=== PATIENT | male | born 1960 | race Caucasian/White ===

== ENCOUNTER 2021-08-19 13:45 | Inpatient (IN) | payer MEDICAID, OTHER ==
[~2021-08-19] VITALS: Ht 162.6 cm; Wt 128.7 kg
[2021-08-19 14:18] LABS: Basophils # (auto) 0.1 10 ^3/uL (0-0.2); Basophils % (auto) 0.8 % (0.0-2.0); Eosinophils # (auto) 0.7 10 ^3/uL (0-0.8); Eosinophils % (auto) 5.6 % (0.0-7.0); Hematocrit 45.5 % (41.0-53.0); Hemoglobin 15.6 g/dL (13.5-17.5); Lymphocytes # (auto) 1.7 10 ^3/uL (0.4-5.4); Lymphocytes % (auto) 14.4 % (10.0-50.0); Mean Corpuscular Hemoglobin 31.6 pg (28.0-32.0); Mean Corpuscular Hgb Conc. 34.2 g/dL (32.0-36.0); Mean Corpuscular Volume 92.5 fL (80.0-100.0); Monocytes # (auto) 1.2 10 ^3/uL (0-1.3); Monocytes % (auto) 10.2 % (0.0-12.0); Neutrophils # (auto) 8.3 10 ^3/uL (1.6-8.6); Nucleated Red Blood Cells % 0.1 %; Red Blood Cells 4.92 10^6/uL (4.5-5.90); Red Cell Distribution Width 13.1 % (11.8-14.3)
[2021-08-19 14:34] LABS: Albumin 3.7 g/dL (3.4-5.0); BUN/Creatinine Ratio 20.8; Calcium 9.6 mg/dL (8.5-10.1); Potassium 4.4 mmol/L (3.5-5.1)
[2021-08-19 14:37] LABS: Bilirubin, Total 0.7 mg/dL (0.2-1.0); Total Protein 8.1 g/dL (6.4-8.2)
[2021-08-19] MEDS ORDERED: ENOXAPARIN SOD 120 MG/0.8 ML SYRINGE SC ONE (15:30)
[2021-08-19] MEDS ORDERED: ONDANSETRON HCL 4 MG/2 ML VIAL IV ONE (16:00)
[2021-08-19] MEDS ORDERED: MORPHINE SULFATE 4 MG/ML SYR/VIAL IV ONE (16:00)
[2021-08-19] MEDS ORDERED: NITROGLYCERIN 0.4 MG SL TAB SL PRN (16:30)
[2021-08-19] MEDS ORDERED: MORPHINE SULFATE INJECTION 2 MG/ML SYRG IV PRN ×2 (16:30)
[2021-08-19] MEDS ORDERED: ONDANSETRON HCL 4 MG/2 ML VIAL IV PRN (16:30)
[2021-08-19] MEDS ORDERED: ACETAMINOPHEN 500 MG TAB PO PRN (16:30)
[2021-08-19] MEDS ORDERED: IOHEXOL 350 MG/ML 100ML IJ ONE (16:36)
[2021-08-19] MEDS: SODIUM CHLORIDE 0.9% 1,000 ML IV SCH (17:44)
[2021-08-19] MEDS: HYDROcodone-ACET 5/325MG TAB PO PRN (19:08)
[2021-08-20] MEDS: SODIUM CHLORIDE 0.9% 1,000 ML IV SCH ×2 (05:56→16:27)
[2021-08-20] MEDS ORDERED: ENOXAPARIN SOD 120 MG/0.8 ML SYRINGE SC SCH (06:00)
[2021-08-20] MEDS: LOSARTAN POTASSIUM 25 MG TAB PO SCH (09:16)
[2021-08-20] MEDS: amLODIPine BESYLATE 5 MG TAB PO SCH (09:17)
[2021-08-20] MEDS: PANTOPRAZOLE 40 MG TAB PO SCH (09:17)
[2021-08-20] MEDS: HYDROcodone-ACET 5/325MG TAB PO PRN ×3 (10:52→21:32)
[2021-08-20 13:06] LABS: INR 1.21 (0.9-1.15); Partial Thromboplastin Time 36.1 sec (23.6-33.0)
[2021-08-20] MEDS: ENOXAPARIN SOD 120 MG/0.8 ML SYRINGE SC SCH (21:32)
[2021-08-20 22:00] VITALS: BP 140/73
[2021-08-20 22:30] VITALS: BP 143/68
[2021-08-21] MEDS: HYDROcodone-ACET 5/325MG TAB PO PRN ×3 (03:30→21:10)
[2021-08-21 05:39] VITALS: BP 152/78
[2021-08-21 06:47] LABS: Basophils # (auto) 0.1 10 ^3/uL (0-0.2); Basophils % (auto) 0.8 % (0.0-2.0); Eosinophils # (auto) 1.1 10 ^3/uL (0-0.8); Eosinophils % (auto) 10.6 % (0.0-7.0); Hematocrit 41.2 % (41.0-53.0); Hemoglobin 14.4 g/dL (13.5-17.5); Lymphocytes # (auto) 1.7 10 ^3/uL (0.4-5.4); Lymphocytes % (auto) 16.5 % (10.0-50.0); Mean Corpuscular Hemoglobin 32.7 pg (28.0-32.0); Mean Corpuscular Volume 93.5 fL (80.0-100.0); Monocytes # (auto) 1.2 10 ^3/uL (0-1.3); Monocytes % (auto) 11.4 % (0.0-12.0); Neutrophils # (auto) 6.4 10 ^3/uL (1.6-8.6); Neutrophils % (auto) 60.7 % (37.0-80.0); Nucleated Red Blood Cells % 0.1 %; Red Blood Cells 4.41 10^6/uL (4.5-5.90); Red Cell Distribution Width 12.9 % (11.8-14.3); White Blood Cell 10.6 10^3/uL (4.4-10.8)
[2021-08-21 07:01] LABS: INR 1.11 (0.9-1.15)
[2021-08-21 07:23] LABS: Magnesium 2.3 mg/dL (1.6-2.6); Potassium 4.3 mmol/L (3.5-5.1)
[2021-08-21 07:31] LABS: Albumin 3.2 g/dL (3.4-5.0); BUN/Creatinine Ratio 25.5; Bilirubin, Total 0.6 mg/dL (0.2-1.0); Calcium 9.4 mg/dL (8.5-10.1); Total Protein 7.4 g/dL (6.4-8.2)
[2021-08-21 09:00] VITALS: BP 109/62
[2021-08-21] MEDS: SODIUM CHLORIDE 0.9% 1,000 ML IV SCH (09:00)
[2021-08-21] MEDS: amLODIPine BESYLATE 5 MG TAB PO SCH (10:30)
[2021-08-21] MEDS: LOSARTAN POTASSIUM 25 MG TAB PO SCH (12:09)
[2021-08-21] MEDS: ENOXAPARIN SOD 120 MG/0.8 ML SYRINGE SC SCH ×2 (12:10→21:09)
[2021-08-21] MEDS: PANTOPRAZOLE 40 MG TAB PO SCH (12:10)
[2021-08-21 13:00] VITALS: BP 138/69
[2021-08-21] MEDS ORDERED: CHOLECALCIFEROL (VITD3) 2,000 UNIT CAP/TAB PO ONE (15:15)
[2021-08-21 17:00] VITALS: BP 139/78
[2021-08-21 22:00] VITALS: BP 122/69
[2021-08-22] MEDS: HYDROcodone-ACET 5/325MG TAB PO PRN ×3 (02:00→21:09)
[2021-08-22] MEDS: SODIUM CHLORIDE 0.9% 1,000 ML IV SCH ×2 (04:37→18:15)
[2021-08-22 05:00] VITALS: BP 132/69
[2021-08-22 06:34] LABS: INR 1.12 (0.9-1.15); Partial Thromboplastin Time 36.2 sec (23.6-33.0)
[2021-08-22 06:37] LABS: Basophils # (auto) 0.1 10 ^3/uL (0-0.2); Basophils % (auto) 0.9 % (0.0-2.0); Eosinophils # (auto) 1.2 10 ^3/uL (0-0.8); Hematocrit 40.8 % (41.0-53.0); Hemoglobin 14.4 g/dL (13.5-17.5); Lymphocytes # (auto) 1.9 10 ^3/uL (0.4-5.4); Lymphocytes % (auto) 21.4 % (10.0-50.0); Mean Corpuscular Hemoglobin 32.9 pg (28.0-32.0); Mean Corpuscular Hgb Conc. 35.3 g/dL (32.0-36.0); Mean Corpuscular Volume 93.3 fL (80.0-100.0); Monocytes # (auto) 0.9 10 ^3/uL (0-1.3); Monocytes % (auto) 10.1 % (0.0-12.0); Neutrophils % (auto) 54.6 % (37.0-80.0); Red Blood Cells 4.38 10^6/uL (4.5-5.90); Red Cell Distribution Width 12.6 % (11.8-14.3); White Blood Cell 9.1 10^3/uL (4.4-10.8)
[2021-08-22 06:47] LABS: BUN/Creatinine Ratio 24.1; Calcium 9.3 mg/dL (8.5-10.1)
[2021-08-22 09:00] VITALS: BP 137/75
[2021-08-22] MEDS: CHOLECALCIFEROL (VITD3) 2,000 UNIT CAP/TAB PO SCH (10:00)
[2021-08-22] MEDS: amLODIPine BESYLATE 5 MG TAB PO SCH (10:00)
[2021-08-22] MEDS: LOSARTAN POTASSIUM 25 MG TAB PO SCH (10:00)
[2021-08-22] MEDS: ENOXAPARIN SOD 120 MG/0.8 ML SYRINGE SC SCH (10:00)
[2021-08-22] MEDS: PANTOPRAZOLE 40 MG TAB PO SCH (10:00)
[2021-08-22] MEDS ORDERED: fentaNYL CITRATE 100 MCG/2 ML VL ONE (12:07)
[2021-08-22] MEDS ORDERED: MIDAZOLAM HCL 2MG/2ML 2ml VIAL (1mg/ml) ONE ×2 (12:07→13:16)
[2021-08-22] MEDS ORDERED: LIDOCAINE 2%HCL (LOCAL ANESTH.) INJ 20ML MDV ONE ×2 (12:09→13:05)
[2021-08-22] MEDS ORDERED: IODIXANOL 320MG/ML 100ML BTL IV ONE (12:09)
[2021-08-22] MEDS ORDERED: SODIUM CHL 0.9% 50 ML ONE ×3 (12:21→14:42)
[2021-08-22] MEDS ORDERED: ANGIOMAX 250 MG VIAL IV ONE ×3 (12:21→14:42)
[2021-08-22] MEDS ORDERED: IOHEXOL 350 MG/ML 100ML IJ ONE (12:28)
[2021-08-22] MEDS ORDERED: diphenhdrAMINE HCL 50 MG/1 ML VL ONE (12:51)
[2021-08-22] MEDS ORDERED: HYDROmorphone HCL 2 MG/ML VL ONE (13:16)
[2021-08-22] MEDS: APIXABAN 5 MG TAB PO SCH (21:54)
[2021-08-23] MEDS: HYDROcodone-ACET 5/325MG TAB PO PRN ×2 (02:45→13:41)
[2021-08-23 05:00] VITALS: BP 149/71
[2021-08-23 06:49] LABS: Basophils # (auto) 0.1 10 ^3/uL (0-0.2); Basophils % (auto) 0.8 % (0.0-2.0); Eosinophils % (auto) 11.3 % (0.0-7.0); Hematocrit 39.2 % (41.0-53.0); Lymphocytes # (auto) 1.7 10 ^3/uL (0.4-5.4); Lymphocytes % (auto) 18.9 % (10.0-50.0); Mean Corpuscular Hgb Conc. 35.6 g/dL (32.0-36.0); Mean Corpuscular Volume 92.8 fL (80.0-100.0); Monocytes # (auto) 0.9 10 ^3/uL (0-1.3); Monocytes % (auto) 10.1 % (0.0-12.0); Neutrophils # (auto) 5.3 10 ^3/uL (1.6-8.6); Neutrophils % (auto) 58.9 % (37.0-80.0); Red Blood Cells 4.23 10^6/uL (4.5-5.90); Red Cell Distribution Width 12.7 % (11.8-14.3)
[2021-08-23 07:08] LABS: BUN/Creatinine Ratio 20.4; Calcium 9.6 mg/dL (8.5-10.1); Potassium 4.1 mmol/L (3.5-5.1)
[2021-08-23 09:19] VITALS: BP 139/76
[2021-08-23] MEDS ORDERED: POLYETHYLENE GLYCOL 17 GM PWDR PO ONE (11:45)
[2021-08-23] MEDS: LOSARTAN POTASSIUM 25 MG TAB PO SCH (12:34)
[2021-08-23] MEDS: APIXABAN 5 MG TAB PO SCH (12:34)
[2021-08-23] MEDS: CHOLECALCIFEROL (VITD3) 2,000 UNIT CAP/TAB PO SCH (12:35)
[2021-08-23] MEDS: amLODIPine BESYLATE 5 MG TAB PO SCH (12:35)
[2021-08-23] MEDS: PANTOPRAZOLE 40 MG TAB PO SCH (12:35)
[2021-08-23 12:56] VITALS: BP 123/98
[2021-08-23] MEDS ORDERED: AML5T PO (16:39)
[2021-08-23] MEDS ORDERED: CHOL500023 PO (16:39)
[2021-08-23] MEDS ORDERED: LOSA25TA38 PO (16:39)
[2021-08-23] MEDS ORDERED: DOCUSATE SOD 100 MG CAP PO SCH (22:00)
== END 2021-08-23 18:33 | disposition home or self-care (01) | DRG 169 ==
LOC: ER 13:45 → TELE 16:22 → TELE-WESTW 08-20 20:15
PROVIDERS: ADMIT Nurse Practitioner Acute Care; ATTEND Internal Medicine
PROC: 06CD3ZZ Extirpation of Matter from Left Common Iliac Vein, Percutaneous Approach (ICD-10-PCS; principal; 2021-08-22)
PROC: B51CYZA Fluoroscopy of Left Lower Extremity Veins using Other Contrast, Guidance (ICD-10-PCS; 2021-08-22)
PROC: B51 Imaging, Veins, Fluoroscopy (ICD-10-PCS; 2021-08-22)
PROC: 06CN3ZZ Extirpation of Matter from Left Femoral Vein, Percutaneous Approach (ICD-10-PCS; 2021-08-22)
PROC: 06CY3ZZ Extirpation of Matter from Lower Vein, Percutaneous Approach (ICD-10-PCS; 2021-08-22)
PROC: 067D3DZ Dilation of Left Common Iliac Vein with Intraluminal Device, Percutaneous Approach (ICD-10-PCS; 2021-08-22)
PROC: B54CZZ3 Ultrasonography of Left Lower Extremity Veins, Intravascular (ICD-10-PCS; 2021-08-22)
DX: I82.412 Acute embolism and thrombosis of left femoral vein (principal); I26.99 Other pulmonary embolism without acute cor pulmonale; J96.00 Acute respiratory failure, unspecified whether with hypoxia or hypercapnia; I82.422 Acute embolism and thrombosis of left iliac vein; R65.10 Systemic inflammatory response syndrome (SIRS) of non-infectious origin without acute organ dysfunction; F31.9 Bipolar disorder, unspecified; F20.9 Schizophrenia, unspecified; I10 Essential (primary) hypertension; E66.01 Morbid (severe) obesity due to excess calories; F10.10 Alcohol abuse, uncomplicated; E78.5 Hyperlipidemia, unspecified; E55.9 Vitamin D deficiency, unspecified; Z20.822 Contact with and (suspected) exposure to COVID-19; E78.1 Pure hyperglyceridemia; F12.90 Cannabis use, unspecified, uncomplicated; Z79.01 Long term (current) use of anticoagulants; Z68.34 Body mass index [BMI] 34.0-34.9, adult
CPT/HCPCS: 36415; 71275; 76942; 80048; 80053; 80061; 81241; 82306; 83735; 84443; 85025; 85301; 85305; 85306; 85384; 85610; 85613; 85670; 85705; 85730; 85732; 86141; 87426; 93005; 93306; 93971; 96372; 96374; 96375; 99152; 99153; G0378; J2250; J2405; Q9967

== ENCOUNTER → 2021-12-11 | Outpatient (CLI) | payer MEDICAID ==
[~2021-12-11] MED LIST: CHOL500023 PO; LOSA25TA38 PO
== END | disposition home or self-care (01) ==
LOC: LAB 08:05
PROVIDERS: ATTEND Internal Medicine
DX: Z12.11 Encounter for screening for malignant neoplasm of colon (principal); I10 Essential (primary) hypertension; E78.5 Hyperlipidemia, unspecified
CPT/HCPCS: 36415; 83036; 84153

== ENCOUNTER → 2021-12-14 | Outpatient (CLI) | payer MEDICAID | END | disposition home or self-care (01) | LOC: LAB 16:54 | PROVIDERS: ATTEND Internal Medicine | DX: Z12.11 Encounter for screening for malignant neoplasm of colon (principal); E78.5 Hyperlipidemia, unspecified; E55.9 Vitamin D deficiency, unspecified; I10 Essential (primary) hypertension | CPT/HCPCS: 82270 ==

== ENCOUNTER 2022-02-14 06:47 | Emergency (ER) | payer MEDICAID ==
[~2022-02-14] VITALS: Ht 182.9 cm; Wt 135.2 kg
[2022-02-14 07:36] LABS: Amphetamine Screen, Urine NEGATIVE (NEGATIVE); Barbiturate Scree,Urine NEGATIVE (NEGATIVE); Benzodiazephine Screen, Urine NEGATIVE (NEGATIVE); Cannabinoid Screen, Urine POSITIVE (NEGATIVE); Cocaine Screen, Urine NEGATIVE (NEGATIVE); Phencyclidine Screen, Urine NEGATIVE (NEGATIVE)
[2022-02-14 07:40] LABS: Basophils # (auto) 0.1 10 ^3/uL (0-0.2); Eosinophils # (auto) 0.1 10 ^3/uL (0-0.8); Eosinophils % (auto) 1.4 % (0.0-7.0); Hematocrit 44.6 % (41.0-53.0); Hemoglobin 15.9 g/dL (13.5-17.5); Lymphocytes # (auto) 1.5 10 ^3/uL (0.4-5.4); Lymphocytes % (auto) 17.6 % (10.0-50.0); Mean Corpuscular Hemoglobin 32.2 pg (28.0-32.0); Mean Corpuscular Hgb Conc. 35.7 g/dL (32.0-36.0); Mean Corpuscular Volume 90.4 fL (80.0-100.0); Monocytes # (auto) 0.7 10 ^3/uL (0-1.3); Monocytes % (auto) 8.7 % (0.0-12.0); Neutrophils % (auto) 71.3 % (37.0-80.0); Nucleated Red Blood Cells % 0.2 %; Red Blood Cells 4.94 10^6/uL (4.5-5.90); Red Cell Distribution Width 13.9 % (11.8-14.3); White Blood Cell 8.4 10^3/uL (4.4-10.8)
[2022-02-14 07:43] LABS: Opiate Scree,Urine NEGATIVE (NEGATIVE)
[2022-02-14] MEDS ORDERED: ONDANSETRON HCL 4 MG/2 ML VIAL IV ONE (08:00)
[2022-02-14] MEDS ORDERED: SODIUM CHLORIDE 0.9% 1,000 ML IV ONE (08:00)
[2022-02-14 08:01] LABS: Chloride 106 mmol/L (98-107); Sodium 137 mmol/L (136-145)
[2022-02-14 08:08] LABS: Urine Bacteria NONE SEEN /hpf (None Seen); Urine Blood Negative /uL (Negative); Urine Specific Gravity 1.018 (1.001-1.035); Urine WBC 1 /hpf (0 - 3)
[2022-02-14 08:09] LABS: Alanine Aminotransferase 43 U/L (16-61); Alkaline Phosphatase 68 U/L (45-117); Anion Gap 5 (5-15); Aspartate Aminotransferase 25 U/L (15-37); BUN/Creatinine Ratio 14.3; Bilirubin, Total 0.6 mg/dL (0.2-1.0); Blood Alcohol < 3.0 mg/dL (0-5); Blood Urea Nitrogen 14 mg/dL (7-18); Carbon Dioxide 26 mmol/L (21-32); GFR African American 100 mL/min; GFR Non-African American 83 mL/min; Glucose 94 mg/dL (74-106); Total Protein 7.9 g/dL (6.4-8.2)
[2022-02-14 15:48] VITALS: BP 143/55
[2022-02-14] MEDS ORDERED: THIAMINE HCL 100 MG TAB PO ONE (16:15)
== END 2022-02-14 15:50 | disposition home or self-care (01) ==
LOC: ER 06:47
DX: R10.13 Epigastric pain (principal); F10.10 Alcohol abuse, uncomplicated; F12.10 Cannabis abuse, uncomplicated; D18.00 Hemangioma unspecified site; Z20.822 Contact with and (suspected) exposure to COVID-19
CPT/HCPCS: 36415; 70450; 74176; 80053; 80307; 80320; 81001; 83690; 83735; 85025; 87426; 93005; 96361; 96374; 99285; J2405; J7030

== ENCOUNTER 2022-05-30 05:04 | Inpatient (IN) | payer MEDICAID, MEDICARE ==
[~2022-05-30] VITALS: Ht 182.9 cm; Wt 114.5 kg
[~2022-05-30 05:04] MED LIST changes: +LORazepam 2MG/ML-1ML VIAL IV ONE
[2022-05-30 05:48] LABS: Alanine Aminotransferase 69 U/L (16-61); Albumin 3.7 g/dL (3.4-5.0); Alkaline Phosphatase 76 U/L (45-117); Amylase 112 U/L (25-115); Anion Gap 13 (5-15); Aspartate Aminotransferase 75 U/L (15-37); BUN/Creatinine Ratio 10.7; Bilirubin, Total 1.5 mg/dL (0.2-1.0); Blood Alcohol < 3.0 mg/dL (0-5); Blood Urea Nitrogen 13 mg/dL (7-18); Calcium 9.9 mg/dL (8.5-10.1); Carbon Dioxide 24 mmol/L (21-32); Chloride 98 mmol/L (98-107); GFR African American 78 mL/min; GFR Non-African American 65 mL/min; Glucose 180 mg/dL (74-106); Potassium 3.6 mmol/L (3.5-5.1); Sodium 135 mmol/L (136-145)
[2022-05-30 05:49] LABS: Lipase 3833 U/L (73-393)
[2022-05-30 06:10] LABS: INR 1.21 (0.9-1.15); Partial Thromboplastin Time 30.6 sec (23.6-33.0)
[2022-05-30 06:11] LABS: Basophils # (auto) 0 10 ^3/uL (0-0.2); Basophils % (auto) 0.2 % (0.0-2.0); Eosinophils # (auto) 0 10 ^3/uL (0-0.8); Hematocrit 45.6 % (41.0-53.0); Lymphocytes # (auto) 0.4 10 ^3/uL (0.4-5.4); Lymphocytes % (auto) 3.7 % (10.0-50.0); Mean Corpuscular Hemoglobin 33.5 pg (28.0-32.0); Mean Corpuscular Hgb Conc. 35.1 g/dL (32.0-36.0); Mean Corpuscular Volume 95.6 fL (80.0-100.0); Monocytes # (auto) 0.7 10 ^3/uL (0-1.3); Monocytes % (auto) 6.3 % (0.0-12.0); Neutrophils # (auto) 10.3 10 ^3/uL (1.6-8.6); Neutrophils % (auto) 89.8 % (37.0-80.0); Nucleated Red Blood Cells % 0.3 %; Red Blood Cells 4.77 10^6/uL (4.5-5.90); Red Cell Distribution Width 14.6 % (11.8-14.3); White Blood Cell 11.5 10^3/uL (4.4-10.8)
[2022-05-30] MEDS ORDERED: MORPHINE SULFATE INJ 2 MG/ml SYRG IV ONE (06:30)
[2022-05-30] MEDS ORDERED: PANTOPRAZOLE 40 MG/10 ML VIAL INJ IV ONE (06:30)
[2022-05-30] MEDS ORDERED: ONDANSETRON HCL 4 MG/2 ML VIAL IV ONE (06:30)
[2022-05-30] MEDS ORDERED: LORazepam 2MG/ML-1ML VIAL IV ONE (06:30)
[2022-05-30] MEDS ORDERED: cefTRIAXone 1GM/50ML D5W 50 ML IV ONE (06:30)
[2022-05-30] MEDS ORDERED: chlordiazePOXIDE HCL 5 MG CAP PO ONE (06:30)
[2022-05-30] MEDS ORDERED: metroNIDAZOLE 500MG/100ML 100 ML IV ONE ×2 (06:30→07:30)
[2022-05-30] MEDS ORDERED: LABETALOL HCL 5 MG/ML 4ML SYRINGE IV ONE (07:30)
[2022-05-30 07:34] LABS: Lactic Acid w/Reflex 2.8 mmol/L (0.4-2.0)
[2022-05-30] MEDS ORDERED: ONDANSETRON HCL 4 MG/2 ML VIAL IV PRN (11:15)
[2022-05-30] MEDS ORDERED: SODIUM CHLORIDE 0.9% 1,000 ML IV ONE (11:30)
[2022-05-30 11:39] LABS: Magnesium 1.3 mg/dL (1.6-2.6)
[2022-05-30] MEDS: SODIUM CHLORIDE 0.9% 1,000 ML IV SCH ×2 (11:56→23:21)
[2022-05-30] MEDS: MORPHINE SULFATE INJ 2 MG/ml SYRG IV PRN ×2 (15:55→22:33)
[2022-05-30 16:30] VITALS: BP 169/89
[2022-05-30 22:00] VITALS: BP 155/88
[2022-05-31] VITALS (7 sets, daily range): BP systolic 146–172; BP diastolic 87–99
[2022-05-31] MEDS: MORPHINE SULFATE INJ 2 MG/ml SYRG IV PRN ×6 (03:31→22:48)
[2022-05-31] MEDS: SODIUM CHLORIDE 0.9% 1,000 ML IV SCH ×3 (04:17→18:21)
[2022-05-31 07:25] LABS: Basophils # (auto) 0 10 ^3/uL (0-0.2); Basophils % (auto) 0.2 % (0.0-2.0); Eosinophils # (auto) 0.1 10 ^3/uL (0-0.8); Eosinophils % (auto) 1.3 % (0.0-7.0); Hematocrit 38.4 % (41.0-53.0); Hemoglobin 13.6 g/dL (13.5-17.5); Lymphocytes # (auto) 0.6 10 ^3/uL (0.4-5.4); Lymphocytes % (auto) 6.7 % (10.0-50.0); Mean Corpuscular Hemoglobin 34.4 pg (28.0-32.0); Mean Corpuscular Hgb Conc. 35.5 g/dL (32.0-36.0); Mean Corpuscular Volume 96.7 fL (80.0-100.0); Monocytes # (auto) 0.7 10 ^3/uL (0-1.3); Monocytes % (auto) 7.1 % (0.0-12.0); Neutrophils # (auto) 7.9 10 ^3/uL (1.6-8.6); Neutrophils % (auto) 84.7 % (37.0-80.0); Nucleated Red Blood Cells % 0.1 %; Red Blood Cells 3.97 10^6/uL (4.5-5.90); Red Cell Distribution Width 14.7 % (11.8-14.3); White Blood Cell 9.3 10^3/uL (4.4-10.8)
[2022-05-31 07:28] LABS: Albumin 2.8 g/dL (3.4-5.0); Calcium 8.7 mg/dL (8.5-10.1); Potassium 3.5 mmol/L (3.5-5.1)
[2022-05-31 07:32] LABS: Bilirubin, Total 1.5 mg/dL (0.2-1.0); Total Protein 6.8 g/dL (6.4-8.2)
[2022-05-31] MEDS: PANTOPRAZOLE 40 MG/10 ML VIAL INJ IV SCH (10:22)
[2022-05-31] MEDS: cefTRIAXone 1GM/50ML D5W 50 ML IV SCH (10:22)
[2022-05-31] MEDS: metroNIDAZOLE 500MG/100ML 100 ML IV SCH ×2 (14:42→21:21)
[2022-05-31] MEDS: ATORVASTATIN 20 MG TAB PO SCH (21:20)
[2022-05-31] MEDS: HEPARIN SODIUM (PORCINE) 5000 UNITS/ML 1ML VIAL SC SCH (21:20)
[2022-06-01] VITALS (7 sets, daily range): BP systolic 150–167; BP diastolic 71–91
[2022-06-01] MEDS: SODIUM CHLORIDE 0.9% 1,000 ML IV SCH ×4 (00:35→20:35)
[2022-06-01] MEDS: MORPHINE SULFATE INJ 2 MG/ml SYRG IV PRN ×2 (02:42→07:01)
[2022-06-01] MEDS: metroNIDAZOLE 500MG/100ML 100 ML IV SCH ×3 (05:31→22:01)
[2022-06-01] MEDS: PANTOPRAZOLE 40 MG/10 ML VIAL INJ IV SCH (09:34)
[2022-06-01] MEDS: cefTRIAXone 1GM/50ML D5W 50 ML IV SCH (09:34)
[2022-06-01] MEDS: HEPARIN SODIUM (PORCINE) 5000 UNITS/ML 1ML VIAL SC SCH ×2 (09:41→22:04)
[2022-06-01 13:20] LABS: Basophils # (auto) 0 10 ^3/uL (0-0.2); Basophils % (auto) 0.5 % (0.0-2.0); Eosinophils # (auto) 0.2 10 ^3/uL (0-0.8); Eosinophils % (auto) 2.8 % (0.0-7.0); Hematocrit 38.3 % (41.0-53.0); Hemoglobin 13.1 g/dL (13.5-17.5); Lymphocytes # (auto) 0.7 10 ^3/uL (0.4-5.4); Lymphocytes % (auto) 9.5 % (10.0-50.0); Mean Corpuscular Hemoglobin 33.2 pg (28.0-32.0); Mean Corpuscular Hgb Conc. 34.3 g/dL (32.0-36.0); Mean Corpuscular Volume 96.8 fL (80.0-100.0); Monocytes # (auto) 0.6 10 ^3/uL (0-1.3); Monocytes % (auto) 7.8 % (0.0-12.0); Neutrophils # (auto) 6.2 10 ^3/uL (1.6-8.6); Neutrophils % (auto) 79.4 % (37.0-80.0); Nucleated Red Blood Cells % 0.1 %; Red Blood Cells 3.96 10^6/uL (4.5-5.90); Red Cell Distribution Width 14.5 % (11.8-14.3); White Blood Cell 7.8 10^3/uL (4.4-10.8)
[2022-06-01 13:39] LABS: Albumin 2.8 g/dL (3.4-5.0); BUN/Creatinine Ratio 20.6; Calcium 8.5 mg/dL (8.5-10.1)
[2022-06-01 13:42] LABS: Bilirubin, Total 1.1 mg/dL (0.2-1.0); Total Protein 6.9 g/dL (6.4-8.2)
[2022-06-01 13:47] LABS: Potassium 2.9 mmol/L (3.5-5.1)
[2022-06-01] MEDS ORDERED: MAGNESIUM SULFATE 1GM/100ML 100 ML IV ONE (14:00)
[2022-06-01] MEDS: HYDROcodone-ACET 5/325MG TAB PO PRN ×2 (15:05→23:10)
[2022-06-01] MEDS: POTASSIUM CHL 20MEQ/100ML 100 ML IV SCH ×2 (15:41→19:11)
[2022-06-01] MEDS ORDERED: MIDODRINE HCL 10 MG TAB PO SCH (18:00)
[2022-06-01] MEDS: POTASSIUM CHL 20 Meq TABLET PO SCH (22:02)
[2022-06-01] MEDS: ATORVASTATIN 20 MG TAB PO SCH (22:03)
[2022-06-02] VITALS (7 sets, daily range): BP systolic 140–163; BP diastolic 67–96
[2022-06-02] MEDS: metroNIDAZOLE 500MG/100ML 100 ML IV SCH (05:42)
[2022-06-02] MEDS: SODIUM CHLORIDE 0.9% 1,000 ML IV SCH ×4 (05:43→23:15)
[2022-06-02 06:05] LABS: Basophils # (auto) 0 10 ^3/uL (0-0.2); Basophils % (auto) 0.3 % (0.0-2.0); Eosinophils # (auto) 0.2 10 ^3/uL (0-0.8); Eosinophils % (auto) 3.2 % (0.0-7.0); Hematocrit 37.2 % (41.0-53.0); Hemoglobin 13.2 g/dL (13.5-17.5); Lymphocytes # (auto) 0.8 10 ^3/uL (0.4-5.4); Lymphocytes % (auto) 12.6 % (10.0-50.0); Mean Corpuscular Hemoglobin 33.8 pg (28.0-32.0); Mean Corpuscular Hgb Conc. 35.5 g/dL (32.0-36.0); Mean Corpuscular Volume 95.3 fL (80.0-100.0); Monocytes # (auto) 0.6 10 ^3/uL (0-1.3); Monocytes % (auto) 10.2 % (0.0-12.0); Neutrophils # (auto) 4.6 10 ^3/uL (1.6-8.6); Neutrophils % (auto) 73.7 % (37.0-80.0); Red Cell Distribution Width 14.4 % (11.8-14.3); White Blood Cell 6.3 10^3/uL (4.4-10.8)
[2022-06-02 06:19] LABS: Albumin 2.6 g/dL (3.4-5.0); Potassium 3.2 mmol/L (3.5-5.1)
[2022-06-02 06:25] LABS: BUN/Creatinine Ratio 14.5; Bilirubin, Total 0.9 mg/dL (0.2-1.0); Total Protein 6.8 g/dL (6.4-8.2)
[2022-06-02] MEDS: HYDROcodone-ACET 5/325MG TAB PO PRN ×3 (07:16→20:21)
[2022-06-02] MEDS: cefTRIAXone 1GM/50ML D5W 50 ML IV SCH (10:07)
[2022-06-02] MEDS: POTASSIUM CHL 20 Meq TABLET PO SCH (10:08)
[2022-06-02] MEDS: LOSARTAN POTASSIUM 25 MG TAB PO SCH (10:08)
[2022-06-02] MEDS: PANTOPRAZOLE 40 MG/10 ML VIAL INJ IV SCH (10:09)
[2022-06-02] MEDS: HEPARIN SODIUM (PORCINE) 5000 UNITS/ML 1ML VIAL SC SCH ×2 (10:16→22:36)
[2022-06-02] MEDS: MORPHINE SULFATE INJ 2 MG/ml SYRG IV PRN ×2 (11:53→16:59)
[2022-06-02] MEDS: hydrALAZINE HCL 20 MG/ML VL IV PRN (18:36)
[2022-06-02] MEDS: QUEtiapine FUMARATE 25 MG TAB PO SCH (22:31)
[2022-06-02] MEDS: ATORVASTATIN 20 MG TAB PO SCH (22:31)
[2022-06-03] MEDS: HYDROcodone-ACET 5/325MG TAB PO PRN ×4 (03:14→21:19)
[2022-06-03 05:00] VITALS: BP 160/90
[2022-06-03] MEDS: SODIUM CHLORIDE 0.9% 1,000 ML IV SCH ×3 (06:03→19:15)
[2022-06-03 06:38] LABS: Hematocrit 36.6 % (41.0-53.0); Mean Corpuscular Hemoglobin 33.5 pg (28.0-32.0); Mean Corpuscular Hgb Conc. 35.6 g/dL (32.0-36.0); Red Blood Cells 3.89 10^6/uL (4.5-5.90); Red Cell Distribution Width 14.6 % (11.8-14.3); White Blood Cell 6.6 10^3/uL (4.4-10.8)
[2022-06-03 06:49] LABS: Basophils % (manual) 0 (0.0-2.0); Blast Cells 0; Promyelocytes % 0; Reactive Lymphocytes 0
[2022-06-03 06:55] LABS: Albumin 2.8 g/dL (3.4-5.0); BUN/Creatinine Ratio 14.5; Calcium 8.3 mg/dL (8.5-10.1)
[2022-06-03 06:57] LABS: Bilirubin, Total 0.8 mg/dL (0.2-1.0); Total Protein 6.6 g/dL (6.4-8.2)
[2022-06-03 08:29] LABS: Band Neutrophils % (manual) 1; Eosinophils % (manual) 2 (0-7); Lymphocytes % (manual) 26 (10.0-50.0); Metamyelocytes % 2; Monocytes % (manual) 6 (0-12); Myelocytes % 1
[2022-06-03] MEDS: PANTOPRAZOLE 40 MG/10 ML VIAL INJ IV SCH (08:39)
[2022-06-03] MEDS: QUEtiapine FUMARATE 25 MG TAB PO SCH ×2 (08:40→21:19)
[2022-06-03] MEDS: LOSARTAN POTASSIUM 25 MG TAB PO SCH (08:56)
[2022-06-03 09:00] VITALS: BP 169/85
[2022-06-03] MEDS ORDERED: GADOTERATE MEG 10 MMOL/20ml INJ (0.5MMOL/ml) IV ONE (11:04)
[2022-06-03] MEDS ORDERED: POTASSIUM CHL 20 Meq TABLET PO ONE ×2 (12:00→18:00)
[2022-06-03 13:00] VITALS: BP 133/69
[2022-06-03] MEDS: HEPARIN SODIUM (PORCINE) 5000 UNITS/ML 1ML VIAL SC SCH ×2 (15:11→21:21)
[2022-06-03 17:00] VITALS: BP 158/87
[2022-06-03] MEDS: ATORVASTATIN 20 MG TAB PO SCH (21:19)
[2022-06-03] MEDS: hydrALAZINE HCL 20 MG/ML VL IV PRN (21:30)
[2022-06-03 22:00] VITALS: BP 160/87
[2022-06-04] MEDS: SODIUM CHLORIDE 0.9% 1,000 ML IV SCH ×2 (01:55→08:35)
[2022-06-04] MEDS: HYDROcodone-ACET 5/325MG TAB PO PRN (04:38)
[2022-06-04 05:00] VITALS: BP 166/92
[2022-06-04 08:00] VITALS: BP 162/89
[2022-06-04 09:00] VITALS: BP 179/100
[2022-06-04 09:32] LABS: Hematocrit 38.4 % (41.0-53.0); Hemoglobin 13.2 g/dL (13.5-17.5); Mean Corpuscular Hemoglobin 32.5 pg (28.0-32.0); Mean Corpuscular Hgb Conc. 34.4 g/dL (32.0-36.0); Mean Corpuscular Volume 94.4 fL (80.0-100.0); Red Blood Cells 4.07 10^6/uL (4.5-5.90); Red Cell Distribution Width 14.7 % (11.8-14.3); White Blood Cell 7.4 10^3/uL (4.4-10.8)
[2022-06-04] MEDS: PANTOPRAZOLE 40 MG/10 ML VIAL INJ IV SCH (09:50)
[2022-06-04] MEDS: QUEtiapine FUMARATE 25 MG TAB PO SCH (09:50)
[2022-06-04] MEDS: LOSARTAN POTASSIUM 25 MG TAB PO SCH (09:53)
[2022-06-04] MEDS: HEPARIN SODIUM (PORCINE) 5000 UNITS/ML 1ML VIAL SC SCH (09:57)
[2022-06-04] MEDS: hydrALAZINE HCL 20 MG/ML VL IV PRN (09:58)
[2022-06-04 10:02] LABS: BUN/Creatinine Ratio 15.1; Calcium 8.9 mg/dL (8.5-10.1); Potassium 3.2 mmol/L (3.5-5.1)
[2022-06-04 10:10] LABS: Basophils % (manual) 0 (0.0-2.0); Blast Cells 0; Myelocytes % 0; Promyelocytes % 0; Reactive Lymphocytes 0
[2022-06-04] MEDS ORDERED: PANT40TA2 PO (11:01)
[2022-06-04 11:35] LABS: Band Neutrophils % (manual) 1; Eosinophils % (manual) 1 (0-7); Lymphocytes % (manual) 16 (10.0-50.0); Metamyelocytes % 2; Monocytes % (manual) 16 (0-12)
[2022-06-04 12:50] VITALS: BP 143/70
[2022-06-04 13:00] VITALS: BP 143/70
[2022-06-04] MEDS ORDERED: POTASSIUM EFFERVESENT TAB 25 MEQ GT ONE (13:00)
[2022-06-04 13:42] VITALS: BP 162/89
== END 2022-06-04 14:10 | disposition home or self-care (01) | DRG 282 ==
LOC: ER 05:04 → OVERFLOW 11:15 → WEST WING 12:48
PROVIDERS: ADMIT Registered Nurse; ATTEND Internal Medicine Pulmonary Disease
DX: K85.20 Alcohol induced acute pancreatitis without necrosis or infection (principal); K92.0 Hematemesis; R65.10 Systemic inflammatory response syndrome (SIRS) of non-infectious origin without acute organ dysfunction; K85.10 Biliary acute pancreatitis without necrosis or infection; K86.0 Alcohol-induced chronic pancreatitis; E66.01 Morbid (severe) obesity due to excess calories; Z20.822 Contact with and (suspected) exposure to COVID-19; E78.5 Hyperlipidemia, unspecified; F10.10 Alcohol abuse, uncomplicated; F20.9 Schizophrenia, unspecified; F31.9 Bipolar disorder, unspecified; F41.9 Anxiety disorder, unspecified; I12.9 Hypertensive chronic kidney disease with stage 1 through stage 4 chronic kidney disease, or unspecified chronic kidney disease; K76.0 Fatty (change of) liver, not elsewhere classified; K80.20 Calculus of gallbladder without cholecystitis without obstruction; N18.2 Chronic kidney disease, stage 2 (mild); Z68.38 Body mass index [BMI] 38.0-38.9, adult; Z79.01 Long term (current) use of anticoagulants; Z86.718 Personal history of other venous thrombosis and embolism; Z88.2 Allergy status to sulfonamides
CPT/HCPCS: 36415; 74176; 74183; 76705; 80048; 80053; 80061; 80320; 82150; 83036; 83605; 83690; 83735; 84484; 85007; 85025; 85027; 85610; 85730; 87040; 93005; 96374; 96375; 99291; C9113; G0378; J0696; J2405; J3480; J3490

== ENCOUNTER → 2022-07-22 | Outpatient (CLI) | payer MEDICARE, MEDICAID ==
[~2022-07-22] MED LIST changes: -LORazepam 2MG/ML-1ML VIAL IV ONE; +PANT40TA2 PO
[2022-07-22 08:46] LABS: Basophils # (auto) 0 10 ^3/uL (0-0.2); Basophils % (auto) 0.7 % (0.0-2.0); Eosinophils # (auto) 0 10 ^3/uL (0-0.8); Eosinophils % (auto) 0.8 % (0.0-7.0); Hematocrit 42.7 % (41.0-53.0); Hemoglobin 14.8 g/dL (13.5-17.5); Lymphocytes # (auto) 1.1 10 ^3/uL (0.4-5.4); Lymphocytes % (auto) 17.8 % (10.0-50.0); Mean Corpuscular Hemoglobin 32.5 pg (28.0-32.0); Mean Corpuscular Hgb Conc. 34.6 g/dL (32.0-36.0); Monocytes # (auto) 0.7 10 ^3/uL (0-1.3); Monocytes % (auto) 10.7 % (0.0-12.0); Neutrophils # (auto) 4.5 10 ^3/uL (1.6-8.6); Nucleated Red Blood Cells % 0.2 %; Red Blood Cells 4.55 10^6/uL (4.5-5.90); Red Cell Distribution Width 13.6 % (11.8-14.3); White Blood Cell 6.4 10^3/uL (4.4-10.8)
[2022-07-22 09:18] LABS: Calcium 8.7 mg/dL (8.5-10.1); Potassium 3.2 mmol/L (3.5-5.1)
[2022-07-22 09:22] LABS: BUN/Creatinine Ratio 11.1; Bilirubin, Total 0.8 mg/dL (0.2-1.0); Total Protein 7.7 g/dL (6.4-8.2)
== END | disposition home or self-care (01) ==
LOC: LAB 08:19
PROVIDERS: ATTEND Internal Medicine
DX: I10 Essential (primary) hypertension (principal); E55.9 Vitamin D deficiency, unspecified; E78.5 Hyperlipidemia, unspecified; R41.3 Other amnesia; E87.6 Hypokalemia; K76.0 Fatty (change of) liver, not elsewhere classified
CPT/HCPCS: 36415; 80053; 82105; 82306; 82378; 83036; 85025

== ENCOUNTER → 2022-08-19 | Outpatient (CLI) | payer MEDICARE, MEDICAID ==
[2022-08-19 08:39] LABS: BUN/Creatinine Ratio 15.5; Calcium 9.3 mg/dL (8.5-10.1); Potassium 3.8 mmol/L (3.5-5.1)
== END | disposition home or self-care (01) ==
LOC: LAB 07:27
PROVIDERS: ATTEND Internal Medicine
DX: E87.6 Hypokalemia (principal)
CPT/HCPCS: 36415; 80048

== ENCOUNTER 2023-04-15 14:30 | Inpatient (IN) | payer MEDICARE, MEDICAID ==
[~2023-04-15] VITALS: Ht 188 cm; Wt 130.7 kg
[2023-04-15 16:00] LABS: Albumin 3.6 g/dL (3.4-5.0); Potassium 3.4 mmol/L (3.5-5.1)
[2023-04-15] MEDS ORDERED: MORPHINE SULFATE 4 MG/ML SYR/VIAL IV ONE (16:00)
[2023-04-15] MEDS ORDERED: ONDANSETRON HCL 4 MG/2 ML VIAL IV ONE (16:00)
[2023-04-15 16:04] LABS: BUN/Creatinine Ratio 9.7 (10.0-20.0); Bilirubin, Total 2.1 mg/dL (0.2-1.0); Calcium 8.1 mg/dL (8.5-10.1); Total Protein 7.2 g/dL (6.4-8.2)
[2023-04-15 16:47] LABS: INR 1.18 (0.9-1.15); Partial Thromboplastin Time 29.8 sec (24.6-33.4)
[2023-04-15 16:55] LABS: Basophils # (auto) 0.1 10 ^3/uL (0-0.2); Basophils % (auto) 0.8 % (0.0-2.0); Eosinophils # (auto) 0 10 ^3/uL (0-0.8); Eosinophils % (auto) 0.1 % (0.0-7.0); Hematocrit 42.1 % (41.0-53.0); Lymphocytes # (auto) 0.8 10 ^3/uL (0.4-5.4); Lymphocytes % (auto) 7.6 % (10.0-50.0); Mean Corpuscular Hemoglobin 35.7 pg (28.0-32.0); Mean Corpuscular Hgb Conc. 35.7 g/dL (32.0-36.0); Monocytes # (auto) 0.7 10 ^3/uL (0-1.3); Neutrophils # (auto) 8.4 10 ^3/uL (1.6-8.6); Neutrophils % (auto) 84.5 % (37.0-80.0); Nucleated Red Blood Cells % 0.5 %; Red Blood Cells 4.21 10^6/uL (4.5-5.90); Red Cell Distribution Width 13.6 % (11.8-14.3)
[2023-04-15] MEDS ORDERED: THIAMINE HCL 100 MG TAB PO ONE (19:45)
[2023-04-15] MEDS ORDERED: MULTIPLE VITAMIN TAB PO ONE (19:45)
[2023-04-15] MEDS ORDERED: POTASSIUM EFFERVESENT TAB 25 MEQ PO ONE (19:45)
[2023-04-15] MEDS ORDERED: FOLIC ACID 1 MG TAB PO ONE (19:45)
[2023-04-15] MEDS ORDERED: NITROGLYCERIN 0.4 MG SL TAB SL PRN (19:45)
[2023-04-15] MEDS ORDERED: PANTOPRAZOLE 40 MG/10 ML VIAL INJ IV ONE (19:45)
[2023-04-15] MEDS ORDERED: MORPHINE SULFATE INJ 2 MG/ml SYRG IV PRN (19:45)
[2023-04-15] MEDS ORDERED: SODIUM CHLORIDE 0.9% 500 ML IV ONE (20:15)
[2023-04-15] MEDS ORDERED: SODIUM CHLORIDE 0.9% 1,000 ML IV ONE (20:15)
[2023-04-15 20:34] LABS: Cholesterol 261 mg/dL (< 200); HDL Cholesterol 19 mg/dL (40-59); Triglycerides 1871 mg/dL (< 150)
[2023-04-15] MEDS: MORPHINE SULFATE INJ 2 MG/ml SYRG IV PRN (20:48)
[2023-04-15] MEDS: SODIUM CHLORIDE 0.9% 1,000 ML IV SCH (22:26)
[2023-04-16] MEDS ORDERED: HYDROcodone-ACET 7.5/325MG TAB PO ONE (00:30)
[2023-04-16] MEDS ORDERED: TEMAZEPAM 15 MG CAP PO ONE (00:30)
[2023-04-16] MEDS ORDERED: dilTIAZem 25 MG/5 ML VIAL IV ONE (00:30)
[2023-04-16] MEDS: SODIUM CHLORIDE 0.9% 1,000 ML IV SCH ×2 (05:23→12:44)
[2023-04-16] MEDS: MORPHINE SULFATE INJ 2 MG/ml SYRG IV PRN ×4 (05:24→22:20)
[2023-04-16 05:46] LABS: Eosinophils # (auto) 0.1 10 ^3/uL (0-0.8); Monocytes # (auto) 0.5 10 ^3/uL (0-1.3); Neutrophils # (auto) 4.1 10 ^3/uL (1.6-8.6); Nucleated Red Blood Cells % 0.1 %
[2023-04-16 05:50] LABS: Basophils # (auto) 0 10 ^3/uL (0-0.2); Basophils % (auto) 0.7 % (0.0-2.0); Eosinophils % (auto) 2.4 % (0.0-7.0); Hematocrit 39.4 % (41.0-53.0); Hemoglobin 14.1 g/dL (13.5-17.5); Lymphocytes # (auto) 0.8 10 ^3/uL (0.4-5.4); Lymphocytes % (auto) 14.1 % (10.0-50.0); Mean Corpuscular Hgb Conc. 35.9 g/dL (32.0-36.0); Mean Corpuscular Volume 100.2 fL (80.0-100.0); Monocytes % (auto) 9.4 % (0.0-12.0); Neutrophils % (auto) 73.4 % (37.0-80.0); Red Blood Cells 3.93 10^6/uL (4.5-5.90); Red Cell Distribution Width 13.6 % (11.8-14.3); White Blood Cell 5.5 10^3/uL (4.4-10.8)
[2023-04-16 06:07] LABS: Potassium 3.2 mmol/L (3.5-5.1)
[2023-04-16 06:13] LABS: Albumin 3.1 g/dL (3.4-5.0); Calcium 7.9 mg/dL (8.5-10.1); Total Protein 6.6 g/dL (6.4-8.2)
[2023-04-16] MEDS: PANTOPRAZOLE 40 MG/10 ML VIAL INJ IV SCH (10:11)
[2023-04-16] MEDS: FOLIC ACID 1 MG TAB PO SCH (10:12)
[2023-04-16] MEDS: CHOLECALCIFEROL (VITD3) 2,000 UNIT CAP/TAB PO SCH (10:12)
[2023-04-16] MEDS: THIAMINE HCL 100 MG TAB PO SCH (10:12)
[2023-04-16] MEDS: MULTIPLE VITAMIN TAB PO SCH (10:12)
[2023-04-16] MEDS: LOSARTAN POTASSIUM 25 MG TAB PO SCH (10:12)
[2023-04-16 10:17] LABS: Urine Bacteria NONE SEEN /hpf (None Seen); Urine Blood Negative /uL (Negative); Urine Specific Gravity 1.006 (1.001-1.035); Urine WBC 2 /hpf (0 - 3)
[2023-04-16 10:35] LABS: Alcohol, Urine < 3.0 mg/dL (0-10); Amphetamine Screen, Urine NEGATIVE (NEGATIVE); Barbiturate Scree,Urine NEGATIVE (NEGATIVE); Benzodiazephine Screen, Urine NEGATIVE (NEGATIVE); Cannabinoid Screen, Urine NEGATIVE (NEGATIVE)
[2023-04-16 10:37] LABS: Cocaine Screen, Urine NEGATIVE (NEGATIVE); Opiate Scree,Urine POSITIVE (NEGATIVE); Phencyclidine Screen, Urine NEGATIVE (NEGATIVE)
[2023-04-16 10:55] VITALS: BP 158/109
[2023-04-16 15:59] VITALS: BP 169/104
[2023-04-16] MEDS ORDERED: POTASSIUM CHL 20 Meq TABLET PO ONE (16:00)
[2023-04-16 17:02] VITALS: BP 192/102
[2023-04-16] MEDS: cloNIDine HCL 0.1 MG TAB PO PRN ×2 (17:17→23:32)
[2023-04-16] MEDS: LACTATED RINGER'S 1,000 ML IV SCH (18:54)
[2023-04-16 22:00] VITALS: BP 156/92
[2023-04-16] MEDS: MEROPENEM 500MG IVPB 50 ML IV SCH (22:14)
[2023-04-16] MEDS: LORazepam 2MG/ML-1ML VIAL IV PRN (22:15)
[2023-04-17] VITALS (7 sets, daily range): BP systolic 138–177; BP diastolic 74–95
[2023-04-17 06:18] LABS: Basophils # (auto) 0 10 ^3/uL (0-0.2); Basophils % (auto) 0.8 % (0.0-2.0); Eosinophils # (auto) 0.3 10 ^3/uL (0-0.8); Hemoglobin 12.5 g/dL (13.5-17.5); Lymphocytes # (auto) 0.9 10 ^3/uL (0.4-5.4); Lymphocytes % (auto) 17.5 % (10.0-50.0); Nucleated Red Blood Cells % 0.2 %; White Blood Cell 5.4 10^3/uL (4.4-10.8)
[2023-04-17 06:20] LABS: Eosinophils % (auto) 5.8 % (0.0-7.0); Hematocrit 35.4 % (41.0-53.0); Mean Corpuscular Hemoglobin 35.4 pg (28.0-32.0); Mean Corpuscular Hgb Conc. 35.3 g/dL (32.0-36.0); Mean Corpuscular Volume 100.3 fL (80.0-100.0); Monocytes # (auto) 0.5 10 ^3/uL (0-1.3); Monocytes % (auto) 8.4 % (0.0-12.0); Neutrophils # (auto) 3.6 10 ^3/uL (1.6-8.6); Neutrophils % (auto) 67.5 % (37.0-80.0); Red Blood Cells 3.53 10^6/uL (4.5-5.90); Red Cell Distribution Width 13.7 % (11.8-14.3)
[2023-04-17 06:31] LABS: Chloride 107 mmol/L (98-107); Sodium 136 mmol/L (136-145)
[2023-04-17 06:39] LABS: Alanine Aminotransferase 70 U/L (16-61); Albumin 2.8 g/dL (3.4-5.0); Alkaline Phosphatase 124 U/L (45-117); Amylase 35 U/L (25-115); Aspartate Aminotransferase 110 U/L (15-37); BUN/Creatinine Ratio 6.5 (10.0-20.0); Bilirubin, Total 1.8 mg/dL (0.2-1.0); Blood Urea Nitrogen 13 mg/dL (7-18); Calcium 7.6 mg/dL (8.5-10.1); Cholesterol 229 mg/dL (< 200); GFR African American 44 mL/min; GFR Non-African American 36 mL/min; Glucose 125 mg/dL (74-106); HDL Cholesterol 21 mg/dL (40-59); Lipase 1071 U/L (73-393); Magnesium 1.1 mg/dL (1.6-2.6); Total Protein 6.2 g/dL (6.4-8.2); Triglycerides 860 mg/dL (< 150)
[2023-04-17 09:15] LABS: Anion Gap 8 (5-15); Carbon Dioxide 21 mmol/L (21-32)
[2023-04-17] MEDS: LACTATED RINGER'S 1,000 ML IV SCH ×2 (09:22→21:10)
[2023-04-17] MEDS: MEROPENEM 500MG IVPB 50 ML IV SCH (09:25)
[2023-04-17] MEDS: PANTOPRAZOLE 40 MG/10 ML VIAL INJ IV SCH (09:26)
[2023-04-17] MEDS: MULTIPLE VITAMIN TAB PO SCH (09:26)
[2023-04-17] MEDS: THIAMINE HCL 100 MG TAB PO SCH (09:26)
[2023-04-17] MEDS: FOLIC ACID 1 MG TAB PO SCH (09:26)
[2023-04-17] MEDS: CHOLECALCIFEROL (VITD3) 2,000 UNIT CAP/TAB PO SCH (09:26)
[2023-04-17] MEDS: LOSARTAN POTASSIUM 25 MG TAB PO SCH (09:27)
[2023-04-17] MEDS: MORPHINE SULFATE INJ 2 MG/ml SYRG IV PRN ×2 (09:57→19:07)
[2023-04-17] MEDS ORDERED: POTASSIUM CHL 20 Meq TABLET PO ONE (17:00)
[2023-04-17] MEDS ORDERED: POTASSIUM CHLORIDE 40 MEQ, LIDOCAINE 1% (LOCAL ANESTH.) 4 ML in SODIUM CHL 0.9% 250 ML IV ONE (17:00)
[2023-04-17] MEDS: MEROPENEM 1GM IVPB 100 ML IV SCH (19:06)
[2023-04-17] MEDS ORDERED: ERGOCALCIFEROL 50,000 UNIT(1.25MG) CAP PO SCH (19:30)
[2023-04-17] MEDS: cloNIDine HCL 0.1 MG TAB PO PRN (20:13)
[2023-04-17] MEDS: LORazepam 2MG/ML-1ML VIAL IV PRN (20:13)
[2023-04-17] MEDS: MAGNESIUM SULFATE 1GM/100ML 100 ML IV SCH ×2 (21:26→23:07)
[2023-04-17] MEDS ORDERED: MAGNESIUM SULFATE 1GM/100ML 200 ML IV ONE (22:54)
[2023-04-18] MEDS: MAGNESIUM SULFATE 1GM/100ML 100 ML IV SCH (00:24)
[2023-04-18] MEDS: MORPHINE SULFATE INJ 2 MG/ml SYRG IV PRN ×5 (00:41→23:23)
[2023-04-18 05:00] VITALS: BP 180/97
[2023-04-18] MEDS: LORazepam 2MG/ML-1ML VIAL IV PRN (05:01)
[2023-04-18] MEDS: cloNIDine HCL 0.1 MG TAB PO PRN ×2 (05:01→21:02)
[2023-04-18 05:22] LABS: Protein, Urine 17.3 mg/dL (0.0-11.9)
[2023-04-18] MEDS: MEROPENEM 1GM IVPB 100 ML IV SCH ×2 (06:22→17:54)
[2023-04-18 07:06] LABS: Eosinophils # (auto) 0.4 10 ^3/uL (0-0.8); Hemoglobin 12.5 g/dL (13.5-17.5); Monocytes # (auto) 0.5 10 ^3/uL (0-1.3); Neutrophils # (auto) 4.1 10 ^3/uL (1.6-8.6); Red Cell Distribution Width 13.5 % (11.8-14.3)
[2023-04-18 07:10] LABS: Basophils # (auto) 0 10 ^3/uL (0-0.2); Basophils % (auto) 0.8 % (0.0-2.0); Eosinophils % (auto) 6.2 % (0.0-7.0); Hematocrit 35.6 % (41.0-53.0); Lymphocytes # (auto) 0.8 10 ^3/uL (0.4-5.4); Mean Corpuscular Hemoglobin 35.4 pg (28.0-32.0); Mean Corpuscular Hgb Conc. 35.1 g/dL (32.0-36.0); Monocytes % (auto) 8.6 % (0.0-12.0); Neutrophils % (auto) 70.4 % (37.0-80.0); Nucleated Red Blood Cells % 0.2 %; Red Blood Cells 3.52 10^6/uL (4.5-5.90); White Blood Cell 5.8 10^3/uL (4.4-10.8)
[2023-04-18 07:25] LABS: Albumin 2.8 g/dL (3.4-5.0); Calcium 7.9 mg/dL (8.5-10.1); Magnesium 1.8 mg/dL (1.6-2.6); Potassium 3.8 mmol/L (3.5-5.1)
[2023-04-18 07:30] LABS: Total Protein 6.7 g/dL (6.4-8.2)
[2023-04-18 09:00] VITALS: BP 131/60
[2023-04-18] MEDS: MULTIPLE VITAMIN TAB PO SCH (09:13)
[2023-04-18] MEDS: PANTOPRAZOLE 40 MG/10 ML VIAL INJ IV SCH (09:13)
[2023-04-18] MEDS: THIAMINE HCL 100 MG TAB PO SCH (09:13)
[2023-04-18] MEDS: FOLIC ACID 1 MG TAB PO SCH (09:13)
[2023-04-18] MEDS: LOSARTAN POTASSIUM 25 MG TAB PO SCH (09:15)
[2023-04-18 10:26] LABS: BUN/Creatinine Ratio 7.8 (10.0-20.0); Bilirubin, Total 1.5 mg/dL (0.2-1.0); Phosphorus 2.3 mg/dL (2.5-4.90)
[2023-04-18] MEDS: LACTATED RINGER'S 1,000 ML IV SCH ×2 (11:24→23:50)
[2023-04-18] MEDS ORDERED: POTASSIUM PHOSPHATE 26.4 MEQ in SODIUM CHL 0.9% 100 ML IV ONE (12:30)
[2023-04-18 13:00] VITALS: BP 144/77
[2023-04-18 17:00] VITALS: BP 160/68
[2023-04-18 22:00] VITALS: BP 170/91
[2023-04-19 05:00] VITALS: BP 152/84
[2023-04-19 06:01] LABS: Potassium 3.3 mmol/L (3.5-5.1)
[2023-04-19 06:13] LABS: Albumin 2.6 g/dL (3.4-5.0); BUN/Creatinine Ratio 9.8 (10.0-20.0); Bilirubin, Total 1.4 mg/dL (0.2-1.0); Magnesium 1.3 mg/dL (1.6-2.6); Phosphorus 3.1 mg/dL (2.5-4.90); Total Protein 6.6 g/dL (6.4-8.2)
[2023-04-19] MEDS: MEROPENEM 1GM IVPB 100 ML IV SCH ×2 (06:31→18:18)
[2023-04-19 07:00] LABS: Basophils # (auto) 0 10 ^3/uL (0-0.2); Eosinophils # (auto) 0.3 10 ^3/uL (0-0.8); Hematocrit 35.3 % (41.0-53.0); Lymphocytes # (auto) 0.9 10 ^3/uL (0.4-5.4); Monocytes # (auto) 0.6 10 ^3/uL (0-1.3); Neutrophils # (auto) 3.7 10 ^3/uL (1.6-8.6); Nucleated Red Blood Cells % 0.2 %; Red Cell Distribution Width 13.7 % (11.8-14.3)
[2023-04-19 07:01] LABS: Basophils % (auto) 0.8 % (0.0-2.0); Eosinophils % (auto) 5.8 % (0.0-7.0); Hemoglobin 12.4 g/dL (13.5-17.5); Lymphocytes % (auto) 16.1 % (10.0-50.0); Mean Corpuscular Hgb Conc. 35.2 g/dL (32.0-36.0); Mean Corpuscular Volume 102.1 fL (80.0-100.0); Neutrophils % (auto) 66.3 % (37.0-80.0); Red Blood Cells 3.46 10^6/uL (4.5-5.90); White Blood Cell 5.6 10^3/uL (4.4-10.8)
[2023-04-19 09:00] VITALS: BP 151/62
[2023-04-19] MEDS: PANTOPRAZOLE 40 MG/10 ML VIAL INJ IV SCH (09:41)
[2023-04-19] MEDS: MORPHINE SULFATE INJ 2 MG/ml SYRG IV PRN ×3 (09:43→23:39)
[2023-04-19] MEDS: THIAMINE HCL 100 MG TAB PO SCH (09:43)
[2023-04-19] MEDS: MULTIPLE VITAMIN TAB PO SCH (09:44)
[2023-04-19] MEDS: LOSARTAN POTASSIUM 25 MG TAB PO SCH (09:44)
[2023-04-19] MEDS: FOLIC ACID 1 MG TAB PO SCH (09:45)
[2023-04-19 12:59] VITALS: BP 179/99
[2023-04-19] MEDS: LACTATED RINGER'S 1,000 ML IV SCH (13:10)
[2023-04-19] MEDS ORDERED: POTASSIUM CHLORIDE 20 MEQ, LIDOCAINE 1% (LOCAL ANESTH.) 2 ML in SODIUM CHL 0.9% 100 ML IV ONE (13:45)
[2023-04-19 18:00] VITALS: BP 180/107
[2023-04-19] MEDS: cloNIDine HCL 0.1 MG TAB PO PRN ×2 (18:19→23:39)
[2023-04-19 22:03] VITALS: BP 173/83
[2023-04-19] MEDS ORDERED: POTASSIUM CHL 20MEQ/100ML 100 ML IV ONE (23:05)
[2023-04-20] MEDS: MEROPENEM 1GM IVPB 100 ML IV SCH ×4 (01:11→23:07)
[2023-04-20] MEDS: LACTATED RINGER'S 1,000 ML IV SCH ×3 (02:30→23:03)
[2023-04-20 05:00] VITALS: BP 161/73
[2023-04-20 06:41] LABS: Calcium 8.7 mg/dL (8.5-10.1); Potassium 3.3 mmol/L (3.5-5.1)
[2023-04-20 06:43] LABS: BUN/Creatinine Ratio 13.1 (10.0-20.0)
[2023-04-20] MEDS: MORPHINE SULFATE INJ 2 MG/ml SYRG IV PRN ×4 (06:45→20:28)
[2023-04-20] MEDS ORDERED: POTASSIUM EFFERVESENT TAB 25 MEQ PO ONE (08:00)
[2023-04-20 08:50] VITALS: BP 161/69
[2023-04-20] MEDS: PANTOPRAZOLE 40 MG/10 ML VIAL INJ IV SCH (09:05)
[2023-04-20] MEDS: MULTIPLE VITAMIN TAB PO SCH (09:06)
[2023-04-20] MEDS: LOSARTAN POTASSIUM 25 MG TAB PO SCH (09:06)
[2023-04-20] MEDS: FOLIC ACID 1 MG TAB PO SCH (09:06)
[2023-04-20] MEDS: NIFEdipine ER 30 MG TAB PO SCH (09:07)
[2023-04-20] MEDS: THIAMINE HCL 100 MG TAB PO SCH (09:08)
[2023-04-20 12:50] VITALS: BP 160/82
[2023-04-20 16:45] VITALS: BP 152/76
[2023-04-20 21:56] VITALS: BP 153/74
[2023-04-20] MEDS: LORazepam 2MG/ML-1ML VIAL IV PRN (23:01)
[2023-04-21 05:00] VITALS: BP 167/82
[2023-04-21] MEDS: LORazepam 2MG/ML-1ML VIAL IV PRN (06:03)
[2023-04-21] MEDS: cloNIDine HCL 0.1 MG TAB PO PRN (06:03)
[2023-04-21 06:27] LABS: Potassium 3.3 mmol/L (3.5-5.1)
[2023-04-21 06:34] LABS: BUN/Creatinine Ratio 16.7 (10.0-20.0); Calcium 8.6 mg/dL (8.5-10.1)
[2023-04-21 09:12] VITALS: BP 166/69
[2023-04-21] MEDS: MEROPENEM 1GM IVPB 100 ML IV SCH ×2 (09:17→17:43)
[2023-04-21] MEDS: THIAMINE HCL 100 MG TAB PO SCH (09:19)
[2023-04-21] MEDS: PANTOPRAZOLE 40 MG/10 ML VIAL INJ IV SCH (09:19)
[2023-04-21] MEDS: LOSARTAN POTASSIUM 25 MG TAB PO SCH (09:19)
[2023-04-21] MEDS: NIFEdipine ER 30 MG TAB PO SCH (09:19)
[2023-04-21] MEDS: FOLIC ACID 1 MG TAB PO SCH (09:19)
[2023-04-21] MEDS: MULTIPLE VITAMIN TAB PO SCH (09:19)
[2023-04-21] MEDS ORDERED: POTASSIUM CHL 20 Meq TABLET PO ONE (09:30)
[2023-04-21] MEDS: MORPHINE SULFATE INJ 2 MG/ml SYRG IV PRN (09:36)
[2023-04-21] MEDS ORDERED: NIFEdipine ER 30 MG TAB PO SCH (10:00)
[2023-04-21 12:24] VITALS: BP 181/98
[2023-04-21] MEDS: LACTATED RINGER'S 1,000 ML IV SCH (12:27)
[2023-04-21] MEDS ORDERED: FOLI1TAB6 PO (14:54)
[2023-04-21] MEDS ORDERED: ERGO1CAP23 PO (14:54)
[2023-04-21] MEDS ORDERED: THIA100T10 PO (14:54)
[2023-04-21] MEDS ORDERED: MULTTAB99 PO (14:54)
[2023-04-21] MEDS ORDERED: NIFE1TAB30 PO (14:54)
[2023-04-21 16:40] VITALS: BP 158/79
[2023-04-21 16:53] VITALS: BP 181/98
== END 2023-04-21 17:52 | disposition home or self-care (01) | DRG 438 ==
LOC: ER 14:30 → TELE 19:45 → TELE-WESTW 04-16 11:20
PROVIDERS: ADMIT Nurse Practitioner Family; ATTEND Internal Medicine
DX: K85.20 Alcohol induced acute pancreatitis without necrosis or infection (principal); N17.0 Acute kidney failure with tubular necrosis; Z68.41 Body mass index [BMI] 40.0-44.9, adult; K86.1 Other chronic pancreatitis; E66.01 Morbid (severe) obesity due to excess calories; I10 Essential (primary) hypertension; E87.6 Hypokalemia; E78.5 Hyperlipidemia, unspecified; F20.9 Schizophrenia, unspecified; F10.10 Alcohol abuse, uncomplicated; R73.03 Prediabetes; F31.9 Bipolar disorder, unspecified; R00.0 Tachycardia, unspecified; K76.0 Fatty (change of) liver, not elsewhere classified; Z81.8 Family history of other mental and behavioral disorders; Z82.49 Family history of ischemic heart disease and other diseases of the circulatory system; Z83.3 Family history of diabetes mellitus; Z88.2 Allergy status to sulfonamides; Z71.3 Dietary counseling and surveillance
CPT/HCPCS: 36415; 71045; 74176; 76705; 80048; 80053; 80061; 80307; 81001; 82150; 82248; 82306; 82570; 83036; 83690; 83735; 83935; 84100; 84156; 84300; 84443; 84484; 85025; 85610; 85730; 93005; 93886; 96374; 96375; C9113; G0378; J2001; J2185; J2405; J3480

== ENCOUNTER → 2023-07-14 | Outpatient (CLI) | payer MEDICARE, MEDICAID ==
[~2023-07-14] MED LIST changes: +ERGO1CAP23 PO; +FOLI-119 PO; +LOSA25TA15 PO; -LOSA25TA38 PO; +MULTTAB99 PO; +NIFE1TAB30 PO; +THIA100T10 PO
== END | disposition home or self-care (01) ==
LOC: XYW 15:08
PROVIDERS: ATTEND Internal Medicine
DX: R06.02 Shortness of breath (principal)
CPT/HCPCS: 93306

== ENCOUNTER → 2023-10-08 | Outpatient (CLI) | payer MEDICARE, MEDICAID ==
[2023-10-08 08:58] LABS: Alanine Aminotransferase 66 U/L (7-40); Albumin 4.5 g/dL (3.2-4.8); Alkaline Phosphatase 124 U/L (46-116); Anion Gap 14 (5-15); Aspartate Aminotransferase 79 U/L (13-40); BUN/Creatinine Ratio 10.4 (10.0-20.0); Blood Urea Nitrogen 13 mg/dL (9-23); Calcium 9.3 mg/dL (8.5-10.1); Carbon Dioxide 22 mmol/L (20-30); Chloride 100 mmol/L (98-107); Glucose 147 mg/dL (74-106); LDL Cholesterol 187 mg/dL (< 100); Potassium 3.1 mmol/L (3.5-5.1); Sodium 136 mmol/L (136-145); Triglycerides 383 mg/dL (< 150)
[2023-10-08 08:59] LABS: Bilirubin, Total 1.9 mg/dL (0.2-1.0); Cholesterol 274 mg/dL (< 200); HDL Cholesterol 51 mg/dL (40-59); Total Protein 7.6 g/dL (5.7-8.2)
== END | disposition home or self-care (01) ==
LOC: LAB 08:14
PROVIDERS: ATTEND Internal Medicine
DX: E66.9 Obesity, unspecified (principal); R73.03 Prediabetes; R06.02 Shortness of breath
CPT/HCPCS: 36415; 80053; 80061

== ENCOUNTER → 2023-11-05 | Outpatient (CLI) | payer MEDICARE, MEDICAID ==
[2023-11-05 10:31] LABS: Alanine Aminotransferase 75 U/L (7-40); Albumin 4.2 g/dL (3.2-4.8); Alkaline Phosphatase 116 U/L (46-116); Anion Gap 10 (5-15); Aspartate Aminotransferase 57 U/L (13-40); BUN/Creatinine Ratio 10.1 (10.0-20.0); Bilirubin, Total 0.7 mg/dL (0.2-1.0); Blood Urea Nitrogen 8 mg/dL (9-23); Calcium 9.6 mg/dL (8.5-10.1); Chloride 103 mmol/L (98-107); Glucose 128 mg/dL (74-106); Potassium 3.7 mmol/L (3.5-5.1); Sodium 135 mmol/L (136-145); Total Protein 7.2 g/dL (5.7-8.2)
[2023-11-05 12:13] LABS: Carbon Dioxide 21 mmol/L (20-30)
== END | disposition home or self-care (01) ==
LOC: LAB 08:10
PROVIDERS: ATTEND Internal Medicine
DX: K76.9 Liver disease, unspecified (principal); R79.89 Other specified abnormal findings of blood chemistry
CPT/HCPCS: 36415; 80053

== ENCOUNTER 2023-12-22 09:10 | Inpatient (IN) | payer MEDICARE, MEDICAID ==
[~2023-12-22] VITALS: Ht 182.9 cm; Wt 138.0 kg
[2023-12-22 09:41] LABS: Urine Epithelial Cast None Seen /hpf (<5)
[2023-12-22 10:01] LABS: Basophils # (auto) 0 10 ^3/uL (0-0.2); Eosinophils # (auto) 0.3 10 ^3/uL (0-0.8); Eosinophils % (auto) 4.2 % (0.0-7.0); Hemoglobin 13.6 g/dL (13.5-17.5); Lymphocytes # (auto) 0.7 10 ^3/uL (0.4-5.4); Nucleated Red Blood Cells % 0.1 %
[2023-12-22 10:04] LABS: Basophils % (auto) 0.3 % (0.0-2.0); Hematocrit 38.1 % (41.0-53.0); Lymphocytes % (auto) 9.9 % (10.0-50.0); Mean Corpuscular Hemoglobin 35.1 pg (28.0-32.0); Mean Corpuscular Hgb Conc. 35.8 g/dL (32.0-36.0); Mean Corpuscular Volume 98.1 fL (80.0-100.0); Monocytes # (auto) 0.4 10 ^3/uL (0-1.3); Monocytes % (auto) 5.9 % (0.0-12.0); Neutrophils # (auto) 5.8 10 ^3/uL (1.6-8.6); Neutrophils % (auto) 79.7 % (37.0-80.0); Red Blood Cells 3.88 10^6/uL (4.5-5.90); Red Cell Distribution Width 13.8 % (11.8-14.3); White Blood Cell 7.3 10^3/uL (4.4-10.8)
[2023-12-22 10:20] LABS: Urine Bacteria FEW /hpf (None Seen); Urine Blood Negative /uL (Negative); Urine Clarity Clear (Clear); Urine Color Yellow (Yellow); Urine Protein, UAD 1+ (Negative); Urine Specific Gravity 1.017 (1.001-1.035); Urine WBC 14 /hpf (0 - 3)
[2023-12-22 10:32] LABS: Amphetamine Screen, Urine Neg (NEGATIVE); Barbiturate Scree,Urine Neg (NEGATIVE); Benzodiazephine Screen, Urine Neg (NEGATIVE); Cannabinoid Screen, Urine Pos (NEGATIVE); Cocaine Screen, Urine Neg (NEGATIVE); Opiate Scree,Urine Neg (NEGATIVE); Phencyclidine Screen, Urine Neg (NEGATIVE)
[2023-12-22 10:35] LABS: Alanine Aminotransferase 99 U/L (7-40); Alkaline Phosphatase 145 U/L (46-116); Anion Gap 12 (5-15); Aspartate Aminotransferase 163 U/L (13-40); BUN/Creatinine Ratio 7.8 (10.0-20.0); Blood Urea Nitrogen 23 mg/dL (9-23); Calcium 8.5 mg/dL (8.7-10.4); Carbon Dioxide 23 mmol/L (20-30); Chloride 100 mmol/L (98-107); Glucose 116 mg/dL (74-106); Lipase 149 U/L (12-53); Magnesium 1.1 mg/dL (1.6-2.6); Potassium 3.3 mmol/L (3.5-5.1); Sodium 135 mmol/L (136-145)
[2023-12-22 10:36] LABS: Bilirubin, Total 3.6 mg/dL (0.2-1.0)
[2023-12-22 11:52] LABS: Blood Alcohol < 3.0 mg/dL (<10)
[2023-12-22] MEDS ORDERED: cefTRIAXone 1GM/50ML D5W 50 ML IV ONE (13:15)
[2023-12-22] MEDS ORDERED: HYDROcodone-ACET 5/325MG TAB PO PRN (13:15)
[2023-12-22] MEDS ORDERED: DOCUSATE SOD 100 MG CAP PO PRN (13:15)
[2023-12-22] MEDS ORDERED: ONDANSETRON HCL 4 MG/2 ML VIAL IV PRN ×2 (13:15→18:00)
[2023-12-22] MEDS ORDERED: ACETAMINOPHEN 325 MG TAB PO PRN (13:15)
[2023-12-22] MEDS ORDERED: POTASSIUM EFFERVESENT TAB 25 MEQ PO ONE (13:15)
[2023-12-22] MEDS ORDERED: HYDROcodone-ACET 5/325MG TAB PO ONE (13:15)
[2023-12-22] MEDS ORDERED: NITROGLYCERIN 0.4 MG SL TAB SL PRN (13:15)
[2023-12-22] MEDS ORDERED: MORPHINE SULFATE INJ 2 MG/ml SYRG IV PRN (13:15)
[2023-12-22] MEDS ORDERED: ONDANSETRON ODT 4 MG TAB PO ONE (13:15)
[2023-12-22] MEDS ORDERED: QUET200T86 PO (13:42)
[2023-12-22] MEDS ORDERED: LOSA100T58 PO (13:42)
[2023-12-22] MEDS ORDERED: FENO160T PO (13:42)
[2023-12-22] MEDS ORDERED: APIX5TAB PO (13:42)
[2023-12-22] MEDS: SODIUM CHLORIDE 0.9% 1,000 ML IV SCH ×2 (14:09→22:12)
[2023-12-22] MEDS: MORPHINE SULFATE INJ 2 MG/ml SYRG IV PRN ×2 (16:51→22:54)
[2023-12-22] MEDS: NEOMYCIN-POLYM-GRAM OPTH(EYE) SOL 10ML EACHEYE SCH ×3 (16:54→22:18)
[2023-12-22] MEDS: APIXABAN 5 MG TAB PO SCH (22:32)
[2023-12-22] MEDS: QUETIAPINE FUMARATE 200 MG PO SCH (22:33)
[2023-12-22 23:30] VITALS: PULSE 107; RESP 18; O2SAT 94
[2023-12-23] MEDS: MAGNESIUM SULFATE 1GM/100ML 100 ML IV SCH ×2 (00:59→03:56)
[2023-12-23] MEDS: NEOMYCIN-POLYM-GRAM OPTH(EYE) SOL 10ML EACHEYE SCH ×6 (02:10→21:41)
[2023-12-23 02:42] LABS: Rapid Strep A Screen-Throat Negative
[2023-12-23 02:48] LABS: COVID19 ANTIGEN SOFIA FIA NEGATIVE (NEGATIVE)
[2023-12-23] MEDS ORDERED: MAGNESIUM SULFATE 1GM/100ML 100 ML IV ONE (03:52)
[2023-12-23] MEDS: SODIUM CHLORIDE 0.9% 1,000 ML IV SCH ×3 (05:54→22:35)
[2023-12-23] MEDS: MORPHINE SULFATE INJ 2 MG/ml SYRG IV PRN ×3 (05:56→20:37)
[2023-12-23 06:35] LABS: Basophils # (auto) 0 10 ^3/uL (0-0.2); Eosinophils # (auto) 0.3 10 ^3/uL (0-0.8); Monocytes % (auto) 7.9 % (0.0-12.0)
[2023-12-23 06:40] LABS: Basophils % (auto) 0.4 % (0.0-2.0); Eosinophils % (auto) 4.3 % (0.0-7.0); Hematocrit 35.4 % (41.0-53.0); Hemoglobin 12.6 g/dL (13.5-17.5); Lymphocytes # (auto) 1.2 10 ^3/uL (0.4-5.4); Mean Corpuscular Hgb Conc. 35.5 g/dL (32.0-36.0); Mean Corpuscular Volume 98.6 fL (80.0-100.0); Monocytes # (auto) 0.5 10 ^3/uL (0-1.3); Neutrophils # (auto) 4.8 10 ^3/uL (1.6-8.6); Neutrophils % (auto) 70.4 % (37.0-80.0); Nucleated Red Blood Cells % 0.1 %; Red Blood Cells 3.59 10^6/uL (4.5-5.90); Red Cell Distribution Width 13.6 % (11.8-14.3); White Blood Cell 6.9 10^3/uL (4.4-10.8)
[2023-12-23 06:45] LABS: Alanine Aminotransferase 80 U/L (7-40); Albumin 3.9 g/dL (3.2-4.8); Alkaline Phosphatase 144 U/L (46-116); Anion Gap 13 (5-15); Aspartate Aminotransferase 126 U/L (13-40); BUN/Creatinine Ratio 8.5 (10.0-20.0); Bilirubin, Total 1.9 mg/dL (0.2-1.0); Blood Urea Nitrogen 25 mg/dL (9-23); Calcium 8.8 mg/dL (8.5-10.1); Carbon Dioxide 22 mmol/L (20-30); Chloride 101 mmol/L (98-107); Glucose 108 mg/dL (74-106); Potassium 2.9 mmol/L (3.5-5.1); Sodium 136 mmol/L (136-145); Total Protein 7.2 g/dL (5.7-8.2)
[2023-12-23] MEDS: cefTRIAXone 1GM/50ML D5W 50 ML IV SCH (09:25)
[2023-12-23] MEDS: Fenofibrate 160 MG PO SCH (10:00)
[2023-12-23 10:25] VITALS: BP 147/91; PULSE 99; RESP 22; TEMP 97.4; O2SAT 95
[2023-12-23] MEDS ORDERED: POTASSIUM EFFERVESENT TAB 25 MEQ PO ONE (10:45)
[2023-12-23] MEDS: FOLIC ACID 1 MG TAB PO SCH (11:26)
[2023-12-23] MEDS: PANTOPRAZOLE 40 MG TAB PO SCH (11:26)
[2023-12-23] MEDS: MULTIPLE VITAMIN TAB PO SCH (11:26)
[2023-12-23] MEDS: THIAMINE HCL 100 MG TAB PO SCH (11:26)
[2023-12-23] MEDS: APIXABAN 5 MG TAB PO SCH ×2 (11:26→20:38)
[2023-12-23] MEDS: NIFEdipine ER 30 MG TAB PO SCH (11:27)
[2023-12-23 13:00] VITALS: BP 144/96; PULSE 97; RESP 20; TEMP 97.9; O2SAT 94
[2023-12-23 17:00] VITALS: BP 146/83; PULSE 104; RESP 22; TEMP 97.7; O2SAT 94
[2023-12-23] MEDS: QUETIAPINE FUMARATE 200 MG PO SCH (18:00)
[2023-12-23 20:00] VITALS: PULSE 101
[2023-12-23 20:30] VITALS: PULSE 105; RESP 21; O2SAT 94
[2023-12-23 22:00] VITALS: BP 143/86; PULSE 100; RESP 20; TEMP 98.6; O2SAT 96
[2023-12-24] MEDS: NEOMYCIN-POLYM-GRAM OPTH(EYE) SOL 10ML EACHEYE SCH ×6 (02:36→21:48)
[2023-12-24] MEDS: SODIUM CHLORIDE 0.9% 1,000 ML IV SCH (04:59)
[2023-12-24] MEDS: MORPHINE SULFATE INJ 2 MG/ml SYRG IV PRN ×2 (04:59→12:28)
[2023-12-24 05:00] VITALS: BP 160/89; PULSE 80; RESP 20; TEMP 98.6; O2SAT 93
[2023-12-24 06:48] LABS: Basophils # (auto) 0 10 ^3/uL (0-0.2); Eosinophils # (auto) 0.3 10 ^3/uL (0-0.8); Monocytes # (auto) 0.7 10 ^3/uL (0-1.3); Neutrophils # (auto) 4.4 10 ^3/uL (1.6-8.6); Nucleated Red Blood Cells % 0.1 %; Red Blood Cells 3.41 10^6/uL (4.5-5.90); White Blood Cell 6.4 10^3/uL (4.4-10.8)
[2023-12-24 06:50] LABS: Basophils % (auto) 0.6 % (0.0-2.0); Hemoglobin 11.9 g/dL (13.5-17.5); Lymphocytes % (auto) 16.3 % (10.0-50.0); Mean Corpuscular Hemoglobin 34.8 pg (28.0-32.0); Mean Corpuscular Hgb Conc. 34.8 g/dL (32.0-36.0); Monocytes % (auto) 10.4 % (0.0-12.0); Neutrophils % (auto) 67.7 % (37.0-80.0); Red Cell Distribution Width 13.6 % (11.8-14.3)
[2023-12-24 06:55] LABS: Alanine Aminotransferase 66 U/L (7-40); Alkaline Phosphatase 122 U/L (46-116); Anion Gap 9 (5-15); BUN/Creatinine Ratio 12.6 (10.0-20.0); Blood Urea Nitrogen 23 mg/dL (9-23); Carbon Dioxide 24 mmol/L (20-30); Chloride 103 mmol/L (98-107); Glucose 91 mg/dL (74-106); Lipase 95 U/L (12-53); Potassium 3.1 mmol/L (3.5-5.1); Sodium 136 mmol/L (136-145)
[2023-12-24 06:57] LABS: Albumin 3.7 g/dL (3.2-4.8); Aspartate Aminotransferase 80 U/L (13-40); Bilirubin, Total 1.1 mg/dL (0.2-1.0); Total Protein 6.5 g/dL (5.7-8.2)
[2023-12-24 08:00] VITALS: PULSE 94
[2023-12-24] MEDS ORDERED: POTASSIUM EFFERVESENT TAB 25 MEQ PO ONE (08:00)
[2023-12-24 08:48] VITALS: BP 151/82; PULSE 99; RESP 20; TEMP 98; O2SAT 94
[2023-12-24] MEDS: MULTIPLE VITAMIN TAB PO SCH (09:22)
[2023-12-24] MEDS: PANTOPRAZOLE 40 MG TAB PO SCH (09:22)
[2023-12-24] MEDS: FOLIC ACID 1 MG TAB PO SCH (09:22)
[2023-12-24] MEDS: THIAMINE HCL 100 MG TAB PO SCH (09:22)
[2023-12-24] MEDS: APIXABAN 5 MG TAB PO SCH ×2 (09:22→21:48)
[2023-12-24] MEDS: NIFEdipine ER 30 MG TAB PO SCH (09:25)
[2023-12-24] MEDS: cefTRIAXone 1GM/50ML D5W 50 ML IV SCH (09:25)
[2023-12-24] MEDS: Fenofibrate 160 MG PO SCH (09:30)
[2023-12-24 12:37] VITALS: BP 141/89; PULSE 103; RESP 20; TEMP 98.9; O2SAT 94
[2023-12-24 17:00] VITALS: BP 139/85; PULSE 96; RESP 20; TEMP 98.2; O2SAT 93
[2023-12-24] MEDS: QUETIAPINE FUMARATE 200 MG PO SCH (17:50)
[2023-12-24] MEDS: NYSTATIN (MOUTH-THROAT) 500,000 UNITS/5 ML SUSP MT SCH (21:48)
[2023-12-24 22:00] VITALS: BP 146/80; PULSE 107; RESP 20; TEMP 99; O2SAT 97
[2023-12-25] MEDS: MORPHINE SULFATE INJ 2 MG/ml SYRG IV PRN (00:38)
[2023-12-25] MEDS: NEOMYCIN-POLYM-GRAM OPTH(EYE) SOL 10ML EACHEYE SCH ×3 (02:52→10:05)
[2023-12-25 05:00] VITALS: BP 155/77; PULSE 99; RESP 20; TEMP 98.6; O2SAT 98
[2023-12-25 06:05] LABS: Mean Corpuscular Hgb Conc. 35.1 g/dL (32.0-36.0); White Blood Cell 6.7 10^3/uL (4.4-10.8)
[2023-12-25 06:09] LABS: Hematocrit 34.8 % (41.0-53.0); Hemoglobin 12.2 g/dL (13.5-17.5); Mean Corpuscular Hemoglobin 34.5 pg (28.0-32.0); Mean Corpuscular Volume 98.3 fL (80.0-100.0); Red Blood Cells 3.54 10^6/uL (4.5-5.90); Red Cell Distribution Width 14.1 % (11.8-14.3)
[2023-12-25 06:17] LABS: Basophils % (manual) 0 (0.0-2.0); Blast Cells 0; Metamyelocytes % 0; Myelocytes % 0; Promyelocytes % 0; Reactive Lymphocytes 0
[2023-12-25 06:19] LABS: Alanine Aminotransferase 68 U/L (7-40); Albumin 3.9 g/dL (3.2-4.8); Alkaline Phosphatase 130 U/L (46-116); Anion Gap 9 (5-15); Aspartate Aminotransferase 73 U/L (13-40); BUN/Creatinine Ratio 13.2 (10.0-20.0); Blood Urea Nitrogen 17 mg/dL (9-23); Calcium 8.7 mg/dL (8.7-10.4); Carbon Dioxide 26 mmol/L (20-30); Chloride 103 mmol/L (98-107); Glucose 87 mg/dL (74-106); Lipase 126 U/L (12-53); Magnesium 1.1 mg/dL (1.6-2.6); Sodium 138 mmol/L (136-145)
[2023-12-25 07:44] LABS: Band Neutrophils % (manual) 2; Eosinophils % (manual) 3 (0-7); Lymphocytes % (manual) 19 (10.0-50.0); Monocytes % (manual) 14 (0-12)
[2023-12-25 07:45] LABS: Platelet Estimate Decreased
[2023-12-25 07:46] LABS: RBC Morphology Normal
[2023-12-25 08:00] VITALS: BP 155/81; PULSE 106; RESP 20; TEMP 98; O2SAT 94
[2023-12-25] MEDS ORDERED: POTASSIUM EFFERVESENT TAB 25 MEQ PO ONE (08:30)
[2023-12-25 09:00] VITALS: BP 155/81; PULSE 106; RESP 20; TEMP 98; O2SAT 94
[2023-12-25] MEDS ORDERED: MAGNESIUM SULFATE 1GM/100ML 100 ML IV SCH (09:00)
[2023-12-25] MEDS ORDERED: NYS5LQ MT (09:53)
[2023-12-25] MEDS: cefTRIAXone 1GM/50ML D5W 50 ML IV SCH (09:57)
[2023-12-25] MEDS: THIAMINE HCL 100 MG TAB PO SCH (09:58)
[2023-12-25] MEDS: Fenofibrate 160 MG PO SCH (09:58)
[2023-12-25] MEDS: NYSTATIN (MOUTH-THROAT) 500,000 UNITS/5 ML SUSP MT SCH (09:58)
[2023-12-25] MEDS: MULTIPLE VITAMIN TAB PO SCH (09:58)
[2023-12-25] MEDS: FOLIC ACID 1 MG TAB PO SCH (09:58)
[2023-12-25] MEDS: NIFEdipine ER 30 MG TAB PO SCH (09:58)
[2023-12-25] MEDS: PANTOPRAZOLE 40 MG TAB PO SCH (09:58)
[2023-12-25] MEDS: APIXABAN 5 MG TAB PO SCH (09:58)
[2023-12-25 12:22] VITALS: BP 155/81; PULSE 106; RESP 20; TEMP 98; O2SAT 94
== END 2023-12-25 16:23 | disposition home or self-care (01) | DRG 438 ==
LOC: ER 09:10 → TELE-WESTW 13:40 → TELE 13:40 → TELE-WESTW 12-23 09:33 → WEST WING 12-24 11:38
PROVIDERS: ADMIT Internal Medicine Pulmonary Disease; ATTEND Internal Medicine Pulmonary Disease
DX: K85.20 Alcohol induced acute pancreatitis without necrosis or infection (principal); N17.0 Acute kidney failure with tubular necrosis; N30.00 Acute cystitis without hematuria; Z68.41 Body mass index [BMI] 40.0-44.9, adult; K86.0 Alcohol-induced chronic pancreatitis; E66.01 Morbid (severe) obesity due to excess calories; E78.5 Hyperlipidemia, unspecified; F10.10 Alcohol abuse, uncomplicated; Z20.822 Contact with and (suspected) exposure to COVID-19; F20.9 Schizophrenia, unspecified; F31.9 Bipolar disorder, unspecified; I10 Essential (primary) hypertension; K76.0 Fatty (change of) liver, not elsewhere classified; R74.01 Elevation of levels of liver transaminase levels; E87.6 Hypokalemia; R00.0 Tachycardia, unspecified; Z79.01 Long term (current) use of anticoagulants; Z86.718 Personal history of other venous thrombosis and embolism; Z86.711 Personal history of pulmonary embolism; Z82.49 Family history of ischemic heart disease and other diseases of the circulatory system; Z88.2 Allergy status to sulfonamides
CPT/HCPCS: 36415; 71045; 74176; 78226; 80053; 80307; 80320; 81001; 82140; 83690; 83735; 83880; 84484; 85007; 85025; 85027; 85379; 87070; 87086; 87426; 87880; 93005; 93306; 93970; 96365; G0378; J2405; Q0162

== ENCOUNTER 2024-03-30 09:05 | Inpatient (IN) | payer MEDICARE, MEDICAID ==
[~2024-03-30] VITALS: Ht 190.5 cm; Wt 141.2 kg
[~2024-03-30 09:05] MED LIST changes: +APIX5TAB PO; +FENO160T PO; +LOSA-533 PO; +LOSA-535 PO; -LOSA25TA15 PO; +NYS5LQ MT; +QUET200T86 PO
[2024-03-30 10:14] VITALS: PULSE 107; RESP 14; O2SAT 97
[2024-03-30] MEDS: THIAMINE 100mg/ml INJ (200mg/2ml VIAL) IV ONE (10:15)
[2024-03-30] MEDS: ONDANSETRON HCL 4 MG/2 ML VIAL IV ONE (10:15)
[2024-03-30] MEDS: SODIUM CHLORIDE 0.9% 1,000 ML IV ONE ×2 (10:15→10:19)
[2024-03-30] MEDS: MORPHINE SULFATE INJ 2 MG/ml SYRG IV ONE (10:19)
[2024-03-30 10:51] LABS: Basophils # (auto) 0.1 10 ^3/uL (0-0.2); Eosinophils # (auto) 0 10 ^3/uL (0-0.8); Eosinophils % (auto) 0.2 % (0.0-7.0); Hematocrit 38.8 % (41.0-53.0); Hemoglobin 13.7 g/dL (13.5-17.5); Lymphocytes # (auto) 0.7 10 ^3/uL (0.4-5.4); Mean Corpuscular Hgb Conc. 35.4 g/dL (32.0-36.0); Mean Corpuscular Volume 93.2 fL (80.0-100.0); Monocytes # (auto) 0.6 10 ^3/uL (0-1.3); Monocytes % (auto) 6.1 % (0.0-12.0); Neutrophils % (auto) 85.7 % (37.0-80.0); Nucleated Red Blood Cells % 0.1 %; Red Blood Cells 4.17 10^6/uL (4.5-5.90); Red Cell Distribution Width 14.8 % (11.8-14.3); White Blood Cell 9.3 10^3/uL (4.4-10.8)
[2024-03-30 11:40] LABS: Alanine Aminotransferase 81 U/L (7-40); Albumin 4.2 g/dL (3.2-4.8); Alkaline Phosphatase 140 U/L (46-116); Anion Gap 11 (5-15); Aspartate Aminotransferase 68 U/L (13-40); BUN/Creatinine Ratio 11.2 (10.0-20.0); Blood Urea Nitrogen 10 mg/dL (9-23); Calcium 10.2 mg/dL (8.7-10.4); Carbon Dioxide 25 mmol/L (20-30); Chloride 102 mmol/L (98-107); Glucose 112 mg/dL (74-106); Potassium 3.7 mmol/L (3.5-5.1); Sodium 138 mmol/L (136-145)
[2024-03-30 11:41] LABS: Total Protein 6.9 g/dL (5.7-8.2)
[2024-03-30] MEDS: SODIUM CHLORIDE 0.9% 1,000 ML IV SCH (12:00)
[2024-03-30] MEDS ORDERED: DOCUSATE SOD 100 MG CAP PO PRN (12:00)
[2024-03-30] MEDS: ERGOCALCIFEROL 50,000 UNIT(1.25MG) CAP PO SCH (12:30)
[2024-03-30] MEDS: chlordiazePOXIDE HCL 25 MG CAP PO SCH (12:30)
[2024-03-30] MEDS: NIFEdipine ER 30 MG TAB PO SCH (12:35)
[2024-03-30 16:26] LABS: Blood Alcohol < 3.0 mg/dL (<10)
[2024-03-30] MEDS: QUETIAPINE FUMARATE 200 MG PO SCH (18:00)
[2024-03-30] MEDS: ONDANSETRON HCL 4 MG/2 ML VIAL IV PRN (18:08)
[2024-03-30] MEDS: MORPHINE SULFATE INJ 2 MG/ml SYRG IV PRN (18:11)
[2024-03-30] MEDS: FOLIC ACID 1 MG, MAGNESIUM SULF SDV 50% 8 MEQ, MULTIPLE VITAMIN 10 ML, THIAMINE INJ 100... INJ SCH (18:13)
[2024-03-30 20:50] VITALS: PULSE 105; RESP 21; O2SAT 94
[2024-03-30 21:40] VITALS: BP 156/90; PULSE 97; RESP 20; TEMP 97.9
[2024-03-30 22:40] VITALS: BP 156/90; PULSE 97; RESP 20; TEMP 97.9; O2SAT 94
[2024-03-31] VITALS (8 sets, daily range): BP systolic 132–181; BP diastolic 82–92; PULSE 80–96; RESP 16–20; TEMP 96.8–98.7; O2SAT 93–97
[2024-03-31] MEDS: cloNIDine HCL 0.1 MG TAB PO ONE (04:21)
[2024-03-31 07:00] LABS: Basophils # (auto) 0.1 10 ^3/uL (0-0.2); Basophils % (auto) 1.3 % (0.0-2.0); Eosinophils # (auto) 0.2 10 ^3/uL (0-0.8); Eosinophils % (auto) 3.5 % (0.0-7.0); Hematocrit 36.6 % (41.0-53.0); Hemoglobin 12.9 g/dL (13.5-17.5); Lymphocytes # (auto) 1.4 10 ^3/uL (0.4-5.4); Lymphocytes % (auto) 23.9 % (10.0-50.0); Mean Corpuscular Hemoglobin 33.2 pg (28.0-32.0); Mean Corpuscular Hgb Conc. 35.2 g/dL (32.0-36.0); Mean Corpuscular Volume 94.2 fL (80.0-100.0); Monocytes # (auto) 0.5 10 ^3/uL (0-1.3); Monocytes % (auto) 7.9 % (0.0-12.0); Neutrophils # (auto) 3.7 10 ^3/uL (1.6-8.6); Neutrophils % (auto) 63.4 % (37.0-80.0); Nucleated Red Blood Cells % 0.2 %; Red Blood Cells 3.89 10^6/uL (4.5-5.90); Red Cell Distribution Width 14.4 % (11.8-14.3); White Blood Cell 5.8 10^3/uL (4.4-10.8)
[2024-03-31 07:03] LABS: Alanine Aminotransferase 61 U/L (7-40); Alkaline Phosphatase 118 U/L (46-116); Anion Gap 9 (5-15); Aspartate Aminotransferase 69 U/L (13-40); BUN/Creatinine Ratio 8.2 (10.0-20.0); Blood Urea Nitrogen 7 mg/dL (9-23); Calcium 9.3 mg/dL (8.5-10.1); Carbon Dioxide 27 mmol/L (20-30); Chloride 104 mmol/L (98-107); Glucose 105 mg/dL (74-106); Potassium 2.9 mmol/L (3.5-5.1); Sodium 140 mmol/L (136-145)
[2024-03-31 07:04] LABS: Albumin 3.8 g/dL (3.2-4.8); Total Protein 6.4 g/dL (5.7-8.2)
[2024-03-31 07:05] LABS: Bilirubin, Total 0.8 mg/dL (0.2-1.0)
[2024-03-31] MEDS: chlordiazePOXIDE HCL 25 MG CAP PO SCH (08:32)
[2024-03-31] MEDS: LOSARTAN POTASSIUM 25 MG TAB PO SCH (08:32)
[2024-03-31] MEDS: CHOLECALCIFEROL (VITD3) 1,000UNIT=25mCg TAB PO SCH (08:33)
[2024-03-31] MEDS: PANTOPRAZOLE 40 MG TAB PO SCH (08:33)
[2024-03-31] MEDS ORDERED: PATIENTS OWN MEDICATION (Losartan Potassium 1 TAB) PO SCH (10:00)
[2024-03-31] MEDS: HYDROcodone-ACET 5/325MG TAB PO PRN (12:09)
[2024-03-31] MEDS: hydrALAZINE HCL 20 MG/ML VL IV PRN (12:10)
[2024-03-31] MEDS: SODIUM CHLORIDE 0.9% 1,000 ML IV SCH (12:11)
[2024-03-31] MEDS: LIDOCAINE 5% TOPICAL PATCH TOP ONE (12:54)
[2024-03-31] MEDS: POTASSIUM CHLORIDE 40 MEQ, LIDOCAINE 1% (LOCAL ANESTH.) 4 ML in SODIUM CHL 0.9% 250 ML IV ONE (12:55)
[2024-04-01 01:00] VITALS: BP 125/80; PULSE 79; RESP 18; TEMP 98.4; O2SAT 96
[2024-04-01 05:53] LABS: Basophils # (auto) 0.1 10 ^3/uL (0-0.2); Basophils % (auto) 0.6 % (0.0-2.0); Eosinophils # (auto) 0.3 10 ^3/uL (0-0.8); Eosinophils % (auto) 3.4 % (0.0-7.0); Hematocrit 42.1 % (41.0-53.0); Lymphocytes # (auto) 1.5 10 ^3/uL (0.4-5.4); Mean Corpuscular Hemoglobin 33.6 pg (28.0-32.0); Mean Corpuscular Hgb Conc. 35.7 g/dL (32.0-36.0); Mean Corpuscular Volume 94.1 fL (80.0-100.0); Monocytes # (auto) 0.4 10 ^3/uL (0-1.3); Neutrophils # (auto) 6.4 10 ^3/uL (1.6-8.6); Nucleated Red Blood Cells % 0.2 %; Red Blood Cells 4.47 10^6/uL (4.5-5.90); Red Cell Distribution Width 14.8 % (11.8-14.3); White Blood Cell 8.7 10^3/uL (4.4-10.8)
[2024-04-01 06:04] LABS: Alanine Aminotransferase 77 U/L (7-40); Albumin 4.5 g/dL (3.2-4.8); Alkaline Phosphatase 135 U/L (46-116); Anion Gap 9 (5-15); Aspartate Aminotransferase 65 U/L (13-40); Calcium 10.4 mg/dL (8.7-10.4); Carbon Dioxide 26 mmol/L (20-30); Chloride 101 mmol/L (98-107); Glucose 109 mg/dL (74-106); Magnesium 1.4 mg/dL (1.6-2.6); Sodium 136 mmol/L (136-145)
[2024-04-01 06:15] LABS: Bilirubin, Total 0.8 mg/dL (0.2-1.0); Total Protein 7.7 g/dL (5.7-8.2)
[2024-04-01 06:52] LABS: BUN/Creatinine Ratio 8.4 (10.0-20.0); Blood Urea Nitrogen 7 mg/dL (9-23)
[2024-04-01 08:00] VITALS: PULSE 89
[2024-04-01] MEDS: chlordiazePOXIDE HCL 25 MG CAP PO SCH (09:01)
[2024-04-01] MEDS: POTASSIUM CHL 20 Meq TABLET PO SCH (09:01)
[2024-04-01] MEDS: LIDOCAINE 5% TOPICAL PATCH TOP SCH (10:42)
[2024-04-01] MEDS: MAGNESIUM SULFATE 1GM/100ML 100 ML IV SCH (11:51)
[2024-04-01] MEDS: POTASSIUM CHL 20 Meq TABLET PO ONE (11:52)
[2024-04-01 12:15] VITALS: BP 163/80; PULSE 88; RESP 18; TEMP 98.9; O2SAT 96
[2024-04-01 16:10] VITALS: BP 160/88; PULSE 92; RESP 18; TEMP 98.8; O2SAT 96
[2024-04-01 20:15] VITALS: PULSE 87
[2024-04-01 20:40] VITALS: BP 145/84; PULSE 77; RESP 16; TEMP 98.3; O2SAT 97
[2024-04-01] MEDS: LORazepam 2MG/ML-1ML VIAL IV PRN (21:10)
[2024-04-02 01:00] VITALS: BP 158/84; PULSE 93; RESP 14; TEMP 98.1; O2SAT 94
[2024-04-02 05:00] VITALS: BP 136/96; PULSE 87; RESP 16; TEMP 98.2; O2SAT 97
[2024-04-02 05:47] LABS: Calcium 9.5 mg/dL (8.7-10.4); Chloride 105 mmol/L (98-107); Sodium 137 mmol/L (136-145)
[2024-04-02 05:48] LABS: Anion Gap 8 (5-15); Carbon Dioxide 24 mmol/L (20-30)
[2024-04-02 05:53] LABS: Blood Urea Nitrogen 10 mg/dL (9-23); Glucose 100 mg/dL (74-106)
[2024-04-02 05:54] LABS: Magnesium 1.6 mg/dL (1.6-2.6)
[2024-04-02] MEDS: chlordiazePOXIDE HCL 25 MG CAP PO SCH (05:54)
[2024-04-02 08:00] VITALS: PULSE 91
[2024-04-02 09:00] VITALS: BP 161/71; PULSE 94; RESP 24; TEMP 98.5; O2SAT 95
[2024-04-02] MEDS: MULTIPLE VITAMINS W/ MINERALS TAB PO SCH (09:22)
[2024-04-02] MEDS: THIAMINE HCL 100 MG TAB PO SCH (09:24)
[2024-04-02 13:00] VITALS: BP 129/72; PULSE 81; RESP 17; TEMP 97.9; O2SAT 97
[2024-04-02] MEDS ORDERED: FOLI-119 PO (13:46)
[2024-04-02] MEDS ORDERED: NIFE1TAB31 PO (13:46)
[2024-04-02] MEDS ORDERED: ERGO1CAP23 PO (13:46)
[2024-04-02] MEDS ORDERED: QUET200T86 PO (13:46)
[2024-04-02] MEDS ORDERED: LOSA-533 PO (13:46)
[2024-04-02 14:41] VITALS: BP 136/96; TEMP 36.6
[2024-04-02] MEDS ORDERED: POTASSIUM CHL 20MEQ/100ML 100 ML IV SCH (15:45)
== END 2024-04-02 15:40 | disposition home or self-care (01) | DRG 605 ==
LOC: ER 09:05 → TELE 14:00 → TELE-WESTW 21:12
PROVIDERS: ADMIT Nurse Practitioner Family; ATTEND Internal Medicine
DX: S20.212A Contusion of left front wall of thorax, initial encounter (principal); S00.83XA Contusion of other part of head, initial encounter; F10.129 Alcohol abuse with intoxication, unspecified; E78.5 Hyperlipidemia, unspecified; F20.9 Schizophrenia, unspecified; R74.01 Elevation of levels of liver transaminase levels; K70.9 Alcoholic liver disease, unspecified; E66.9 Obesity, unspecified; E87.6 Hypokalemia; F31.9 Bipolar disorder, unspecified; E83.42 Hypomagnesemia; W18.39XA Other fall on same level, initial encounter; I16.0 Hypertensive urgency; S09.90XA Unspecified injury of head, initial encounter; Y90.9 Presence of alcohol in blood, level not specified; Z88.2 Allergy status to sulfonamides; Z86.711 Personal history of pulmonary embolism; Z82.49 Family history of ischemic heart disease and other diseases of the circulatory system; Z86.718 Personal history of other venous thrombosis and embolism; Y93.89 Activity, other specified; Y92.89 Other specified places as the place of occurrence of the external cause; Y99.8 Other external cause status; Z68.38 Body mass index [BMI] 38.0-38.9, adult
CPT/HCPCS: 36415; 70450; 70486; 71111; 73030; 80048; 80053; 80320; 82607; 82962; 83735; 84484; 85025; 93005; 96361; 96374; 96375; 97110; 97116; 97163; 97530; G0378; J2001; J2405

== ENCOUNTER → 2024-05-18 | Outpatient (CLI) | payer MEDICARE, MEDICAID ==
[~2024-05-18] MED LIST changes: -LOSA-535 PO; -NIFE1TAB30 PO; +NIFE1TAB31 PO; -NYS5LQ MT; -THIA100T10 PO
[2024-05-18 09:26] LABS: Alanine Aminotransferase 66 U/L (7-40); Alkaline Phosphatase 99 U/L (46-116); Anion Gap 3 (5-15); BUN/Creatinine Ratio 18.2 (10.0-20.0); Blood Urea Nitrogen 20 mg/dL (9-23); Carbon Dioxide 25 mmol/L (20-30); Chloride 110 mmol/L (98-107); Glucose 118 mg/dL (74-106); Potassium 3.5 mmol/L (3.5-5.1); Sodium 138 mmol/L (136-145); Triglycerides 247 mg/dL (< 150)
[2024-05-18 09:27] LABS: Albumin 4.6 g/dL (3.2-4.8); LDL Cholesterol 139 mg/dL (< 100)
[2024-05-18 09:28] LABS: Aspartate Aminotransferase 36 U/L (13-40); Bilirubin, Total 0.5 mg/dL (0.2-1.0); Cholesterol 219 mg/dL (< 200); HDL Cholesterol 40 mg/dL (40-59); Total Protein 7.5 g/dL (5.7-8.2)
== END | disposition home or self-care (01) ==
LOC: LAB 08:05
PROVIDERS: ATTEND Internal Medicine
DX: I10 Essential (primary) hypertension (principal); E55.9 Vitamin D deficiency, unspecified; E66.9 Obesity, unspecified; Z79.899 Other long term (current) drug therapy
CPT/HCPCS: 36415; 80053; 80061; 83036

== ENCOUNTER → 2024-05-24 | Outpatient (CLI) | payer MEDICARE, MEDICAID | END | disposition home or self-care (01) | LOC: LAB 10:45 | PROVIDERS: ATTEND Internal Medicine | DX: Z12.11 Encounter for screening for malignant neoplasm of colon (principal); I10 Essential (primary) hypertension; E55.9 Vitamin D deficiency, unspecified; E66.9 Obesity, unspecified | CPT/HCPCS: 82270 ==

== ENCOUNTER 2024-05-31 09:37 | Inpatient (IN) | payer MEDICARE, MEDICAID ==
[~2024-05-31] VITALS: Ht 182.9 cm; Wt 131.0 kg
[2024-05-31] MEDS: SODIUM CHLORIDE 0.9% 1,000 ML IVB ONE (10:42)
[2024-05-31] MEDS: ONDANSETRON HCL 4 MG/2 ML VIAL IV ONE (10:42)
[2024-05-31] MEDS: LORazepam 2MG/ML-1ML VIAL IV ONE (10:43)
[2024-05-31 11:12] LABS: Eosinophils # (auto) 0 10 ^3/uL (0-0.8); Hemoglobin 12.7 g/dL (13.5-17.5); Lymphocytes # (auto) 0.6 10 ^3/uL (0.4-5.4); Mean Corpuscular Hemoglobin 34.1 pg (28.0-32.0); Nucleated Red Blood Cells % 0.3 %; Red Blood Cells 3.73 10^6/uL (4.5-5.90); White Blood Cell 11.8 10^3/uL (4.4-10.8)
[2024-05-31 11:15] LABS: Basophils # (auto) 0.1 10 ^3/uL (0-0.2); Basophils % (auto) 0.5 % (0.0-2.0); Hematocrit 36.6 % (41.0-53.0); Lymphocytes % (auto) 4.9 % (10.0-50.0); Mean Corpuscular Hgb Conc. 34.8 g/dL (32.0-36.0); Monocytes # (auto) 1.1 10 ^3/uL (0-1.3); Monocytes % (auto) 9.3 % (0.0-12.0); Neutrophils % (auto) 85.3 % (37.0-80.0); Red Cell Distribution Width 14.5 % (11.8-14.3)
[2024-05-31] MEDS: PROPOFOL 10 MG/ML 20 ML IV ONE (11:15)
[2024-05-31] MEDS: MIDAZOLAM HCL 5 MG/ML-1ML VIAL IV ONE (11:15)
[2024-05-31 11:31] LABS: Alanine Aminotransferase 126 U/L (7-40); Alkaline Phosphatase 112 U/L (46-116); Anion Gap 22 (5-15); Aspartate Aminotransferase 176 U/L (13-40); BUN/Creatinine Ratio 18.8 (10.0-20.0); Blood Urea Nitrogen 16 mg/dL (9-23); Calcium 7.9 mg/dL (8.5-10.1); Carbon Dioxide 13 mmol/L (20-30); Chloride 107 mmol/L (98-107); Glucose 140 mg/dL (74-106); Magnesium 1.2 mg/dL (1.6-2.6); Potassium 3.6 mmol/L (3.5-5.1); Sodium 142 mmol/L (136-145)
[2024-05-31 11:32] LABS: Bilirubin, Total 1.5 mg/dL (0.2-1.0); Total Protein 6.2 g/dL (5.7-8.2)
[2024-05-31 11:42] LABS: Lactic Acid w/Reflex 11.3 mmol/L (0.4-2.0)
[2024-05-31 12:10] LABS: Lipase 63 U/L (12-53)
[2024-05-31 12:11] VITALS: PULSE 119; RESP 18; O2SAT 97
[2024-05-31] MEDS: HYDROmorphone HCL 2 MG/ML VL/or syr IV ONE (13:13)
[2024-05-31] MEDS: MAGNESIUM SULFATE 1GM/100ML 100 ML IV SCH (13:46)
[2024-05-31] MEDS: LABETALOL HCL 5 MG/ML 4ML SYRINGE IV ONE (16:00)
[2024-05-31] MEDS ORDERED: DOCUSATE SOD 100 MG CAP PO PRN (17:45)
[2024-05-31] MEDS ORDERED: DEXTROSE (50%) 50ML SYRG IV PRN (17:45)
[2024-05-31] MEDS ORDERED: LORazepam 2MG/ML-1ML VIAL IV PRN (17:45)
[2024-05-31] MEDS: SODIUM CHLORIDE 0.9% 1,000 ML IV SCH (17:45)
[2024-05-31] MEDS ORDERED: NITROGLYCERIN 0.4 MG SL TAB SL PRN (17:45)
[2024-05-31] MEDS ORDERED: MORPHINE SULFATE INJ 2 MG/ml SYRG IV PRN (17:45)
[2024-05-31] MEDS ORDERED: ONDANSETRON HCL 4 MG/2 ML VIAL IV PRN (17:45)
[2024-05-31] MEDS ORDERED: ACETAMINOPHEN 325 MG TAB PO PRN (17:45)
[2024-05-31] MEDS: ACCU-CHEK COMFORT CURVE STRIP VI SCH (18:00)
[2024-05-31] MEDS: chlordiazePOXIDE HCL 25 MG CAP PO SCH (18:15)
[2024-05-31 19:20] VITALS: PULSE 111; RESP 19; O2SAT 96
[2024-05-31] MEDS: FOLIC ACID 1 MG, MULTIPLE VITAMIN 10 ML, MAGNESIUM SULF SDV 50% 8 MEQ, THIAMINE INJ 100... INJ SCH (20:20)
[2024-05-31] MEDS: HYDROcodone-ACET 5/325MG TAB PO PRN (21:04)
[2024-05-31] MEDS: LABETALOL HCL 5 MG/ML 4ML SYRINGE IV PRN (23:10)
[2024-06-01 02:35] LABS: Urine Amorphous Crystal MANY /hpf (None Seen); Urine Blood 3+ /uL (Negative); Urine Clarity Ex.Turbid (Clear); Urine Color Light-Orange (Yellow); Urine Mucus FEW (None Seen); Urine Protein, UAD 2+ (Negative); Urine Specific Gravity 1.023 (1.001-1.035); Urine Urobilinogen 4 mg/dL (Negative)
[2024-06-01] MEDS: MORPHINE SULFATE INJ 2 MG/ml SYRG IV PRN (02:35)
[2024-06-01 02:45] LABS: Urine Bacteria NONE SEEN /hpf (None Seen); Urine WBC 0 /hpf (0 - 3)
[2024-06-01] MEDS: DEXTROSE 10% 250 ML IV ONE (04:43)
[2024-06-01 06:19] LABS: Alanine Aminotransferase 120 U/L (7-40); Albumin 3.9 g/dL (3.2-4.8); Alkaline Phosphatase 117 U/L (46-116); Anion Gap 7 (5-15); Aspartate Aminotransferase 200 U/L (13-40); BUN/Creatinine Ratio 21.6 (10.0-20.0); Blood Urea Nitrogen 16 mg/dL (9-23); Calcium 8.4 mg/dL (8.7-10.4); Carbon Dioxide 25 mmol/L (20-30); Chloride 108 mmol/L (98-107); Glucose 106 mg/dL (74-106); Potassium 3.6 mmol/L (3.5-5.1); Sodium 140 mmol/L (136-145); Total Protein 6.6 g/dL (5.7-8.2)
[2024-06-01 07:20] LABS: Basophils # (auto) 0 10 ^3/uL (0-0.2); Basophils % (auto) 0.3 % (0.0-2.0); Eosinophils # (auto) 0 10 ^3/uL (0-0.8); Eosinophils % (auto) 0.1 % (0.0-7.0); Hematocrit 35.3 % (41.0-53.0); Hemoglobin 12.4 g/dL (13.5-17.5); Lymphocytes % (auto) 7.7 % (10.0-50.0); Mean Corpuscular Volume 97.2 fL (80.0-100.0); Monocytes # (auto) 0.8 10 ^3/uL (0-1.3); Monocytes % (auto) 6.1 % (0.0-12.0); Neutrophils # (auto) 10.8 10 ^3/uL (1.6-8.6); Neutrophils % (auto) 85.8 % (37.0-80.0); Nucleated Red Blood Cells % 0.2 %; Red Blood Cells 3.63 10^6/uL (4.5-5.90); Red Cell Distribution Width 14.8 % (11.8-14.3); White Blood Cell 12.6 10^3/uL (4.4-10.8)
[2024-06-01 08:45] VITALS: BP_SYST 172; BP_SYST 177; BP_DIAS 82; PULSE 87; PULSE 88; RESP 17; RESP 20; TEMP 98.1; TEMP 98.3; O2SAT 95; O2SAT 98
[2024-06-01 08:58] VITALS: PULSE 88
[2024-06-01] MEDS: PANTOPRAZOLE 40 MG/10 ML VIAL INJ IV SCH (09:22)
[2024-06-01] MEDS: MAGNESIUM SULFATE 1GM/100ML 100 ML IV ONE (09:32)
[2024-06-01] MEDS ORDERED: PANTOPRAZOLE 40 MG/10 ML VIAL INJ IV SCH (10:00)
[2024-06-01] MEDS: NEOMYCIN-POLYM-GRAM OPTH(EYE) SOL 10ML EACHEYE ONE (10:45)
[2024-06-01 10:49] LABS: Amphetamine Screen, Urine Neg (NEGATIVE); Barbiturate Scree,Urine Neg (NEGATIVE); Benzodiazephine Screen, Urine Pos (NEGATIVE); Cannabinoid Screen, Urine Pos (NEGATIVE); Cocaine Screen, Urine Neg (NEGATIVE); Opiate Scree,Urine Pos (NEGATIVE); Phencyclidine Screen, Urine Neg (NEGATIVE)
[2024-06-01 10:49] LABS: Magnesium 1.9 mg/dL (1.6-2.6)
[2024-06-01 10:51] LABS: Phosphorus 0.7 mg/dL (2.4-5.1)
[2024-06-01 10:56] LABS: INR 1.07 (0.9-1.15); Partial Thromboplastin Time 22.5 SEC (24.5-34.5); Prothrombin Time 11.3 sec (9.3-11.8)
[2024-06-01] MEDS: hydrALAZINE HCL 20 MG/ML VL IV PRN (11:32)
[2024-06-01] MEDS: NEOMYCIN-POLYM-GRAM OPTH(EYE) SOL 10ML EACHEYE SCH (13:06)
[2024-06-01] MEDS ORDERED: PROPOFOL 10 MG/ML 20 ML IV ONE (14:06)
[2024-06-01] MEDS ORDERED: GLYCOPYRROLATE 0.2 MG/ML 1ML VIAL ONE (14:06)
[2024-06-01] MEDS ORDERED: DexAMETHasone SOD PHOS 10MG/1ML VIAL INJ ONE (14:06)
[2024-06-01] MEDS ORDERED: KETOROLAC TROMETH 30 MG/ML 1ML VIAL ONE (14:06)
[2024-06-01] MEDS ORDERED: ONDANSETRON HCL 4 MG/2 ML VIAL ONE (14:06)
[2024-06-01] MEDS ORDERED: LIDOCAINE 1% INJ PF 5ML AMP ONE (14:06)
[2024-06-01] MEDS ORDERED: KETAMINE 50mg/ML 1ml syringe ONE (14:42)
[2024-06-01 14:59] VITALS: O2SAT 98
[2024-06-01] MEDS ORDERED: hydrALAZINE HCL 20 MG/ML VL IV PRN (15:15)
[2024-06-01] MEDS ORDERED: ePHEDrine SULFATE 50 MG/ML AMP IV PRN (15:15)
[2024-06-01] MEDS ORDERED: ONDANSETRON HCL 4 MG/2 ML VIAL IV PRN (15:15)
[2024-06-01] MEDS ORDERED: FLUMAZENIL 0.1 MG/ML INJ 10ML MDV IV PRN (15:15)
[2024-06-01] MEDS ORDERED: LABETALOL HCL 5 MG/ML 4ML SYRINGE IV PRN (15:15)
[2024-06-01] MEDS ORDERED: NALOXONE HCL 0.4 MG/ML VIAL IV PRN (15:15)
[2024-06-01] MEDS ORDERED: HYDROmorphone HCL 2 MG/ML VL/or syr IV PRN (15:15)
[2024-06-01] MEDS ORDERED: fentaNYL CITRATE 100 MCG/2 ML VL IV PRN (15:15)
[2024-06-01] MEDS ORDERED: oxyCODONE HCL 5MG TAB PO PRN (15:15)
[2024-06-01] MEDS: LIDOCAINE 1% (LOCAL ANESTH.) PF 5ml SDV ONE (16:53)
[2024-06-01] MEDS: LIDOCAINE 2%HCL (LOCAL ANESTH.) INJ 10ml MDV ONE (16:53)
[2024-06-01 17:05] VITALS: BP 147/69; PULSE 82; RESP 18; TEMP 99.2; O2SAT 97
[2024-06-01 20:00] VITALS: PULSE 81; PULSE 84; RESP 19; O2SAT 94
[2024-06-01 21:00] VITALS: BP 149/75; PULSE 84; RESP 20; TEMP 98.7; O2SAT 97
[2024-06-01] MEDS: chlordiazePOXIDE HCL 25 MG CAP PO SCH (21:25)
[2024-06-02] VITALS (8 sets, daily range): BP systolic 120–167; BP diastolic 53–88; PULSE 67–82; RESP 16–20; TEMP 98–98.8; O2SAT 93–98
[2024-06-02 06:48] LABS: Basophils # (auto) 0 10 ^3/uL (0-0.2); Basophils % (auto) 0.2 % (0.0-2.0); Eosinophils # (auto) 0 10 ^3/uL (0-0.8); Hematocrit 31.4 % (41.0-53.0); Lymphocytes # (auto) 0.9 10 ^3/uL (0.4-5.4); Lymphocytes % (auto) 8.5 % (10.0-50.0); Mean Corpuscular Hemoglobin 33.9 pg (28.0-32.0); Mean Corpuscular Hgb Conc. 34.9 g/dL (32.0-36.0); Mean Corpuscular Volume 97.2 fL (80.0-100.0); Monocytes # (auto) 0.7 10 ^3/uL (0-1.3); Monocytes % (auto) 6.8 % (0.0-12.0); Neutrophils % (auto) 84.5 % (37.0-80.0); Nucleated Red Blood Cells % 0.5 %; Red Blood Cells 3.23 10^6/uL (4.5-5.90); Red Cell Distribution Width 14.3 % (11.8-14.3); White Blood Cell 10.7 10^3/uL (4.4-10.8)
[2024-06-02 07:11] LABS: Alanine Aminotransferase 131 U/L (7-40); Albumin 3.6 g/dL (3.2-4.8); Alkaline Phosphatase 140 U/L (46-116); Anion Gap 9 (5-15); Aspartate Aminotransferase 169 U/L (13-40); BUN/Creatinine Ratio 29.7 (10.0-20.0); Blood Urea Nitrogen 22 mg/dL (9-23); Calcium 7.9 mg/dL (8.5-10.1); Carbon Dioxide 22 mmol/L (20-30); Chloride 105 mmol/L (98-107); Cholesterol 180 mg/dL (< 200); Glucose 108 mg/dL (74-106); HDL Cholesterol 60 mg/dL (40-59); LDL Cholesterol 100 mg/dL (< 100); Magnesium 1.9 mg/dL (1.6-2.6); Phosphorus 1.6 mg/dL (2.4-5.1); Potassium 3.4 mmol/L (3.5-5.1); Sodium 136 mmol/L (136-145); Triglycerides 137 mg/dL (< 150)
[2024-06-02 07:12] LABS: Bilirubin, Total 1.4 mg/dL (0.2-1.0)
[2024-06-02] MEDS: CALCIUM GLUC 1,000mg/50ml-NS 50 ML IV ONE (10:45)
[2024-06-02] MEDS: POTASSIUM CHL 20MEQ/100ML 100 ML IV ONE (11:52)
[2024-06-02] MEDS: POTASSIUM PHOSPHATE 22 MEQ in SODIUM CHL 0.9% 100 ML IV ONE (13:50)
[2024-06-02] MEDS ORDERED: ENOXAPARIN SOD 100 MG/1 ML SYRINGE SC ONE (14:30)
[2024-06-02] MEDS: PANTOPRAZOLE 40 MG TAB PO SCH (16:34)
[2024-06-02] MEDS: FOLIC ACID 1 MG TAB PO SCH (17:40)
[2024-06-02] MEDS: LACTULOSE 20Gm/30ML SOLN PO SCH (21:30)
[2024-06-02] MEDS: chlordiazePOXIDE HCL 25 MG CAP PO SCH (21:30)
[2024-06-02] MEDS: QUETIAPINE FUMARATE PO SCH (21:33)
[2024-06-02] MEDS ORDERED: ENOXAPARIN SOD 150 MG/1 ML SYRINGE SC SCH (22:00)
[2024-06-02] MEDS: LABETALOL HCL 5 MG/ML ML 20ML VIAL IV PRN (22:21)
[2024-06-03] VITALS (12 sets, daily range): BP systolic 141–187; BP diastolic 81–94; PULSE 72–99; RESP 17–20; TEMP 97.6–98.3; O2SAT 94–96
[2024-06-03 06:08] LABS: Basophils # (auto) 0 10 ^3/uL (0-0.2); Basophils % (auto) 0.3 % (0.0-2.0); Eosinophils # (auto) 0.1 10 ^3/uL (0-0.8); Eosinophils % (auto) 0.9 % (0.0-7.0); Hematocrit 33.1 % (41.0-53.0); Lymphocytes # (auto) 1.1 10 ^3/uL (0.4-5.4); Lymphocytes % (auto) 12.3 % (10.0-50.0); Mean Corpuscular Hemoglobin 35.2 pg (28.0-32.0); Mean Corpuscular Hgb Conc. 36.2 g/dL (32.0-36.0); Mean Corpuscular Volume 97.2 fL (80.0-100.0); Monocytes # (auto) 0.6 10 ^3/uL (0-1.3); Monocytes % (auto) 6.3 % (0.0-12.0); Neutrophils # (auto) 7.4 10 ^3/uL (1.6-8.6); Neutrophils % (auto) 80.2 % (37.0-80.0); Nucleated Red Blood Cells % 0.4 %; Red Blood Cells 3.41 10^6/uL (4.5-5.90); Red Cell Distribution Width 14.4 % (11.8-14.3); White Blood Cell 9.3 10^3/uL (4.4-10.8)
[2024-06-03 06:31] LABS: Alanine Aminotransferase 116 U/L (7-40); Alkaline Phosphatase 148 U/L (46-116)
[2024-06-03 06:32] LABS: Albumin 3.6 g/dL (3.2-4.8); Anion Gap 9 (5-15); Aspartate Aminotransferase 113 U/L (13-40); BUN/Creatinine Ratio 21.3 (10.0-20.0); Bilirubin, Total 1.1 mg/dL (0.2-1.0); Blood Urea Nitrogen 13 mg/dL (9-23); Calcium 8.3 mg/dL (8.7-10.4); Carbon Dioxide 22 mmol/L (20-30); Chloride 106 mmol/L (98-107); Creatine Kinase IFCC 583 U/L (46-171); Glucose 89 mg/dL (74-106); Magnesium 1.5 mg/dL (1.6-2.6); Phosphorus 1.7 mg/dL (2.4-5.1); Potassium 2.9 mmol/L (3.5-5.1); Sodium 137 mmol/L (136-145)
[2024-06-03] MEDS ORDERED: POTASSIUM PHOSPHATE 22 MEQ in SODIUM CHL 0.9% 100 ML IV ONE ×5 (07:00→22:00)
[2024-06-03 07:04] LABS: Total Protein 6.1 g/dL (5.7-8.2)
[2024-06-03] MEDS ORDERED: [UNRECOGNIZED DRUG - CODE] EACHEYE (08:08)
[2024-06-03] MEDS: NIFEdipine ER 30 MG TAB PO SCH (09:22)
[2024-06-03] MEDS: LOSARTAN POTASSIUM 25 MG TAB PO SCH (09:22)
[2024-06-03] MEDS: MULTIPLE VITAMIN TAB PO SCH (09:22)
[2024-06-03] MEDS: MAGNESIUM SULFATE 1GM/100ML 100 ML IV ONE ×2 (09:23→22:00)
[2024-06-03] MEDS: CALCIUM GLUC 1,000mg/50ml-NS 50 ML IV ONE (09:27)
[2024-06-03 10:32] LABS: Hepatitis C Antibody Negative (Negative)
[2024-06-03] MEDS: POTASSIUM CHL 20MEQ/100ML 100 ML IV SCH ×2 (10:37→21:09)
[2024-06-03 13:47] LABS: Chloride 108 mmol/L (98-107); Potassium 3.1 mmol/L (3.5-5.1); Sodium 137 mmol/L (136-145)
[2024-06-03 13:48] LABS: Anion Gap 9 (5-15); Calcium 8.8 mg/dL (8.7-10.4); Carbon Dioxide 20 mmol/L (20-30)
[2024-06-03 13:53] LABS: Blood Urea Nitrogen 11 mg/dL (9-23); Glucose 101 mg/dL (74-106)
[2024-06-03 13:54] LABS: Magnesium 1.5 mg/dL (1.6-2.6)
[2024-06-03 13:55] LABS: Phosphorus 1.8 mg/dL (2.4-5.1)
[2024-06-03] MEDS ORDERED: POTASSIUM CHL 20MEQ/100ML 100 ML IV SCH (16:00)
[2024-06-03] MEDS ORDERED: MAGNESIUM SULFATE 1GM/100ML 100 ML IV ONE ×3 (16:00→22:00)
[2024-06-03] MEDS: QUEtiapine FUMARATE 100 MG TAB PO SCH (21:09)
[2024-06-03] MEDS: HEPARIN SODIUM (PORCINE) 5000 UNITS/ML 1ML VIAL SC SCH (21:41)
[2024-06-04 00:34] LABS: Potassium 3.1 mmol/L (3.5-5.1)
[2024-06-04 00:41] LABS: Magnesium 1.4 mg/dL (1.6-2.6)
[2024-06-04 01:00] VITALS: BP 123/73; PULSE 101; RESP 22; TEMP 98.3; O2SAT 96
[2024-06-04] MEDS: POTASSIUM CHL 20MEQ/100ML 100 ML IV ONE (01:30)
[2024-06-04] MEDS: MAGNESIUM SULFATE 1GM/100ML 100 ML IV ONE (01:51)
[2024-06-04 05:00] VITALS: BP 149/79; PULSE 104; RESP 22; TEMP 98.5; O2SAT 98
[2024-06-04] MEDS: chlordiazePOXIDE HCL 25 MG CAP PO SCH (05:36)
[2024-06-04 07:43] LABS: Hematocrit 33.7 % (41.0-53.0); Hemoglobin 11.8 g/dL (13.5-17.5); Mean Corpuscular Hemoglobin 34.1 pg (28.0-32.0); Mean Corpuscular Hgb Conc. 35.1 g/dL (32.0-36.0); Mean Corpuscular Volume 97.3 fL (80.0-100.0); Red Blood Cells 3.47 10^6/uL (4.5-5.90); Red Cell Distribution Width 14.8 % (11.8-14.3); White Blood Cell 7.2 10^3/uL (4.4-10.8)
[2024-06-04 07:45] LABS: Band Neutrophils % (manual) 0; Basophils % (manual) 0 (0.0-2.0); Blast Cells 0; Eosinophils % (manual) 0 (0-7); Metamyelocytes % 0; Myelocytes % 0; Promyelocytes % 0; Reactive Lymphocytes 0
[2024-06-04 07:51] LABS: Alanine Aminotransferase 94 U/L (7-40); Albumin 3.7 g/dL (3.2-4.8); Alkaline Phosphatase 139 U/L (46-116); Anion Gap 11 (5-15); Aspartate Aminotransferase 64 U/L (13-40); BUN/Creatinine Ratio 19.7 (10.0-20.0); Blood Urea Nitrogen 13 mg/dL (9-23); Calcium 8.6 mg/dL (8.5-10.1); Carbon Dioxide 21 mmol/L (20-30); Chloride 107 mmol/L (98-107); Glucose 91 mg/dL (74-106); Magnesium 1.5 mg/dL (1.6-2.6); Potassium 3.1 mmol/L (3.5-5.1); Sodium 139 mmol/L (136-145)
[2024-06-04 08:00] VITALS: BP 150/92; PULSE 103; RESP 22; TEMP 98.2; O2SAT 97
[2024-06-04 08:08] LABS: Giant Platelets Few; Lymphocytes % (manual) 7 (10.0-50.0); Monocytes % (manual) 9 (0-12); Platelet Estimate Adequate; Smudge Cells 1 /100 WBC
[2024-06-04] MEDS ORDERED: POTA-36 PO ×2 (11:22→11:36)
[2024-06-04] MEDS ORDERED: MAGN400T40 PO (11:26)
[2024-06-04] MEDS: MAGNESIUM OXIDE 400 MG TAB PO ONE (11:30)
[2024-06-04] MEDS ORDERED: MAGNESIUM OXIDE 400 MG TAB PO ONE (11:45)
[2024-06-04] MEDS: POTASSIUM CHL 20 Meq TABLET PO ONE ×2 (12:27→12:29)
[2024-06-04 13:00] VITALS: BP 135/79; PULSE 102; RESP 22; TEMP 98; O2SAT 96
[2024-06-04 15:47] LABS: Potassium 3.7 mmol/L (3.5-5.1)
[2024-06-04 15:54] LABS: Magnesium 1.5 mg/dL (1.6-2.6)
[2024-06-07 14:16] LABS: Hepatitis B Core IgM Negative
[2024-06-07 14:17] LABS: Hepatitis A Ab IgM Negative
[2024-06-08 03:44] LABS: Hepatitis B Surface Antigen Negative (Negative)
== END 2024-06-04 16:40 | disposition home or self-care (01) | DRG 565 ==
LOC: ER 09:37 → EDBD 09:37 → TELE 18:03 → TELE-WESTW 06-01 08:53 → WEST WING 06-03 17:45
PROVIDERS: ADMIT Internal Medicine; ATTEND Emergency Medicine
PROC: 0PSDXZZ Reposition Left Humeral Head, External Approach (ICD-10-PCS; principal; 2024-06-01 14:39)
DX: T79.6XXA Traumatic ischemia of muscle, initial encounter (principal); E87.20 Acidosis, unspecified; S42.292A Other displaced fracture of upper end of left humerus, initial encounter for closed fracture; F10.139 Alcohol abuse with withdrawal, unspecified; K92.2 Gastrointestinal hemorrhage, unspecified; I10 Essential (primary) hypertension; F20.9 Schizophrenia, unspecified; R31.9 Hematuria, unspecified; E87.6 Hypokalemia; E83.39 Other disorders of phosphorus metabolism; E83.51 Hypocalcemia; K70.9 Alcoholic liver disease, unspecified; R74.01 Elevation of levels of liver transaminase levels; F41.9 Anxiety disorder, unspecified; W18.39XA Other fall on same level, initial encounter; E83.42 Hypomagnesemia; E11.9 Type 2 diabetes mellitus without complications; R74.8 Abnormal levels of other serum enzymes; F31.9 Bipolar disorder, unspecified; Y90.9 Presence of alcohol in blood, level not specified; D69.6 Thrombocytopenia, unspecified; Z86.711 Personal history of pulmonary embolism; Z88.2 Allergy status to sulfonamides; Z79.899 Other long term (current) drug therapy; Y93.89 Activity, other specified; Y99.8 Other external cause status; Z86.718 Personal history of other venous thrombosis and embolism; Z82.49 Family history of ischemic heart disease and other diseases of the circulatory system; Z83.3 Family history of diabetes mellitus; Z79.01 Long term (current) use of anticoagulants; Z82.3 Family history of stroke; Y92.009 Unspecified place in unspecified non-institutional (private) residence as the place of occurrence of the external cause
CPT/HCPCS: 36415; 71045; 73020; 73030; 73200; 76000; 76705; 80048; 80053; 80061; 80074; 80307; 81001; 82140; 82270; 82306; 82550; 82607; 82962; 83605; 83690; 83735; 84100; 84132; 84443; 84484; 85007; 85025; 85027; 85610; 85730; 86850; 86900; 86901; 87081; 93005; 97110; 97116; 97163; 97530; G0378; J1100; J1885; J2001; J2250; J2405; J2470; J2704; J3480; J3490

== ENCOUNTER → 2024-06-28 | Outpatient (CLI) | payer MEDICARE, MEDICAID ==
[~2024-06-28] MED LIST changes: -APIX5TAB PO; +MAGN400T40 PO; +POTA-36 PO; +[UNRECOGNIZED DRUG - CODE] EACHEYE
[2024-06-28 08:15] LABS: Urine Bacteria None Seen /hpf (None Seen)
[2024-06-28 08:20] LABS: Basophils # (auto) 0.1 10 ^3/uL (0-0.2); Eosinophils # (auto) 0.3 10 ^3/uL (0-0.8); Eosinophils % (auto) 3.9 % (0.0-7.0); Hematocrit 43.1 % (41.0-53.0); Lymphocytes # (auto) 1.7 10 ^3/uL (0.4-5.4); Lymphocytes % (auto) 26.4 % (10.0-50.0); Mean Corpuscular Hemoglobin 33.3 pg (28.0-32.0); Mean Corpuscular Hgb Conc. 34.8 g/dL (32.0-36.0); Mean Corpuscular Volume 95.7 fL (80.0-100.0); Monocytes # (auto) 0.8 10 ^3/uL (0-1.3); Monocytes % (auto) 11.6 % (0.0-12.0); Neutrophils # (auto) 3.7 10 ^3/uL (1.6-8.6); Neutrophils % (auto) 57.1 % (37.0-80.0); Nucleated Red Blood Cells % 0.3 %; Red Cell Distribution Width 14.5 % (11.8-14.3); White Blood Cell 6.5 10^3/uL (4.4-10.8)
[2024-06-28 08:34] LABS: Urine Blood Negative /uL (Negative); Urine Clarity Clear (Clear); Urine Color Light-Yellow (Yellow); Urine Mucus FEW (None Seen); Urine Protein, UAD Negative (Negative); Urine Specific Gravity 1.021 (1.001-1.035); Urine Urobilinogen Normal (Negative); Urine WBC 1 /hpf (0 - 3); Urine pH 5.5 (5.0-9.0)
[2024-06-28 09:19] LABS: Alanine Aminotransferase 54 U/L (7-40); Albumin 4.8 g/dL (3.2-4.8); Alkaline Phosphatase 112 U/L (46-116); Anion Gap 7 (5-15); Aspartate Aminotransferase 32 U/L (13-40); BUN/Creatinine Ratio 17.4 (10.0-20.0); Bilirubin, Total 0.6 mg/dL (0.2-1.0); Blood Urea Nitrogen 20 mg/dL (9-23); Calcium 10.6 mg/dL (8.7-10.4); Carbon Dioxide 24 mmol/L (20-30); Chloride 105 mmol/L (98-107); Creatine Kinase IFCC 86 U/L (46-171); Glucose 106 mg/dL (74-106); Potassium 4.2 mmol/L (3.5-5.1); Sodium 136 mmol/L (136-145); Total Protein 7.9 g/dL (5.7-8.2)
== END | disposition home or self-care (01) ==
LOC: LAB 07:56
PROVIDERS: ATTEND Internal Medicine
DX: I10 Essential (primary) hypertension (principal); R60.0 Localized edema; K92.2 Gastrointestinal hemorrhage, unspecified
CPT/HCPCS: 36415; 80053; 81001; 82550; 85025; 85379

== ENCOUNTER → 2024-07-22 | Outpatient (CLI) | payer MEDICARE, MEDICAID | END | disposition home or self-care (01) | LOC: Rad HDHVI 08:10 | PROVIDERS: ATTEND Internal Medicine Cardiovascular Disease | DX: Z01.818 Encounter for other preprocedural examination (principal) | CPT/HCPCS: 93306 ==

== ENCOUNTER → 2024-08-25 | Outpatient (CLI) | payer MEDICARE, MEDICAID ==
[~2024-08-25] VITALS: Ht 182.9 cm; Wt 131.1 kg
[~2024-08-25] MED LIST changes: +ADENOSINE 110 MG in GIVE UN-DILUTED 0 ML IV ONE; +MULTIPLE VIT 10 ML IV ONE; +ONDANSETRON HCL 4 MG/2 ML VIAL IM ONE; +ONDANSETRON HCL 4 MG/2 ML VIAL ONE; +amLODIPine BESYLATE 5 MG TAB ONE
[2024-08-25 10:05] VITALS: BP 179/120; PULSE 99; RESP 20; O2SAT 96
[2024-08-25] MEDS: ONDANSETRON HCL 4 MG/2 ML VIAL IV ONE (10:05)
[2024-08-25] MEDS: MVI in SODIUM CHLORIDE 0.9% 500 ML IVB ONE (10:20)
[2024-08-25] MEDS: amLODIPine BESYLATE 5 MG TAB PO ONE (10:55)
[2024-08-25 13:15] VITALS: BP 149/98; PULSE 77; RESP 22; O2SAT 96
== END | disposition home or self-care (01) ==
LOC: Rad HDHVI 09:04
PROVIDERS: ATTEND Internal Medicine Cardiovascular Disease
DX: E86.0 Dehydration (principal); I10 Essential (primary) hypertension; I25.10 Atherosclerotic heart disease of native coronary artery without angina pectoris; E78.5 Hyperlipidemia, unspecified; Z79.899 Other long term (current) drug therapy
CPT/HCPCS: 96365; 96366; 96375; G0463; J2405; J3411; J3475; J7040; 78452; 93005; 96360; 96361; 96374; J0153

== ENCOUNTER → 2024-08-30 | Outpatient (CLI) | payer MEDICARE, MEDICAID ==
[~2024-08-30] VITALS: Ht 182.9 cm; Wt 131.5 kg
[~2024-08-30] MED LIST changes: -ADENOSINE 110 MG in GIVE UN-DILUTED 0 ML IV ONE; +DOBUTamine 1000MCG/ML 100 ML IV ONE; +DOBUTamine 1000MCG/ML 250 ML IV ONE; -MULTIPLE VIT 10 ML IV ONE; -ONDANSETRON HCL 4 MG/2 ML VIAL IM ONE; -ONDANSETRON HCL 4 MG/2 ML VIAL ONE; -amLODIPine BESYLATE 5 MG TAB ONE
[2024-08-30 09:30] VITALS: BP 146/82; PULSE 72
[2024-08-30 10:00] VITALS: BP 158/76; PULSE 78
== END | disposition home or self-care (01) ==
LOC: Rad HDHVI 08:14
PROVIDERS: ATTEND Internal Medicine Cardiovascular Disease
DX: Z01.810 Encounter for preprocedural cardiovascular examination (principal); I10 Essential (primary) hypertension; R07.89 Other chest pain; I25.10 Atherosclerotic heart disease of native coronary artery without angina pectoris; E78.5 Hyperlipidemia, unspecified; Z82.49 Family history of ischemic heart disease and other diseases of the circulatory system; Z79.899 Other long term (current) drug therapy
CPT/HCPCS: 93306; J1250

== ENCOUNTER 2024-09-06 09:26 | Emergency (ER) | payer MEDICARE, MEDICAID ==
[~2024-09-06] VITALS: Ht 182.9 cm; Wt 125.0 kg
[~2024-09-06 09:26] MED LIST changes: -DOBUTamine 1000MCG/ML 100 ML IV ONE; -DOBUTamine 1000MCG/ML 250 ML IV ONE
[2024-09-06 10:42] VITALS: BP 133/101; PULSE 111; RESP 16; TEMP 97.7; O2SAT 97
== END 2024-09-06 11:01 | disposition home or self-care (01) ==
LOC: ER 09:26
DX: T83.098D Other mechanical complication of other urinary catheter, subsequent encounter (principal); I10 Essential (primary) hypertension; E78.5 Hyperlipidemia, unspecified; F20.9 Schizophrenia, unspecified; F10.90 Alcohol use, unspecified, uncomplicated; F15.90 Other stimulant use, unspecified, uncomplicated; Z46.6 Encounter for fitting and adjustment of urinary device; Z88.2 Allergy status to sulfonamides; Z79.899 Other long term (current) drug therapy; Y92.89 Other specified places as the place of occurrence of the external cause; Y90.0 Blood alcohol level of less than 20 mg/100 ml

== ENCOUNTER 2024-09-29 19:01 | Emergency (ER) | payer MEDICARE, MEDICAID ==
[~2024-09-29] VITALS: Ht 182.9 cm; Wt 124.0 kg
[2024-09-29 20:11] LABS: Basophils # (auto) 0 10 ^3/uL (0-0.2); Basophils % (auto) 0.3 % (0.0-2.0); Eosinophils # (auto) 0 10 ^3/uL (0-0.8); Eosinophils % (auto) 0.1 % (0.0-7.0); Hematocrit 44.5 % (41.0-53.0); Hemoglobin 15.7 g/dL (13.5-17.5); Lymphocytes # (auto) 0.4 10 ^3/uL (0.4-5.4); Lymphocytes % (auto) 5.4 % (10.0-50.0); Mean Corpuscular Hemoglobin 33.3 pg (28.0-32.0); Mean Corpuscular Hgb Conc. 35.4 g/dL (32.0-36.0); Mean Corpuscular Volume 94.2 fL (80.0-100.0); Monocytes # (auto) 0.2 10 ^3/uL (0-1.3); Monocytes % (auto) 2.3 % (0.0-12.0); Neutrophils # (auto) 6.7 10 ^3/uL (1.6-8.6); Neutrophils % (auto) 91.9 % (37.0-80.0); Platelet Count (auto) 169 10^3/uL (140-450); Red Blood Cells 4.72 10^6/uL (4.5-5.90); Red Cell Distribution Width 14.5 % (11.8-14.3); White Blood Cell 7.3 10^3/uL (4.4-10.8)
[2024-09-29 20:30] LABS: Alanine Aminotransferase 71 U/L (7-40); Albumin 4.9 g/dL (3.2-4.8); Alkaline Phosphatase 106 U/L (46-116); Anion Gap 11 (5-15); Aspartate Aminotransferase 66 U/L (13-40); BUN/Creatinine Ratio 14.3 (10.0-20.0); Blood Urea Nitrogen 16 mg/dL (9-23); Calcium 10.5 mg/dL (8.7-10.4); Carbon Dioxide 18 mmol/L (20-31); Chloride 105 mmol/L (98-107); Glucose 136 mg/dL (74-106); Potassium 4.7 mmol/L (3.5-5.1); Sodium 134 mmol/L (136-145)
[2024-09-29 20:31] LABS: Total Protein 8.5 g/dL (5.7-8.2)
[2024-09-29] MEDS: HYDROcodone-ACET 10/325MG TAB PO ONE (20:33)
[2024-09-29] MEDS: HYDROcodone-ACET 5/325MG TAB PO ONE (20:33)
[2024-09-29 22:42] LABS: Urine Bacteria None Seen /hpf (None Seen)
[2024-09-29 22:50] VITALS: BP 154/92; PULSE 97; RESP 18; TEMP 99.3; O2SAT 97
[2024-09-29 23:16] LABS: Urine Blood 3+ /uL (Negative); Urine Clarity Ex.Turbid (Clear); Urine Color Light-Red (Yellow); Urine Protein, UAD 2+ (Negative); Urine Specific Gravity 1.016 (1.001-1.035); Urine Urobilinogen Normal (Negative); Urine WBC 56 /hpf (0 - 3); Urine pH 8.5 (5.0-9.0)
== END 2024-09-29 22:54 | disposition home or self-care (01) ==
LOC: ER 19:01
DX: T83.038D Leakage of other urinary catheter, subsequent encounter (principal); R79.89 Other specified abnormal findings of blood chemistry; R31.9 Hematuria, unspecified; I10 Essential (primary) hypertension; Z88.2 Allergy status to sulfonamides; Z79.899 Other long term (current) drug therapy; Z98.890 Other specified postprocedural states
CPT/HCPCS: 36415; 80053; 81001; 85025

== ENCOUNTER 2024-11-02 03:16 | Inpatient (IN) | payer MEDICARE, MEDICAID ==
[~2024-11-02] VITALS: Ht 182.9 cm; Wt 126.2 kg
--- NOTE | 2024-11-02 04:28 | ECG ---
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
[2024-11-02 04:32] LABS: Basophils # (auto) 0 10 ^3/uL (0-0.2); Basophils % (auto) 0.3 % (0.0-2.0); Eosinophils # (auto) 0.2 10 ^3/uL (0-0.8); Eosinophils % (auto) 1.2 % (0.0-7.0); Hemoglobin 14.7 g/dL (13.5-17.5); Lymphocytes % (auto) 7.7 % (10.0-50.0); Mean Corpuscular Hemoglobin 33.7 pg (28.0-32.0); Mean Corpuscular Volume 96.3 fL (80.0-100.0); Monocytes # (auto) 0.6 10 ^3/uL (0-1.3); Monocytes % (auto) 4.7 % (0.0-12.0); Neutrophils % (auto) 86.1 % (37.0-80.0); Platelet Count (auto) 231 10^3/uL (140-450); Red Blood Cells 4.36 10^6/uL (4.5-5.90); Red Cell Distribution Width 14.2 % (11.8-14.3); White Blood Cell 12.8 10^3/uL (4.4-10.8)
[2024-11-02 04:45] LABS: Alanine Aminotransferase 76 U/L (7-40); Albumin 4.5 g/dL (3.2-4.8); Alkaline Phosphatase 121 U/L (46-116); Anion Gap 11 (5-15); Aspartate Aminotransferase 63 U/L (13-40); BUN/Creatinine Ratio 12.9 (10.0-20.0); Blood Urea Nitrogen 15 mg/dL (9-23); Calcium 11.4 mg/dL (8.7-10.4); Carbon Dioxide 24 mmol/L (20-31); Chloride 101 mmol/L (98-107); Glucose 110 mg/dL (74-106); Magnesium 1.3 mg/dL (1.6-2.6); Potassium 3.8 mmol/L (3.5-5.1); Sodium 136 mmol/L (136-145)
[2024-11-02 04:46] LABS: Bilirubin, Total 1.8 mg/dL (0.2-1.0); Total Protein 7.6 g/dL (5.7-8.2)
[2024-11-02 04:51] LABS: INR 1.11 (0.9-1.15); Partial Thromboplastin Time 29.2 SEC (24.5-34.5); Prothrombin Time 11.7 sec (9.3-11.8)
--- NOTE | 2024-11-02 05:09 | DVH ---
CHEST RADIOGRAPH Indication: CHEST PAIN Technique: Single frontal view of the chest was obtained Comparison: XY CHEST PORTABLE on DOS: 05/31/24 FINDINGS: Lines and Tubes: None Lungs: No focal consolidation. Pleura: No effusion. No pneumothorax. Cardiomediastinal contours: Unremarkable Bones: No acute osseous abnormality. IMPRESSION: 1. No acute cardiopulmonary disease.
--- NOTE | 2024-11-02 05:42 | ED.PDOC ---
History of Present Illness HPI Comments 64M with HTN and alcoholic cirrhosis presents with 3 days of worsening 8/10 sharp epigastric pain that is not radiating associated with nausea and multiple episodes of NBNB emesis. Patient reports he has had pancreatitis in the past and this feels similar. Chief Complaint: Chest Pain Time Seen by MD: 04:04 Primary Care Provider: UNKNOWN Allergies: Coded Allergies: Sulfa Antibiotics (Verified Allergy, Unknown, 08/19/21) Home Meds Active Scripts Potassium Chloride (POTASSIUM CHLORIDE CR) 10 Meq Tb, 1 TAB PO DAILY for 14 Days, #14 TAB 5 Refills Prov:AUSTIN LEONARD RESIDENT 06/04/24 Magnesium Oxide (MAGNESIUM OXIDE) 400 Mg Tab, 1 TAB PO DAILY for 30 Days, #30 TAB 5 Refills Prov:AUSTIN LEONARD 06/04/24 Usmpjwvt-Moxgqx-Igkohvbw (Neomycin/Polymyxin/Gramic) Op Karon, 1 DROP EACHEYE Q4HR for 7 Days, #30 ML Prov:AUSTIN LEONARD RESIDENT 06/03/24 Nifedipine (Nifedipine Er) 30 Mg Tab, 60 MG PO DAILY for 30 Days, #60 TAB 9 Refills Prov:SAM JUNG DO 04/02/24 Quetiapine Fumarate (Quetiapine Fumarate ER) 200 Mg Tab, 1 TAB PO QPM for 30 Days, #30 TAB 9 Refills Prov:JACQUES JUNGMY Loida DO 04/02/24 Folic Acid (Folic Acid) 1 Mg Tab, 1 MG PO DAILY for 30 Days, #30 TAB 9 Refills Prov:JUNGJACQUES FrederickMY Loida DO 04/02/24 Ergocalciferol (VITAMIN D 68769 UNIT) 50,000 [place], [address] UNIT PO Q7D for 10 Days, #10 CAP 9 Refills Prov:JACQUES JUNGMY Loida DO 04/02/24 Losartan Potassium (Losartan Potassium) 25 Mg Tab, 1 TAB PO DAILY for 30 Days, #30 TAB 9 Refills Prov:SAM JUNG DO 04/02/24 Multiple Vitamin (Mvi Tab) 1 Tab Tb, 1 TAB PO DAILY for 30 Days, #30 TAB Prov:SHALOM CALVILLO MD 04/21/23 Pantoprazole Sodium Sesquihydr (Protonix) 40 Mg Tab, 40 MG PO DAILY, #30 TAB Prov:VAL NGO MD 06/04/22 Cholecalciferol (VITAMIN D3) 5,000 Unit Tab, 5000 UNIT PO DAILY for 30 Days, #30 TAB Prov:ROSALEE WICK MD 08/23/21 Reported Medications Fenofibrate (Fenofibrate) 160 Mg Tab, 1 TAB PO DAILY 12/22/23 Information Source: Patient Mode of Arrival: EMS Past Medical History PAST MEDICAL HISTORY: High Lipids, HTN, Liver, PE, Schizophrenia Surgical History: Denies all surgeries Family History Family History: Family hx of heart paco Social History Smoker: Non-Smoker Alcohol: Heavy Drugs: Marijuana Lives In: Home Gastrointestinal: reports: abdominal pain All Other Systems: Reviewed and Negative Physical Exam General Appearance: No Apparent Distress, Normal HEENT: Normal ENT Inspection, Pharynx Normal, TMs Normal Neck: Full Range of Motion, Non-Tender, Normal, Normal Inspection Respiratory: Chest Non-Tender, Lungs Clear, No Accessory Muscle Use, No Respiratory Distress, Normal Breath Sounds Cardiovascular: No Edema, No JVD, No Murmur, No Gallop, Normal Peripheral Pulses, Regular Rate/Rhythm Breast Exam: Deferred Gastrointestinal: Epigastric, No Organomegaly, No Pulsatile Mass, Normal Bowel Sounds, Soft, Tenderness Genitalia: Deferred Pelvic: Deferred Rectal: Deferred Extremities: No calf tenderness, Normal capillary refill, Normal inspection, Normal range of motion, Non-tender, No pedal edema Musculoskeletal : Apperance: Normal Neurologic: Alert, care program resident II-XII nml as Tested, No Motor Deficits, Normal Affect, Normal Mood, No Sensory Deficits Cerebellar Function: NOT DONE Reflexes: NOT DONE Skin: Dry, Normal Color, Warm Lymphatic: No Adenopathy Was a procedure done? Was a procedure done?: No Differential Dx Considerations may include: pancreatitis, gastritis, alcohol hepatitis X-Ray, Labs, Meds, VS Vital Signs Date Time Temp Pulse Resp B/P (MAP) Pulse Ox O2 Delivery O2 Flow Rate FiO2 11/02/24 04:25 118 11/02/24 03:24 100.4 112 20 180/90 (120) 98 11/02/24 03:21 111 Lab Test 11/02/24 05:05 11/02/24 04:09 Range/Units Troponin I High Sensitivity Pending 8 </=54 ng/L White Blood Count 12.8 H 4.4-10.8 10^3/uL Red Blood Count 4.36 L 4.5-5.90 10^6/uL Hemoglobin 14.7 13.5-17.5 g/dL Hematocrit 42.0 41.0-53.0 % Mean Corpuscular Volume 96.3 80.0-100.0 fL Mean Corpuscular Hemoglobin 33.7 H 28.0-32.0 pg Mean Corpuscular Hemoglobin Concent 35.0 32.0-36.0 g/dL Red Cell Distribution Width 14.2 11.8-14.3 % Platelet Count 231 140-450 10^3/uL Mean Platelet Volume 7.9 6.9-10.8 fL Neutrophils (%) (Auto) 86.1 H 37.0-80.0 % Lymphocytes (%) (Auto) 7.7 L 10.0-50.0 % Monocytes (%) (Auto) 4.7 0.0-12.0 % Eosinophils (%) (Auto) 1.2 0.0-7.0 % Basophils (%) (Auto) 0.3 0.0-2.0 % Neutrophils # (Auto) 11.0 H 1.6-8.6 10 ^3/uL Lymphocytes # (Auto) 1.0 0.4-5.4 10 ^3/uL Monocytes # (Auto) 0.6 0-1.3 10 ^3/uL Eosinophils # (Auto) 0.2 0-0.8 10 ^3/uL Basophils # (Auto) 0 0-0.2 10 ^3/uL Nucleated Red Blood Cells 0.0 % Prothrombin Time 11.7 9.3-11.8 sec Prothrombin Time INR 1.11 0.9-1.15 Activated Partial Thromboplast Time 29.2 24.5-34.5 SEC Sodium Level 136 136-145 mmol/L Potassium Level 3.8 3.5-5.1 mmol/L Chloride Level 101 98-107 mmol/L Carbon Dioxide Level 24 20-31 mmol/L Anion Gap 11 5-15 Blood Urea Nitrogen 15 9-23 mg/dL Creatinine 1.16 0.700-1.30 mg/dL Glomerular Filtration Rate Calc 70 >90 mL/min BUN/Creatinine Ratio 12.9 10.0-20.0 Serum Glucose 110 H 74-106 mg/dL Calcium Level 11.4 H 8.7-10.4 mg/dL Magnesium Level 1.3 L 1.6-2.6 mg/dL Total Bilirubin 1.8 H 0.2-1.0 mg/dL Aspartate Amino Transferase (AST) 63 H 13-40 U/L Alanine Aminotransferase (ALT) 76 H 7-40 U/L Alkaline Phosphatase 121 H 46-116 U/L B-Type Natriuretic Peptide 64.19 0-100 pg/mL Total Protein 7.6 5.7-8.2 g/dL Albumin 4.5 3.2-4.8 g/dL Lipase 251 H 12-53 U/L Time of 1ST Reevaluation: 05:40 Reevaluation 1ST: Unchanged Patient Education/Counseling: Diagnosis, Treatment Family Education/Counseling: No Family Present Departure 1 Departure Time of Disposition: 05:40 (Patient presented with abdominal pain that was concerning for possible appendicits, gastritis, cholecystitis, colitis, gastroenteritis, sbo, or orther possible surgical emergency. Data: 1. I ordered and reviewed the result of at least 3 labs including a CBC, BMP, and Urinalysis. 2. I independently interpreted the following tests: Chest x-ray which is benign .Risk:This patient has a high risk of morbidity due to further diagnostic testing or treatment and may suffer from an acute abdominal process disorder. Workup reveals pancreatitis and patient should be admitted for further workup. and possible expert consultation. ) Impression: Primary Impression: Acute pancreatitis Qualified Codes: K85.20 - Alcohol induced acute pancreatitis without necrosis or infection Additional Impressions: Acute chest pain Nausea and vomiting Qualified Codes: R11.12 - Projectile vomiting Disposition: ADMITTED INPATIENT Admit to: Med Surg Condition: Serious Critical Care Note Critical Care Time?: No Stability Stability form required: No Heart Score Heart Score: Heart Score Response (Comments) Value History N/A 0 EKG N/A 0 Age N/A 0 Risk Factors N/A 0 Troponin N/A 0 Total 0 JÚNIOR NAVARRO MD Nov 02, 2024 05:42
--- NOTE | 2024-11-02 06:09 | ECG ---
[facility] Test Date: 2024-11-02 Test Time: 03:21:32 Pat Name: RAMÍREZ WYLIE Department: ed Room: 0298T Gender: M Information Systems Professor: juarez : 1960 Requested By: JEFFREY BAEZ Order Number: [id number] Reading MD: Jesús Lema Measurements Intervals [place] Rate: 111 P: 55 TN: 177 QRS: 34 QRSD: 93 T: 65 QT: 344 QTc: 468 Interpretive Statements Sinus tachycardia Electronically Signed On 11-03-2024 16:17:27 PST by Jesús Lema Please click the below link to view image of tracing.
--- NOTE | 2024-11-02 06:16 | ECG ---
[facility] Test Date: 2024-11-02 Test Time: 06:14:49 Pat Name: RAMÍREZ WYLIE Department: ED Room: 0298T Gender: M Home Health Speech Therapist: HEIDY : 1960 Requested By: JEFFREY BAEZ Order Number: [id number] Reading MD: Jesús Lema Measurements Intervals [place] Rate: 112 P: 47 [place]: 174 QRS: 30 QRSD: 94 T: 32 QT: 332 QTc: 453 Interpretive Statements Sinus tachycardia Multiple ventricular premature complexes Low voltage, precordial leads Probable anteroseptal infarct, old Borderline ST depression, lateral leads Electronically Signed On 11-03-2024 16:23:26 PST by Jesús Lema Please click the below link to view image of tracing.
--- NOTE | 2024-11-02 06:49 | DVHHP2 ---
History of Present Illness Reason for Visit: Chest pain History of Present Illness Quinn Kofi C this is a 64-year-old male with past medical history of hyperlipidemia, hypertension, PE, schizo, and liver cirrhosis who presents with chest pain, 8/10 epigastric pain x3 days with nausea and vomiting. Patient states that he is compliant with all his medications. Patient denies shortness of breath, diarrhea, chills, and back pain. Cardiovascular: HTN, hyperipidemia Hepatobiliary: Cirrhosis Past Medical History LLE DVT, schizo, pancreatitis Past Surgical History: None Family History: DM Smoke: Quit ALCOHOL: heavy Drugs: Marijuana Lives: with Family Domestic Violence: Neg Review of Systems Constitutional: Yes: Fever; No: Chills, Sweats, Weakness, Malaise, Other Eyes: No: Pain, Vision change, Conjunctivae inflammation, Eyelid inflammation, Other, Redness ENT: No: Ear pain, Ear discharge, Nose pain, Nose discharge, Nose congestion, Mouth pain, Mouth swelling, Throat pain, Throat swelling, Other Respiratory: No: Cough, Dry, Shortness of breath, SOB with excertion, Wheezing, Hemoptysis, Pleuritic Pain, Sputum, Wheezing, Other Cardiovascular: Chest Pain Gastrointestinal: Nausea, Vomiting, Abdominal Pain; No: Diarrhea, Constipation, Melena, Hematochezia, Other Genitourinary: No Dysuria, No Frequency, No Incontinence, No Hematuria, No Retention, No Other Musculoskeletal: No: other, neck pain, shoulder pain, arm pain, back pain, hand pain, leg pain, foot pain Skin: No: Rash, Lesions, Jaundice, Bruising, Other Neurological: No: Weakness, Numbness, Incoordination, Change in speech, Confusion, Seizures, Other Allergies: Coded Allergies: Sulfa Antibiotics (Verified Allergy, Unknown, 08/19/21) Exam Vital Signs Vital Signs Date Time Temp Pulse Resp B/P (MAP) Pulse Ox O2 Delivery O2 Flow Rate FiO2 11/02/24 06:14 112 11/02/24 03:24 100.4 20 180/90 (120) 98 General Appearance: Alert, Oriented X3, Cooperative, No acute distress HEENT: Atraumatic, PERRLA, Mucous membr. moist/pink Respiratory: Clear to auscultation, Normal air movement Cardiovascular: Regular rate, Normal S1, Normal S2, No murmurs Abdominal: Normal bowel sounds Extremities: No clubbing, No cyanosis, No edema, Normal pulses, No tenderness/swelling Skin: No rashes, No breakdown, No significant lesion Neuro: Normal gait, Normal speech, Strength at 5/5 X4 ext, Normal tone, Sensation intact Psych/Mental Status: Mental status NL, Mood NL Labs/Xrays Labs Test 11/02/24 05:05 11/02/24 04:09 Range/Units Troponin I High Sensitivity 8 </=54 ng/L White Blood Count 12.8 H 4.4-10.8 10^3/uL Red Blood Count 4.36 L 4.5-5.90 10^6/uL Hemoglobin 14.7 13.5-17.5 g/dL Hematocrit 42.0 41.0-53.0 % Mean Corpuscular Volume 96.3 80.0-100.0 fL Mean Corpuscular Hemoglobin 33.7 H 28.0-32.0 pg Mean Corpuscular Hemoglobin Concent 35.0 32.0-36.0 g/dL Red Cell Distribution Width 14.2 11.8-14.3 % Platelet Count 231 140-450 10^3/uL Mean Platelet Volume 7.9 6.9-10.8 fL Neutrophils (%) (Auto) 86.1 H 37.0-80.0 % Lymphocytes (%) (Auto) 7.7 L 10.0-50.0 % Monocytes (%) (Auto) 4.7 0.0-12.0 % Eosinophils (%) (Auto) 1.2 0.0-7.0 % Basophils (%) (Auto) 0.3 0.0-2.0 % Neutrophils # (Auto) 11.0 H 1.6-8.6 10 ^3/uL Lymphocytes # (Auto) 1.0 0.4-5.4 10 ^3/uL Monocytes # (Auto) 0.6 0-1.3 10 ^3/uL Eosinophils # (Auto) 0.2 0-0.8 10 ^3/uL Basophils # (Auto) 0 0-0.2 10 ^3/uL Nucleated Red Blood Cells 0.0 % Prothrombin Time 11.7 9.3-11.8 sec Prothrombin Time INR 1.11 0.9-1.15 Activated Partial Thromboplast Time 29.2 24.5-34.5 SEC Sodium Level 136 136-145 mmol/L Potassium Level 3.8 3.5-5.1 mmol/L Chloride Level 101 98-107 mmol/L Carbon Dioxide Level 24 20-31 mmol/L Anion Gap 11 5-15 Blood Urea Nitrogen 15 9-23 mg/dL Creatinine 1.16 0.700-1.30 mg/dL Glomerular Filtration Rate Calc 70 >90 mL/min BUN/Creatinine Ratio 12.9 10.0-20.0 Serum Glucose 110 H 74-106 mg/dL Calcium Level 11.4 H 8.7-10.4 mg/dL Magnesium Level 1.3 L 1.6-2.6 mg/dL Total Bilirubin 1.8 H 0.2-1.0 mg/dL Aspartate Amino Transferase (AST) 63 H 13-40 U/L Alanine Aminotransferase (ALT) 76 H 7-40 U/L Alkaline Phosphatase 121 H 46-116 U/L B-Type Natriuretic Peptide 64.19 0-100 pg/mL Total Protein 7.6 5.7-8.2 g/dL Albumin 4.5 3.2-4.8 g/dL Lipase 251 H 12-53 U/L CHEST RADIOGRAPH Indication: CHEST PAIN Technique: Single frontal view of the chest was obtained Comparison: XY CHEST PORTABLE on DOS: 05/31/24 FINDINGS: Lines and Tubes: None Lungs: No focal consolidation. Pleura: No effusion. No pneumothorax. Cardiomediastinal contours: Unremarkable Bones: No acute osseous abnormality. IMPRESSION: 1. No acute cardiopulmonary disease. Exam: CT CT AB PEL WO CON-NO ORAL OR IV History: R/O Pancreatitis Findings: Evaluation of vasculature and solid organs is limited due to lack of intravenous contrast use. Lung Bases: Bibasilar atelectasis. Visualized portions of the heart and pericardium are unremarkable. Liver: The liver is normal in size. 1.6 cm lesion in the right hepatic lobe.. Diffusely hypoattenuating liver parenchyma consistent with hepatic steatosis. Gallbladder and Biliary Tree: The gallbladder is unremarkable. No intrahepatic or extrahepatic biliary ductal dilatation. Spleen: Unremarkable Pancreas: Peripancreatic fat stranding. Adrenal Glands: Unremarkable Kidneys: Kidneys are unremarkable without calculi or hydronephrosis. GI tract: The stomach is grossly normal in appearance. No evidence of small bowel wall thickening or abnormal dilatation to suggest bowel obstruction. The colon is unremarkable. The appendix is visualized and is normal. Peritoneum/mesentery/retroperitoneum. No evidence of free intraperitoneal air. No ascites or fluid collection. No evidence of suspicious lymphadenopathy. Abdominal Wall: Unremarkable. Vasculature: The visualized abdominal aorta is normal in size and caliber. Evaluation of abdominal and pelvic vessels is limited due to lack of intravenous contrast. Left external iliac stent. Urinary Bladder: Grossly unremarkable for degree of distention. Pelvic Organs: Unremarkable Musculoskeletal: No aggressive focal bony lesions, acute fractures or dislocation. IMPRESSION: 1. Acute interstitial pancreatitis. No fluid collection. 2. Hepatic steatosis. 3. Stable 1.6 cm posterior right hepatic lobe lesion. Assessment/Plan Assessment/Plan Assessment: Rule out ACS with probable sepsis Pancreatitis Hepatic steatosis Hypertension IZZY on CKD Transaminitis History of hyperlipidemia Hypertension LLE DVT Schizo Liver cirrhosis Plan: Admit to tele IV fluids Pain management IV antibiotics Antiemetics EKG noted GI ppx Chest x-ray noted CT A/P noted Antihypertensives Lipid panel Urine drug screen Diet as tolerated Monitor labs Home meds reconciled Plan discussed with: Patient Date of Service: Nov 02, 2024 Billing Provider: LORAINE SOLANO Common Visit Codes: 43686-[id number] INP/OBS CARE (MOD) LORAINE SOLANO Nov 02, 2024 06:49
[2024-11-02] MEDS: SODIUM CHLORIDE 0.9% 1,000 ML IV ONE (06:52)
[2024-11-02] MEDS: cefTRIAXone 1GM/50ML D5W 50 ML IV ONE (07:19)
[2024-11-02] MEDS: ONDANSETRON HCL 4 MG/2 ML VIAL IV ONE (07:19)
[2024-11-02] MEDS: PANTOPRAZOLE 40 MG/10 ML VIAL INJ IV ONE (07:20)
[2024-11-02] MEDS: MORPHINE SULFATE 4 MG/ML SYR/VIAL IV ONE (07:20)
[2024-11-02 07:25] VITALS: PULSE 107; RESP 18; O2SAT 98
[2024-11-02] MEDS: cefTRIAXone 1GM/50ML D5W 50 ML IV SCH (08:00)
[2024-11-02] MEDS ORDERED: ACETAMINOPHEN 325 MG TAB PO PRN (08:15)
[2024-11-02] MEDS ORDERED: MORPHINE SULFATE 4 MG/ML SYR/VIAL IV PRN (08:15)
[2024-11-02] MEDS ORDERED: LORazepam 0.5 MG TAB PO PRN (08:15)
[2024-11-02] MEDS ORDERED: ONDANSETRON HCL 4 MG/2 ML VIAL IV PRN (08:15)
--- NOTE | 2024-11-02 09:53 | DVH ---
Exam: CT CT AB PEL WO CON-NO ORAL OR IV History: R/O Pancreatitis Comparison Study: CT scan of the abdomen pelvis dated December 22, 2023 Technique: Multidetector spiral CT of the abdomen and pelvis was performed from lung bases to pubic s ymphysis. Imaging was performed without intravenous contrast. Coronal and sagittal multiplanar refor mats were obtained from the axial data set by the technologist. Radiation Dose : 1. Abdomen/Pelvis: CTDIvol 24.5 mGy, DLP 1426.1 mGy*cm. Findings: Evaluation of vasculature and solid organs is limited due to lack of intravenous contrast use. Lung Bases: Bibasilar atelectasis. Visualized portions of the heart and pericardium are unremarkable. Liver: The liver is normal in size. 1.6 cm lesion in the right hepatic lobe.. Diffusely hypoattenuat ing liver parenchyma consistent with hepatic steatosis. Gallbladder and Biliary Tree: The gallbladder is unremarkable. No intrahepatic or extrahepatic bilia ry ductal dilatation. Spleen: Unremarkable Pancreas: Peripancreatic fat stranding. Adrenal Glands: Unremarkable Kidneys: Kidneys are unremarkable without calculi or hydronephrosis. GI tract: The stomach is grossly normal in appearance. No evidence of small bowel wall thickening or abnormal dilatation to suggest bowel obstruction. The colon is unremarkable. The appendix is visual ized and is normal. Peritoneum/mesentery/retroperitoneum. No evidence of free intraperitoneal air. No ascites or fluid co llection. No evidence of suspicious lymphadenopathy. Abdominal Wall: Unremarkable. Vasculature: The visualized abdominal aorta is normal in size and caliber. Evaluation of abdominal a nd pelvic vessels is limited due to lack of intravenous contrast. Left external iliac stent. Urinary Bladder: Grossly unremarkable for degree of distention. Pelvic Organs: Unremarkable Musculoskeletal: No aggressive focal bony lesions, acute fractures or dislocation. IMPRESSION: 1. Acute interstitial pancreatitis. No fluid collection. 2. Hepatic steatosis. 3. Stable 1.6 cm posterior right hepatic lobe lesion.
[2024-11-02] MEDS: DOCUSATE SOD 100 MG CAP PO SCH (10:00)
[2024-11-02] MEDS: ASPirin 81 mg TAB PO SCH (10:00)
[2024-11-02] MEDS: SODIUM CHLORIDE 0.9% 1,000 ML IV SCH ×2 (10:11→13:48)
[2024-11-02] MEDS ORDERED: AMLO1TAB22 PO (11:34)
[2024-11-02] MEDS: ERGOCALCIFEROL 50,000 UNIT(1.25MG) CAP PO SCH (14:45)
[2024-11-02] MEDS: metroNIDAZOLE 500MG/100ML 100 ML IV SCH (14:46)
[2024-11-02] MEDS: MORPHINE SULFATE INJ 2 MG/ml SYRG IV PRN (14:52)
[2024-11-02] MEDS: NITROGLYCERIN 0.4 MG SL TAB SL PRN (19:03)
[2024-11-02 21:30] VITALS: BP 142/82; PULSE 107; RESP 18; TEMP 100.2; O2SAT 97
[2024-11-02 21:43] VITALS: BP 142/82; PULSE 107; RESP 18; TEMP 100.2; O2SAT 97
[2024-11-02 22:00] VITALS: BP 145/79; PULSE 103; RESP 18; TEMP 98.8; O2SAT 94
[2024-11-03] VITALS (8 sets, daily range): BP systolic 134–160; BP diastolic 77–93; PULSE 82–109; RESP 16–20; TEMP 98.2–99.2; O2SAT 92–99
[2024-11-03] MEDS: HYDROcodone-ACET 7.5/325MG TAB PO PRN (02:57)
[2024-11-03 06:52] LABS: Basophils # (auto) 0 10 ^3/uL (0-0.2); Basophils % (auto) 0.5 % (0.0-2.0); Eosinophils # (auto) 0.5 10 ^3/uL (0-0.8); Hematocrit 35.5 % (41.0-53.0); Hemoglobin 12.6 g/dL (13.5-17.5); Lymphocytes # (auto) 1.3 10 ^3/uL (0.4-5.4); Lymphocytes % (auto) 14.2 % (10.0-50.0); Mean Corpuscular Hemoglobin 34.3 pg (28.0-32.0); Mean Corpuscular Hgb Conc. 35.6 g/dL (32.0-36.0); Mean Corpuscular Volume 96.6 fL (80.0-100.0); Monocytes # (auto) 0.6 10 ^3/uL (0-1.3); Monocytes % (auto) 7.2 % (0.0-12.0); Neutrophils # (auto) 6.4 10 ^3/uL (1.6-8.6); Neutrophils % (auto) 72.1 % (37.0-80.0); Platelet Count (auto) 147 10^3/uL (140-450); Red Blood Cells 3.67 10^6/uL (4.5-5.90); Red Cell Distribution Width 14.2 % (11.8-14.3); White Blood Cell 8.8 10^3/uL (4.4-10.8)
[2024-11-03 07:02] LABS: Albumin 3.9 g/dL (3.2-4.8); Alkaline Phosphatase 98 U/L (46-116); Anion Gap 11 (5-15); Aspartate Aminotransferase 33 U/L (13-40); BUN/Creatinine Ratio 18.2 (10.0-20.0); Blood Urea Nitrogen 16 mg/dL (9-23); Calcium 9.7 mg/dL (8.7-10.4); Carbon Dioxide 22 mmol/L (20-31); Chloride 103 mmol/L (98-107); Glucose 82 mg/dL (74-106)
[2024-11-03 07:03] LABS: Bilirubin, Total 1.1 mg/dL (0.2-1.0); Total Protein 6.5 g/dL (5.7-8.2)
[2024-11-03 07:04] LABS: Alanine Aminotransferase 46 U/L (7-40); Lipase 104 U/L (12-53); Potassium 3.1 mmol/L (3.5-5.1); Sodium 136 mmol/L (136-145)
[2024-11-03 07:22] LABS: LDL Cholesterol 76 mg/dL (< 100)
[2024-11-03 07:23] LABS: Cholesterol 155 mg/dL (< 200); HDL Cholesterol 51 mg/dL (40-59)
[2024-11-03 07:30] LABS: Triglycerides 198 mg/dL (< 150)
[2024-11-03] MEDS: MULTIPLE VITAMIN TAB PO SCH (09:37)
[2024-11-03] MEDS: MAGNESIUM OXIDE 400 MG TAB PO SCH (09:37)
[2024-11-03] MEDS: PANTOPRAZOLE 40 MG TAB PO SCH (09:38)
[2024-11-03] MEDS: POTASSIUM CHL 10 Meq TABLET PO SCH (09:38)
[2024-11-03] MEDS: CHOLECALCIFEROL (VITD3) 1,000UNIT=25mCg TAB PO SCH (09:39)
[2024-11-03] MEDS: FOLIC ACID 1 MG TAB PO SCH (09:39)
[2024-11-03] MEDS: LOSARTAN POTASSIUM 25 MG TAB PO SCH (09:45)
[2024-11-03] MEDS: NIFEdipine ER 30 MG TAB PO SCH (09:45)
[2024-11-03] MEDS ORDERED: PATIENTS OWN MEDICATION (Cholecalciferol (Vitamin D3) 5,000 UNIT) PO SCH (10:00)
[2024-11-03] MEDS ORDERED: PATIENTS OWN MEDICATION (Magnesium Oxide 1 TAB) PO SCH (10:00)
[2024-11-03] MEDS ORDERED: PATIENTS OWN MEDICATION (Potassium Chloride (Potassium Chloride Cr) 1 TAB) PO SCH (10:00)
[2024-11-03] MEDS ORDERED: PATIENTS OWN MEDICATION (Folic Acid 1 MG) PO SCH (10:00)
[2024-11-03] MEDS: Fenofibrate 160 MG PO SCH (10:00)
[2024-11-03] MEDS: POTASSIUM CHL 20 Meq TABLET PO ONE (10:53)
[2024-11-03] MEDS: LACTATED RINGER'S 1,000 ML IV SCH (11:30)
[2024-11-03] MEDS: LACTATED RINGER'S 1,000 ML IV ONE (12:18)
[2024-11-03] MEDS ORDERED: FOLIC ACID 1 MG TAB PO ONE (15:45)
[2024-11-03] MEDS: THIAMINE 100mg/ml INJ (200mg/2ml VIAL) IV ONE (16:30)
[2024-11-03] MEDS: MORPHINE SULFATE INJ 2 MG/ml SYRG IV PRN (17:35)
--- NOTE | 2024-11-03 17:58 | DVHPNRES ---
Progress Note Date Seen: Nov 03, 2024 Resident Creating Document: FRANCES SEXTON RESIDENT Medical Necessity Reason Pt with a Central, PICC or Fol: No Medical Necessity Reason Epigastric pain that radiates down history of pancreatitis Subjective Review of Systems This is a 64-year-old male with past medical history of hyperlipidemia, pancreatitis, hypertension, PE, schizophrenia, and ? liver cirrhosis who presented to the ED with epigastric pain for 3 days. Pain is rated 8/10 with an associated nausea and vomiting and radiates down to the mid abdomen. He denied any excessive use of NSAIDs, however he admits to excessive use of alcohol and smoking in the past. But none currently. Patient denied eating any street food, denied diarrhea but he did have nausea and vomiting. There was no history of abdominal surgeries. His only surgery was thrombectomy for DVT of the left leg. Patient admits to complying with all his medications. Constitutional: Denies fever no chills no feeling of malaise HEENT: Denies headache, ear pain, ear discharges, conjunctivitis, nasal discharge throat pain Cardiovascular: Denies chest pain, palpitation, orthopnea, PND, or pedal edema Respiratory: Denies shortness of breath, cough cough, sputum production, hemoptysis, GI: abdominal pain, nausea, vomiting; No diarrhea, hematemesis, hematochezia, : Denies frequency, urgency, hematuria, Endocrine: Denies unintentional weight gain or weight loss, feeling of hot flashes, Jaspreet: Denies easy bruising, bleeding disorders, epistaxis Musculoskeletal: Denies joint pains, muscle aches Psych: No evidence of depression, ronny, suicidal ideation Past medical history: gallstone pancreatitis (2021), hypertension, PE, schizo, and liver cirrhosis Past surgical history: thrombectomy for DVT of the left leg, Social history: 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, 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 Family history: Heart disease in the family, diabetes in the mother, father's history unknown Objective vital signs Vital Sign Date Time Temp Pulse Resp B/P (MAP) Pulse Ox O2 Delivery O2 Flow Rate FiO2 11/03/24 17:35 89 18 147/78 11/03/24 17:06 99.0 99 99.0 11/03/24 08:00 Room Air* 0 21 Total Intake and Output 11/02/24 11/02/24 11/03/24 15:00 23:00 07:00 Intake Total 150 ml 100 ml 1200 ml Balance 150 ml 100 ml 1200 ml medications Current Medications Medications Dose Ordered Sig/Emmie Route Start Time Stop Time Status Last Admin Dose Admin Ceftriaxone Sodium 50 ml @ 100 mls/hr DAILY@0800 IV 11/02/24 08:00 Aspirin 81 mg DAILY PO 11/02/24 10:00 11/03/24 09:39 81 MG Acetaminophen 650 mg Q6HP PRN PO 11/02/24 08:15 Lorazepam 0.5 mg Q6HP PRN PO 11/02/24 08:15 Docusate Sodium 100 mg DAILY PO 11/02/24 10:00 11/03/24 09:39 100 MG Ondansetron HCl 4 mg Q4HP PRN IV 11/02/24 08:15 Nitroglycerin 0.4 mg Q5MINP PRN SL 11/02/24 08:15 11/02/24 19:03 0.4 MG Morphine Sulfate 2 mg Q30M PRN IV 11/02/24 08:15 11/02/24 19:18 2 MG Ergocalciferol 50,000 unit Q7D PO 11/02/24 11:45 11/02/24 14:45 50,000 UNIT Losartan Potassium 25 mg DAILY PO 11/03/24 10:00 11/03/24 09:45 25 MG Multivitamins 1 tab DAILY PO 11/03/24 10:00 11/03/24 09:37 1 TAB Nifedipine 60 mg DAILY PO 11/03/24 10:00 11/03/24 09:45 60 MG Pantoprazole Sodium 40 mg DAILY PO 11/03/24 10:00 11/03/24 09:38 40 MG Patient Own Medication 5,000 unit DAILY PO 11/03/24 10:00 UNV Patient Own Medication 1 tab DAILY PO 11/03/24 10:00 Patient Own Medication 1 mg DAILY PO 11/03/24 10:00 UNV Patient Own Medication 1 tab DAILY PO 11/03/24 10:00 UNV Patient Own Medication 1 tab DAILY PO 11/03/24 10:00 UNV Patient Own Medication 1 tab QPM PO 11/02/24 18:00 11/03/24 17:32 1 TAB Metronidazole 100 ml @ 100 mls/hr Q8HR IV 11/02/24 14:00 11/03/24 14:30 100 MLS/HR Cholecalciferol 5,000 unit DAILY PO 11/03/24 10:00 11/03/24 09:39 5,000 UNIT Magnesium Oxide 400 mg DAILY PO 11/03/24 10:00 11/03/24 09:37 400 MG Potassium Chloride 10 meq DAILY PO 11/03/24 10:00 11/03/24 09:38 10 MEQ Acetaminophen/ Hydrocodone Bitart 1 tab Q6HP PRN PO 11/03/24 02:15 Hold 11/03/24 09:42 1 TAB Morphine Sulfate 1 mg Q4HP PRN IV 11/03/24 10:00 11/03/24 17:35 1 MG Lactated Ringer's 1,000 ml @ 150 mls/hr Q6H40M IV 11/03/24 11:30 Folic Acid 1 mg DAILY PO 11/04/24 10:00 Thiamine HCl 100 mg DAILY PO 11/04/24 10:00 Examination General examination- Not in acute distress, walking, talking HEENT: PEERLA, no acute nasal discharge Chest: S1-S2 audible, rate and rhythm regular, no murmur Lung: CTAB, no wheeze or rhonchi Abdomen: distend, BS+,tenderness, no organomegaly Musculoskeletal: no acute joint swelling or tenderness Lower extremity: no leg edema Neurological: cranial nerves intact, no acute dysarthria or dysphagia Psychiatry-- Normal mood and affect Skin- no acute rash or purpura laboratory and microbiology Laboratory Tests 11/03/24 05:39 Test 11/03/24 05:39 Range/Units Serum Glucose 82 74-106 mg/dL Problem List/Assessment/Plan Problem List/Assessment/Plan Possible Sepsis -->Wbc: 12.8--> 8.0 --> Temp: 100.4 --> HR: 111, 118 --> Ceftriaxone --> Repeat CBC in the AM Recurrent Pancreatitis --> Lipase 251--> 104 --> History of gallstone pancraetitis 2021 ( per medical record) --> Clear liquid diet History of DVT --> s/p thrombectomy --> Completed anticoagulation regime --> Not on any anticoagulation at this time Hypertension --> Continue patient's home medication Hepatic steatosis Transaminitis History of hyperlipidemia Schizophrenia --> No active incident at this time --> Continue maintenance medication Obesity --> BMI: 37.7 --> advised lifestyle modification Code status: Full Goal of care discussed for more than 35 minutes Case and plan discussed with Dr. Marte Plan discussed with: Patient My Orders My Orders Orders - FRANCES SEXTON Procedure Category Date Status Time Complete Blood Count LAB 11/04/24 Verified 04:00 Urinalysis LAB 11/03/24 Logged 08:15 Npo Except For GILBERTO 11/03/24 In Process Medications 09:53 Dietary Evaluation Review Comments: Continue current plan of care Expected Outcomes/Goals: F/U in 3-5 days Date of Service: Nov 03, 2024 Billing Provider: LEVON VANEGAS MD Common Visit Codes: 65829-[id number] INP/OBS CARE(HIGH) FRANCES SEXTON Nov 03, 2024 17:58 LEVON VANEGAS MD Nov 07, 2024 23:23
[2024-11-04 01:21] VITALS: BP 148/82; PULSE 94; RESP 17; TEMP 98.5; O2SAT 93
[2024-11-04 05:00] VITALS: BP 141/73; PULSE 91; RESP 19; TEMP 98.4; O2SAT 92
[2024-11-04 07:25] LABS: Basophils # (auto) 0 10 ^3/uL (0-0.2); Eosinophils # (auto) 0.4 10 ^3/uL (0-0.8); Hemoglobin 13.2 g/dL (13.5-17.5); Monocytes # (auto) 0.6 10 ^3/uL (0-1.3); Neutrophils # (auto) 4.9 10 ^3/uL (1.6-8.6)
[2024-11-04 07:29] LABS: Basophils % (auto) 0.7 % (0.0-2.0); Eosinophils % (auto) 5.1 % (0.0-7.0); Hematocrit 36.5 % (41.0-53.0); Lymphocytes % (auto) 14.3 % (10.0-50.0); Mean Corpuscular Hemoglobin 34.8 pg (28.0-32.0); Mean Corpuscular Hgb Conc. 36.2 g/dL (32.0-36.0); Mean Corpuscular Volume 96.2 fL (80.0-100.0); Monocytes % (auto) 8.4 % (0.0-12.0); Neutrophils % (auto) 71.5 % (37.0-80.0); Nucleated Red Blood Cells % 0.1 %; Platelet Count (auto) 160 10^3/uL (140-450); Red Blood Cells 3.79 10^6/uL (4.5-5.90); White Blood Cell 6.9 10^3/uL (4.4-10.8)
[2024-11-04 07:57] LABS: Albumin 3.9 g/dL (3.2-4.8); Alkaline Phosphatase 102 U/L (46-116); Anion Gap 11 (5-15); Aspartate Aminotransferase 27 U/L (13-40); BUN/Creatinine Ratio 12.8 (10.0-20.0); Blood Urea Nitrogen 10 mg/dL (9-23); Calcium 9.3 mg/dL (8.7-10.4); Carbon Dioxide 22 mmol/L (20-31); Chloride 103 mmol/L (98-107); Glucose 87 mg/dL (74-106); Sodium 136 mmol/L (136-145)
[2024-11-04 07:58] LABS: Bilirubin, Total 0.7 mg/dL (0.2-1.0); Total Protein 6.6 g/dL (5.7-8.2)
[2024-11-04 08:00] VITALS: PULSE 81; PULSE 87; RESP 20
[2024-11-04 08:05] LABS: Alanine Aminotransferase 44 U/L (7-40); Potassium 3.2 mmol/L (3.5-5.1)
[2024-11-04 09:00] VITALS: BP 152/83; PULSE 95; RESP 19; TEMP 98; O2SAT 96
[2024-11-04] MEDS: THIAMINE HCL 100 MG TAB PO SCH (09:20)
[2024-11-04] MEDS: FOLIC ACID 1 MG TAB PO SCH (09:21)
[2024-11-04 10:57] LABS: Hepatitis B Surface Antigen Negative (Negative); Hepatitis C Antibody Negative (Negative)
[2024-11-04] MEDS: MAGNESIUM SULFATE 1GM/100ML 100 ML IV SCH (11:00)
[2024-11-04] MEDS ORDERED: MAGNESIUM SULFATE 1GM/100ML 100 ML IV ONE (11:45)
[2024-11-04] MEDS: POTASSIUM CHL 20 Meq TABLET PO ONE (12:03)
[2024-11-04] MEDS ORDERED: ZOFR4T PO ×2 (12:04→15:31)
[2024-11-04 13:00] VITALS: BP 151/85; PULSE 87; RESP 24; TEMP 98.1; O2SAT 97
[2024-11-04] MEDS ORDERED: PANT40TA2 PO (15:31)
[2024-11-04] MEDS ORDERED: HYDR-4902 PO (15:31)
[2024-11-04] MEDS ORDERED: PANT40T PO (15:42)
[2024-11-04 17:00] VITALS: BP 127/82; PULSE 96; RESP 22; TEMP 98; O2SAT 89
--- NOTE | 2024-11-04 18:06 | DVHDSRES ---
Discharge Summary Date of Admission Resident Creating Document: FRANCES SEXTON RESIDENT Nov 02, 2024 at 08:09 Date of Discharge: Nov 04, 2024 Admitting Diagnosis recurrent pancreatitis Labs/Diagnostic Data: Laboratory Results Test 11/04/24 06:55 11/03/24 05:39 11/02/24 06:59 11/02/24 04:09 White Blood Count 6.9 10^3/uL (4.4-10.8) Red Blood Count 3.79 10^6/uL (4.5-5.90) Hemoglobin 13.2 g/dL (13.5-17.5) Hematocrit 36.5 % (41.0-53.0) Mean Corpuscular Volume 96.2 fL (80.0-100.0) Mean Corpuscular Hemoglobin 34.8 pg (28.0-32.0) Mean Corpuscular Hemoglobin Concent 36.2 g/dL (32.0-36.0) Red Cell Distribution Width 14.0 % (11.8-14.3) Platelet Count 160 10^3/uL (140-450) Mean Platelet Volume 8.2 fL (6.9-10.8) Neutrophils (%) (Auto) 71.5 % (37.0-80.0) Lymphocytes (%) (Auto) 14.3 % (10.0-50.0) Monocytes (%) (Auto) 8.4 % (0.0-12.0) Eosinophils (%) (Auto) 5.1 % (0.0-7.0) Basophils (%) (Auto) 0.7 % (0.0-2.0) Neutrophils # (Auto) 4.9 10 ^3/uL (1.6-8.6) Lymphocytes # (Auto) 1.0 10 ^3/uL (0.4-5.4) Monocytes # (Auto) 0.6 10 ^3/uL (0-1.3) Eosinophils # (Auto) 0.4 10 ^3/uL (0-0.8) Basophils # (Auto) 0 10 ^3/uL (0-0.2) Nucleated Red Blood Cells 0.1 % Sodium Level 136 mmol/L (136-145) Potassium Level 3.2 mmol/L (3.5-5.1) Chloride Level 103 mmol/L (98-107) Carbon Dioxide Level 22 mmol/L (20-31) Anion Gap 11 (5-15) Blood Urea Nitrogen 10 mg/dL (9-23) Creatinine 0.78 mg/dL (0.700-1.30) Glomerular Filtration Rate Calc 100 mL/min (>90) BUN/Creatinine Ratio 12.8 (10.0-20.0) Serum Glucose 87 mg/dL (74-106) Calcium Level 9.3 mg/dL (8.7-10.4) Magnesium Level 1.3 mg/dL (1.6-2.6) Total Bilirubin 0.7 mg/dL (0.2-1.0) Aspartate Amino Transferase (AST) 27 U/L (13-40) Alanine Aminotransferase (ALT) 44 U/L (7-40) Alkaline Phosphatase 102 U/L (46-116) Total Protein 6.6 g/dL (5.7-8.2) Albumin 3.9 g/dL (3.2-4.8) Lactate Dehydrogenase 287 U/L (120-246) Triglycerides Level 198 mg/dL (< 150) Cholesterol Level 155 mg/dL (< 200) LDL Cholesterol 76 mg/dL (< 100) HDL Cholesterol 51 mg/dL (40-59) Lipase 104 U/L (12-53) Plasma/Serum Blood Alcohol < 3.0 mg/dL (<10) Hepatitis B Surface Antigen Negative (Negative) Hepatitis C Antibody Negative (Negative) Troponin I High Sensitivity 6 ng/L (</=54) Prothrombin Time 11.7 sec (9.3-11.8) Prothrombin Time INR 1.11 (0.9-1.15) Activated Partial Thromboplast Time 29.2 SEC (24.5-34.5) B-Type Natriuretic Peptide 64.19 pg/mL (0-100) Other Laboratory Tests 11/04/24 06:55 Brief Hx & Hospital Course: This 64-year-old male with past medical history of hyperlipidemia, pancreatitis, hypertension, history of DVT S/P thrombectomy, schizophrenia, and ? liver cirrhosis presented to the ED with epigastric pain for 3 days. He rated the pain at 8/10 with radiation to the mid abdomen. Pain is associated nausea and vomiting. He denied any excessive use of NSAIDs, however he admits to excessive use of alcohol and smoking in the past. In the ED, his initial vitals were temp: 100.4, pulse: 111,120, and RR: 20 and BP: 180/90. Lab work showed elevated wbc (12.8) and elevated lipase: 250. Chest x-ray did not reveal any acute cardiopulmonary disease. CT abdomen showed Acute interstitial pancreatitis without any fluid collection, Hepatic steatosis and Stable 1.6 cm posterior right hepatic lobe lesion. Examination General examination- Not in acute distress, walking, talking HEENT: PEERLA, no acute nasal discharge Chest: S1-S2 audible, rate and rhythm regular, no murmur Lung: CTAB, no wheeze or rhonchi Abdomen: distend, BS+, IMPROVED tenderness, no organomegaly Musculoskeletal: no acute joint swelling or tenderness Lower extremity: no leg edema Neurological: cranial nerves intact, no acute dysarthria or dysphagia Psychiatry-- Normal mood and affect Skin- no acute rash or purpura Diagnoses Possible Sepsis Recurrent Pancreatitis Mild hypercalemia hypokalemia History of DVT Hypertension Schizophrenia hypokalemia hypomagnesemia Hepatic steatosis From our medical stand point, patient is stable for discharge. Will dischage him home with the following medication: 1. Zofran 2. Pelham 3. Protonix Patient advised to return to the discharge clinic in 7 days and also follow up with his PCP Dr. Vela Discharge plan and post discharge plan discussed with Dr. Marte Operations or Procedures ORDERING PHYSICIAN: LORAINE SOLANO PROCEDURE(s): ABPL - CT AB PEL WO CON-NO ORAL OR IV REASON: R/O Pancreatitis ORDER NUMBER(s): [id number], ACCESSION NUMBER(s): [id number] Exam: CT CT AB PEL WO CON-NO ORAL OR IV History: R/O Pancreatitis Comparison Study: CT scan of the abdomen pelvis dated December 22, 2023 Technique: Multidetector spiral CT of the abdomen and pelvis was performed from lung bases to pubic symphysis. Imaging was performed without intravenous contrast. Coronal and sagittal multiplanar reformats were obtained from the axial data set by the technologist. Radiation Dose : 1. Abdomen/Pelvis: CTDIvol 24.5 mGy, DLP 1426.1 mGy*cm. Findings: Evaluation of vasculature and solid organs is limited due to lack of intravenous contrast use. Lung Bases: Bibasilar atelectasis. Visualized portions of the heart and pericardium are unremarkable. Liver: The liver is normal in size. 1.6 cm lesion in the right hepatic lobe.. Diffusely hypoattenuating liver parenchyma consistent with hepatic steatosis. Gallbladder and Biliary Tree: The gallbladder is unremarkable. No intrahepatic or extrahepatic biliary ductal dilatation. Spleen: Unremarkable Pancreas: Peripancreatic fat stranding. Adrenal Glands: Unremarkable Kidneys: Kidneys are unremarkable without calculi or hydronephrosis. GI tract: The stomach is grossly normal in appearance. No evidence of small bowel wall thickening or abnormal dilatation to suggest bowel obstruction. The colon is unremarkable. The appendix is visualized and is normal. Peritoneum/mesentery/retroperitoneum. No evidence of free intraperitoneal air. No ascites or fluid collection. No evidence of suspicious lymphadenopathy. Abdominal Wall: Unremarkable. Vasculature: The visualized abdominal aorta is normal in size and caliber. Evaluation of abdominal and pelvic vessels is limited due to lack of intravenous contrast. Left external iliac stent. Urinary Bladder: Grossly unremarkable for degree of distention. Pelvic Organs: Unremarkable Musculoskeletal: No aggressive focal bony lesions, acute fractures or dislocation. IMPRESSION: 1. Acute interstitial pancreatitis. No fluid collection. 2. Hepatic steatosis. 3. Stable 1.6 cm posterior right hepatic lobe lesion. ATED BY: BESSIE TENA MD DICTATED DATE/TIME: 11/02/24 09 PATIENT: RAMÍREZ WYLIE ACCT: [id number] UNIT: [id number] : 1960 LOC: ER ROOM / BED: / AGE / SEX: 64 / M ADM STATUS: REG ER SERVICE [id number] ORDERING PHYSICIAN: JEFFREY BAEZ MD PROCEDURE(s): CXRP - CHEST PORTABLE REASON: CHEST PAIN ORDER NUMBER(s): [id number], ACCESSION NUMBER(s): [id number] CHEST RADIOGRAPH Indication: CHEST PAIN Technique: Single frontal view of the chest was obtained Comparison: XY CHEST PORTABLE on DOS: 05/31/24 FINDINGS: Lines and Tubes: None Lungs: No focal consolidation. Pleura: No effusion. No pneumothorax. Cardiomediastinal contours: Unremarkable Bones: No acute osseous abnormality. IMPRESSION: 1. No acute cardiopulmonary disease. ATED BY: BESSIE TENA MD DICTATED DATE/TIME: 11/02/24 0506 Condition at Discharge: Good Final Diagnosis/Problems List Possible Sepsis Recurrent Pancreatitis History of DVT Hypertension Hepatic steatosis Schizophrenia Obesity hypokalemia hypomagnesemia Discharge Disposition: Home Discharge Instruct/Medications Diet: See Comment Diet comment: Healthy diet Activity: No Restrictions, As Tolerated Follow Up/Referral: 7 Medications: Zofran Discharge Statement: "Patient was advised to return to the ER or call 911 if any headaches, dizziness, shortness of breath, chest pain, abdominal pain, bleeding, fevers, or worsening of medical condition. Patient was counseled about treatment plan, medications, possible side effects, patientverbalized understanding. All questions were answered to the best of my ability. This discharge took greater then 30 minutes in planning, reviewing documentation, counseling the patient, and discussing with other team members." ASSESSMENT ASSESSMENT Assessment Problem List/Assessment/Plan Possible Sepsis Recurrent Pancreatitis History of DVT Hypertension Hepatic steatosis Schizophrenia Obesity Date of Service: Nov 04, 2024 Billing Provider: LEVON VANEGAS MD Common Visit Codes: 48195-FNS/OBS DISCH DAY >30min FRANCES SEXTON RESIDENT Nov 04, 2024 18:06 LEVON VANEGAS MD Nov 08, 2024 00:07
== END 2024-11-04 17:58 | disposition home or self-care (01) | DRG 871 ==
LOC: EDBD 03:16 → ER 03:16 → TELE 08:09 → TELE-WESTW 20:58
PROVIDERS: ADMIT Student in an Organized Health Care Education/Training Program; ATTEND Student in an Organized Health Care Education/Training Program
DX: A41.9 Sepsis, unspecified organism (principal); K85.90 Acute pancreatitis without necrosis or infection, unspecified; N17.0 Acute kidney failure with tubular necrosis; A04.9 Bacterial intestinal infection, unspecified; N18.9 Chronic kidney disease, unspecified; I12.9 Hypertensive chronic kidney disease with stage 1 through stage 4 chronic kidney disease, or unspecified chronic kidney disease; F20.9 Schizophrenia, unspecified; E66.9 Obesity, unspecified; E78.5 Hyperlipidemia, unspecified; K76.0 Fatty (change of) liver, not elsewhere classified; E87.6 Hypokalemia; E83.42 Hypomagnesemia; Z86.718 Personal history of other venous thrombosis and embolism; Z68.37 Body mass index [BMI] 37.0-37.9, adult; Z79.899 Other long term (current) drug therapy
CPT/HCPCS: 36415; 71045; 74176; 80053; 80061; 80320; 83615; 83690; 83735; 83880; 84484; 85025; 85610; 85730; 86803; 87340; 93005; G0378; J2405; J2470; J3490

== ENCOUNTER → 2024-12-21 | Day surgery (SDC) | payer MEDICARE, MEDICAID ==
[2024-12-17 09:21] LABS: Urine Bacteria None Seen /hpf (None Seen)
[2024-12-17 09:26] LABS: Urine Blood Negative /uL (Negative); Urine Clarity Clear (Clear); Urine Color Yellow (Yellow); Urine Hyaline Cast FEW /lpf (0 - 2); Urine Protein, UAD Negative (Negative); Urine Specific Gravity 1.022 (1.001-1.035); Urine Squamous Epithelial Cell None Seen /hpf (<5); Urine Urobilinogen Normal (Negative); Urine WBC 3 /hpf (0 - 3)
[2024-12-17 09:36] LABS: Basophils # (auto) 0.1 10 ^3/uL (0-0.2); Basophils % (auto) 1.1 % (0.0-2.0); Eosinophils # (auto) 0.2 10 ^3/uL (0-0.8); Eosinophils % (auto) 3.4 % (0.0-7.0); Hematocrit 45.1 % (41.0-53.0); Hemoglobin 15.5 g/dL (13.5-17.5); Lymphocytes # (auto) 1.6 10 ^3/uL (0.4-5.4); Mean Corpuscular Hgb Conc. 34.4 g/dL (32.0-36.0); Mean Corpuscular Volume 95.9 fL (80.0-100.0); Monocytes # (auto) 0.8 10 ^3/uL (0-1.3); Monocytes % (auto) 11.3 % (0.0-12.0); Neutrophils # (auto) 4.1 10 ^3/uL (1.6-8.6); Neutrophils % (auto) 60.2 % (37.0-80.0); Nucleated Red Blood Cells % 0.1 %; Platelet Count (auto) 217 10^3/uL (140-450); Red Cell Distribution Width 13.8 % (11.8-14.3); White Blood Cell 6.8 10^3/uL (4.4-10.8)
[2024-12-17 09:51] LABS: INR 1.02 (0.9-1.15); Partial Thromboplastin Time 22.8 SEC (24.5-34.5); Prothrombin Time 10.8 sec (9.3-11.8)
[2024-12-17 10:34] LABS: Albumin 4.8 g/dL (3.2-4.8); Alkaline Phosphatase 101 U/L (46-116); Anion Gap 6 (5-15); Aspartate Aminotransferase 31 U/L (13-40); BUN/Creatinine Ratio 15.4 (10.0-20.0); Blood Urea Nitrogen 16 mg/dL (9-23); Carbon Dioxide 25 mmol/L (20-31); Chloride 105 mmol/L (98-107); Glucose 104 mg/dL (74-106); Potassium 4.2 mmol/L (3.5-5.1); Sodium 136 mmol/L (136-145)
[2024-12-17 10:35] LABS: Alanine Aminotransferase 42 U/L (7-40); Bilirubin, Total 0.4 mg/dL (0.2-1.0); Calcium 10.6 mg/dL (8.7-10.4); Total Protein 7.7 g/dL (5.7-8.2)
[~2024-12-21] VITALS: Ht 182.9 cm; Wt 122.5 kg
[~2024-12-21] MED LIST changes: +ACETAMINOPHEN IV 100 ML IV ONE; +AMLO1TAB22 PO; +BUPIVACAINE HCL 50 ML ONE; +CELECOXIB 100 MG CAP ONE; +CYA100I IM; +DexAMETHasone SOD PHOS 10MG/1ML VIAL INJ ONE; +DexAMETHasone SOD PHOS 4 MG/1ML SDV INJ ONE; +EPINEPHrine HCL 1 MG/1 ML AMP ONE; -ERGO1CAP23 PO; +ESMOLOL HCL 10 ML IV ONE; +FLUMAZENIL 0.1 MG/ML INJ 10ML MDV IV PRN; -FOLI-119 PO; +GABAPENTIN 400 MG CAP PO ONE; +GLYCOPYRROLATE 0.2 MG/ML 1ML VIAL ONE; +HYDROmorphone HCL 2 MG/ML VL/or syr IV PRN; +HYDROmorphone HCL 2 MG/ML VL/or syr ONE; +IBUP200C14 PO; +KETOROLAC TROMETH 30 MG/ML 1ML VIAL ONE; +LABETALOL HCL 5 MG/ML ML 20ML VIAL IV ONE; +LIDOCAINE 1% INJ PF 5ML AMP ONE; +LIDOCAINE 2% (LOCAL ANESTH.) PF 5ml SDV ONE; +LIDOCAINE HCL 2% TOP JELLY 5ML TOP ONE; -MULTTAB99 PO; +NALOXONE HCL 0.4 MG/ML VIAL IV PRN; -NIFE1TAB31 PO; +ONDANSETRON HCL 4 MG/2 ML VIAL IV PRN; +ONDANSETRON HCL 4 MG/2 ML VIAL ONE; -PANT40TA2 PO; +PROPOFOL 10 MG/ML 20 ML IV ONE; +QUET200T4 PO; -QUET200T86 PO; +ROCURONIUM 10MG/ML 10ML VIAL IV ONE; +SODIUM CHLORIDE LOCK 10 ML ONE; +SUGAMMADEX 200mg/2ml Vial (100MG/ML) IV ONE; +TRANEXAMIC ACID 10 ML ONE; +TRANEXAMIC ACID 20 ML ONE; -[UNRECOGNIZED DRUG - CODE] EACHEYE; +ceFAZolin 1GM VL ONE; +ceFAZolin 2 GM/D5W100ml 100 ML IV ONE; +ePHEDrine SULFATE 50 MG/ML AMP IV PRN; +fentaNYL CITRATE 100 MCG/2 ML VL IV PRN; +fentaNYL CITRATE 100 MCG/2 ML VL ONE; +hydrALAZINE HCL 20 MG/ML VL IV PRN; +oxyCODONE HCL 5MG TAB PO PRN
[2024-12-21] MEDS: GABAPENTIN 100 MG CAP ONE (07:05)
[2024-12-21] MEDS: ACETAMINOPHEN IV 1000 MG/100ML (10MG/ML) IV ONE (07:05)
[2024-12-21] MEDS: GABAPENTIN 300 MG CAP ONE (07:05)
[2024-12-21] MEDS: CELECOXIB 100 MG CAP PO ONE (07:05)
[2024-12-21] MEDS: EPINEPHrine HCL 1 MG/1 ML AMP ONE (08:46)
[2024-12-21] MEDS: BUPIVACAINE 0.25% INJ 50ML VIAL ONE (09:10)
[2024-12-21 12:15] VITALS: PULSE 72; RESP 23; TEMP 98.2; O2SAT 98
[2024-12-21] MEDS: HYDROmorphone HCL 2 MG/ML VL/or syr IV ONE (12:36)
--- NOTE | 2024-12-21 13:38 | DVHOP2 ---
Operative Report - 2 Report Details Date: 12/21/24 Preop Diagnosis: Left shoulder instability with massive rotator cuff tear and greater tuberosity fracture malunion Postop Diagnosis: Left shoulder instability with a massive rotator cuff tear and greater tuberosity fracture malunion Surgeon: Risa Gonzalez MD Anesthesiologist: Benji An CRNA Anesthesia: General, Regional Implant: Arthrex FiberTak triple loaded x2, fiber stitch x2, SwiveLock x3 Consent: The patient was informed of the risks and benefits of the procedure. These include but are not limited to complications of anesthesia, postoperative infection, incomplete relief of symptoms, recurrence of symptoms, damage to bloo d vessels, nerves and tendons, deep venous thrombosis, pulmonary embolism and possible need for repeat surgery in the future. Complications: None Estimated Blood Loss: Less than 10 mL Indications for Surgery: The patient is a 64-year-old male who presented to the clinic with a history of fracture dislocation. He had a greater tuberosity fracture. This went into malunion. He had significant weakness in abduction with drop-arm positive. He had no active abduction, approximately 20 only. Clinical and radiological evaluation demonstrated complete rotator cuff tear, acute in nature, without any atrophy. Significant avulsion of the glenohumeral ligament anteriorly was also noted with subscapularis tear and some subluxation. Name of Procedure Performed Left shoulder arthroscopy, Bankart repair, capsulorrhaphy, extensive synovial debridement, subscapularis repair, supraspinatus and infraspinatus repair using double row technique Procedure Details Procedure Details: The patient was identified in the preoperative holding area and the surgical site was marked. The consent was verified. The patient was brought into the operating room and placed supine on the operating table. General anesthesia was administered. The beachchair attachment was applied to the operating table. The patient was now brought up into the beachchair position, approximately 60 degrees. The arm was prepped and draped in the usual sterile manner. The arm was placed in the attachment for the spyder, mechanical arm alanis. The extremity was examined under anesthesia and was found to have good passive range of motion. A timeout was performed to confirm the identity of the patient, the nature of surgery, the site of surgery, the available of implants and x-rays and allergies to medications A standard posterior portal established. A 30 degree scope was inserted A standard anterior portal was established. A probe was inserted and the findings are as follows: 1. Upper 3rd subscapularis tendon 2. Significant fraying and tear of the biceps tendon, complete tear noted 3. Significant anterior labral tear and anterior capsular avulsion off the glenoid side, ALPSA lesion 4. Grade 2-3 chondromalacia, grade 4 anterior glenoid 5. Significant synovitis, tear of the capsule 6. Full-thickness rotator cuff tear, massive-sized with retraction to cartilage A 70 degree scope was inserted. Two anterior portals were established. A cannula was inserted. Significant capsular laxity noted as well. I decided to proceed with the labral repair and capsulorrhaphy. A drill guide was inserted through the anteroinferior portal at the 6:30 position. The hole for the anchor was drilled. Next, a fiber stitch all suture anchor was inserted. A suture lasso was now inserted through the anteroinferior portal. This was passed through the capsule and the inferior labrum. The knotless mechanism was used to repair the labrum and shift the capsule. Excellent fixation was noted. This was repeated for one more anchor sequentially up to the subscapularis tendon. The inferior glenohumeral ligament and middle glenohumeral ligament were also included in the repair due to generalized laxity. Bumper effect was noted. Capsular shift was also done as part of this procedure. An attempt was made to put one more anchor near the subscapularis, however because of the bony Bankart lesion, good fixation was not noted in the anchor was removed uneventfully. Significant glenoid cartilage loss was noted in the anterior portion near the bony Bankart. This was malunited as well. The subscapularis was now evaluated. This was completely torn on the upper 1/3. This was repaired as well. Two fiber stitch loops were inserted through the upper 3rd of the subscapularis. A tap was inserted into the lesser tuberosity. These two sutures were inserted into the SwiveLock anchor and inserted into the bone. The 1st SwiveLock anchor broke and was removed uneventfully. The 2nd one was now used after tapping all the way. The biceps tendon tear was completely torn off the groove. This was removed as well. The subacromial space was entered. Significant bursitis was noted. Decompression was carried out with bursectomy. The rotator cuff tear was visualized. This was a massive sized tear after debridement. Greater tuberosity malunion was noted. Significant scar tissue was noted and adhesions were noted which were also released. Significant time and efforts were spent doing the steps to release the scar tissue, identified the anatomy and mobilize the tendon. I decided to do a double row repair for this tear. A medial row triple loaded all suture anchor was used.. A posterior similar anchor was now inserted. 2 additional portals were made, the posterior lateral portal and the superior portal for this. A cannula was inserted into the lateral portal. A suture penetration and grasping device was used to grasp the tissue and passed the sutures. The sutures were sequentially passed from anterior to posterior direction. Twelve passes were made. The sutures were now tied for an excellent medial row footprint coverage. Eight of the sutures were now inserted into a knotless lateral row anchor. This was used as per manufacture's guidelines. The self punching anchor was used and inserted into the bone. Good fixation was noted. Subacromial decompression was completed with acromioplasty to remove approximately 5 mm of acromion as it was downsloping in nature. Irrigation was given and the skin portals were closed with 2-0 nylon Sterile dressing was applied. Local anesthetic was given. Shoulder immobilizer was applied Disposition: Good, the patient was extubated and taken to recovery without any complications. The patient was examined in the recovery and had intact neurovascular exam Plan: To remain in the brace. Follow-up in 1 week. Condition Good Disposition Home RISA GONZALEZ MD Dec 21, 2024 13:38
[2024-12-21 14:10] VITALS: BP 112/70; PULSE 71; RESP 15; O2SAT 96
== END | disposition home or self-care (01) ==
LOC: SUR 06:13
PROVIDERS: ATTEND Orthopaedic Surgery Sports Medicine
DX: M25.312 Other instability, left shoulder (principal); S42.253A Displaced fracture of greater tuberosity of unspecified humerus, initial encounter for closed fracture; S46.212A Strain of muscle, fascia and tendon of other parts of biceps, left arm, initial encounter; S43.432A Superior glenoid labrum lesion of left shoulder, initial encounter; M94.212 Chondromalacia, left shoulder; M75.122 Complete rotator cuff tear or rupture of left shoulder, not specified as traumatic; M65.812 Other synovitis and tenosynovitis, left shoulder; X58.XXXA Exposure to other specified factors, initial encounter; Y93.89 Activity, other specified; Y92.89 Other specified places as the place of occurrence of the external cause; Y99.8 Other external cause status; I10 Essential (primary) hypertension; F20.89 Other schizophrenia; E66.01 Morbid (severe) obesity due to excess calories; Z68.36 Body mass index [BMI] 36.0-36.9, adult; Z79.899 Other long term (current) drug therapy; Z86.718 Personal history of other venous thrombosis and embolism; Z87.891 Personal history of nicotine dependence; Z88.8 Allergy status to other drugs, medicaments and biological substances; Z88.2 Allergy status to sulfonamides
CPT/HCPCS: 29806; 29826; 29827; 36415; 80053; 81001; 85025; 85610; 85730; C1713; J0171; J0690; J1100; J1171; J1885; J2003; J2405; J2704; J3010; J3490; A4565; J0131

== ENCOUNTER 2025-04-20 17:24 | Outpatient (CLI) | payer MEDICARE, MEDICAID ==
[~2025-04-20 17:24] MED LIST changes: -ACETAMINOPHEN IV 100 ML IV ONE; -BUPIVACAINE HCL 50 ML ONE; -CELECOXIB 100 MG CAP ONE; -DexAMETHasone SOD PHOS 10MG/1ML VIAL INJ ONE; -DexAMETHasone SOD PHOS 4 MG/1ML SDV INJ ONE; -EPINEPHrine HCL 1 MG/1 ML AMP ONE; -ESMOLOL HCL 10 ML IV ONE; -FLUMAZENIL 0.1 MG/ML INJ 10ML MDV IV PRN; -GABAPENTIN 400 MG CAP PO ONE; -GLYCOPYRROLATE 0.2 MG/ML 1ML VIAL ONE; -HYDROmorphone HCL 2 MG/ML VL/or syr IV PRN; -HYDROmorphone HCL 2 MG/ML VL/or syr ONE; -KETOROLAC TROMETH 30 MG/ML 1ML VIAL ONE; -LABETALOL HCL 5 MG/ML ML 20ML VIAL IV ONE; -LIDOCAINE 1% INJ PF 5ML AMP ONE; -LIDOCAINE 2% (LOCAL ANESTH.) PF 5ml SDV ONE; -LIDOCAINE HCL 2% TOP JELLY 5ML TOP ONE; -NALOXONE HCL 0.4 MG/ML VIAL IV PRN; -ONDANSETRON HCL 4 MG/2 ML VIAL IV PRN; -ONDANSETRON HCL 4 MG/2 ML VIAL ONE; -PROPOFOL 10 MG/ML 20 ML IV ONE; -ROCURONIUM 10MG/ML 10ML VIAL IV ONE; -SODIUM CHLORIDE LOCK 10 ML ONE; -SUGAMMADEX 200mg/2ml Vial (100MG/ML) IV ONE; -TRANEXAMIC ACID 10 ML ONE; -TRANEXAMIC ACID 20 ML ONE; -ceFAZolin 1GM VL ONE; -ceFAZolin 2 GM/D5W100ml 100 ML IV ONE; -ePHEDrine SULFATE 50 MG/ML AMP IV PRN; -fentaNYL CITRATE 100 MCG/2 ML VL IV PRN; -fentaNYL CITRATE 100 MCG/2 ML VL ONE; -hydrALAZINE HCL 20 MG/ML VL IV PRN; -oxyCODONE HCL 5MG TAB PO PRN
== END 2025-04-20 17:30 | disposition home or self-care (01) ==
LOC: Rad HDHVI 17:24
PROVIDERS: ATTEND Internal Medicine Cardiovascular Disease
DX: R60.9 Edema, unspecified (principal)
CPT/HCPCS: 93970

== ENCOUNTER 2025-08-03 08:05 | Outpatient (CLI) | payer MEDICAID ==
[~2025-08-03] VITALS: Ht 182.9 cm; Wt 122.5 kg
[2025-08-03] MEDS ORDERED: ADENOSINE 90 MG/30 ML INJ IV ONE (08:56)
[2025-08-03] MEDS ORDERED: ADENOSINE 103 MG in GIVE UN-DILUTED 0 ML IV ONE (09:00)
== END 2025-08-03 17:00 | disposition home or self-care (01) ==
LOC: Rad HDHVI 08:05
PROVIDERS: ATTEND Internal Medicine Cardiovascular Disease
DX: I10 Essential (primary) hypertension (principal); R07.89 Other chest pain; E78.5 Hyperlipidemia, unspecified; R73.03 Prediabetes; R06.00 Dyspnea, unspecified; R22.43 Localized swelling, mass and lump, lower limb, bilateral; Z95.828 Presence of other vascular implants and grafts; Z86.718 Personal history of other venous thrombosis and embolism; Z82.49 Family history of ischemic heart disease and other diseases of the circulatory system
CPT/HCPCS: 78452; 93017; A9500; J0153

== ENCOUNTER 2025-08-05 08:11 | Outpatient (CLI) | payer MEDICAID ==
[2025-08-05 08:50] LABS: Hematocrit 46.4 % (41.0-53.0); Hemoglobin 16.0 g/dL (13.5-17.5); Mean Corpuscular Hemoglobin 32.8 pg (28.0-32.0); Mean Corpuscular Volume 94.9 fL (80.0-100.0); Nucleated Red Blood Cells % 0.1 %
[2025-08-05 09:24] LABS: Albumin 4.4 g/dL (3.2-4.8); Alkaline Phosphatase 110 U/L (46-116); Anion Gap 7 (5-15); BUN/Creatinine Ratio 17.6 (10.0-20.0); Bilirubin, Total 0.5 mg/dL (0.2-1.0); Blood Urea Nitrogen 15 mg/dL (9-23); Calcium 9.4 mg/dL (8.7-10.4); Carbon Dioxide 21 mmol/L (20-31); Cholesterol 199 mg/dL (< 200); HDL Cholesterol 45 mg/dL (40-59); Potassium 4.0 mmol/L (3.5-5.1); Sodium 136 mmol/L (136-145); Total Protein 7.8 g/dL (5.7-8.2)
[2025-08-05 09:31] LABS: Alanine Aminotransferase 46 U/L (7-40); Chloride 108 mmol/L (98-107); Glucose 107 mg/dL (74-106); Triglycerides 299 mg/dL (< 150)
== END 2025-08-05 17:00 | disposition home or self-care (01) ==
LOC: LAB 08:11
PROVIDERS: ATTEND Internal Medicine
DX: K76.0 Fatty (change of) liver, not elsewhere classified (principal); E78.5 Hyperlipidemia, unspecified; D64.9 Anemia, unspecified
CPT/HCPCS: 36415; 80053; 80061; 83036; 84153; 85025

== ENCOUNTER 2025-08-08 13:02 | Outpatient (CLI) | payer MEDICAID | END 2025-08-08 17:00 | disposition home or self-care (01) | LOC: Rad HDHVI 13:02 | PROVIDERS: ATTEND Internal Medicine Cardiovascular Disease | DX: I08.0 Rheumatic disorders of both mitral and aortic valves (principal); I10 Essential (primary) hypertension; E78.5 Hyperlipidemia, unspecified | CPT/HCPCS: 93306 ==

== ENCOUNTER 2025-10-14 08:56 | Outpatient (CLI) | payer MEDICAID ==
[2025-10-14 09:32] VITALS: BP 123/69; PULSE 77; RESP 16; O2SAT 95
[2025-10-14 09:40] VITALS: BP 121/66; PULSE 77; RESP 16; O2SAT 95
[2025-10-14 11:02] LABS: Hematocrit 44.4 % (41.0-53.0); Hemoglobin 15.3 g/dL (13.5-17.5); Mean Corpuscular Hemoglobin 32.1 pg (28.0-32.0); Mean Corpuscular Volume 93.6 fL (80.0-100.0); Nucleated Red Blood Cells % 0.0 %
[2025-10-14 11:10] LABS: INR 1.09 (0.9-1.15); Partial Thromboplastin Time 30.0 SEC (24.5-34.5); Prothrombin Time 11.5 sec (9.3-11.8)
[2025-10-14 11:13] LABS: Anion Gap 9 (5-15); Carbon Dioxide 25 mmol/L (20-31); Chloride 104 mmol/L (98-107); Potassium 4.4 mmol/L (3.5-5.1); Sodium 138 mmol/L (136-145)
[2025-10-14 11:15] LABS: Calcium 9.5 mg/dL (8.7-10.4)
[2025-10-14 11:18] LABS: Glucose 86 mg/dL (74-106)
[2025-10-14 11:19] LABS: BUN/Creatinine Ratio 13.6 (10.0-20.0); Blood Urea Nitrogen 14 mg/dL (9-23)
[2025-10-14] MEDS ORDERED: APIX5TAB PO (14:26)
[2025-10-14] MEDS ORDERED: FURO1TAB33 PO (14:26)
[2025-10-14] MEDS ORDERED: LOSA-535 PO (14:26)
[2025-10-14] MEDS ORDERED: QUET200T86 PO (14:35)
[2025-10-14] MEDS ORDERED: POTA-228 PO (14:35)
== END 2025-10-17 17:00 | disposition home or self-care (01) ==
LOC: CHF HDHVI 08:56
PROVIDERS: ATTEND Internal Medicine Cardiovascular Disease
DX: Z01.818 Encounter for other preprocedural examination (principal); R94.39 Abnormal result of other cardiovascular function study; R07.9 Chest pain, unspecified
CPT/HCPCS: 36415; 80048; 85025; 85610; 85730; 93005; G0463

== ENCOUNTER 2025-10-18 07:57 | Day surgery (SDC) | payer MEDICAID ==
[2025-10-18] VITALS (8 sets, daily range): BP systolic 134–162; BP diastolic 74–90; PULSE 58–70; RESP 12–19; O2SAT 94–98
[~2025-10-18] VITALS: Ht 182.9 cm; Wt 119.3 kg
[~2025-10-18 07:57] MED LIST changes: +APIX5TAB PO; -CHOL500023 PO; -CYA100I IM; +FURO1TAB33 PO; -IBUP200C14 PO; -LOSA-533 PO; +LOSA-535 PO; +POTA-228 PO; -POTA-36 PO; +QUET200T86 PO
[2025-10-18] MEDS: LIDOCAINE 2%HCL (LOCAL ANESTH.) INJ 20ML MDV ONE (12:05)
[2025-10-18] MEDS: HEPARIN IN NS 1000Units/500mL 1,500 ML ONE (12:05)
[2025-10-18] MEDS: IOHEXOL 350 MG/ML 100ML IJ ONE ×2 (12:05→13:44)
[2025-10-18] MEDS: fentaNYL CITRATE 100 MCG/2 ML VL ONE (12:53)
[2025-10-18] MEDS: MIDAZOLAM HCL 2MG/2ML 2ml VIAL (1mg/ml) ONE (12:54)
[2025-10-18] MEDS: SODIUM CHL 0.9% 50 ML ONE (12:56)
[2025-10-18] MEDS: ANGIOMAX 250 MG VIAL IV ONE (12:57)
[2025-10-18] MEDS: CLOPIDOGREL BISULFATE 75 MG TAB ONE (14:15)
--- NOTE | 2025-10-18 14:56 | DVHHP ---
ADMIT DATE: 10/18/2025 HISTORY OF PRESENT ILLNESS: The patient is a 65-year-old with history of hypertension, hyperlipidemia, diabetes, diabetic neuropathy, vasculopathy, nephropathy, history of morbid obesity, history of sleep apnea. Now presents with signs of decompensation and increasing shortness of breath. Echocardiogram shows diminished left ventricular ejection fraction, EF around 40% to 45% with inferior wall hypokinesis. Furthermore, the patient's stress test shows lateral wall reversibility and inferior wall partial reversibility. Because of the above presentation, it was found that the patient should undergo coronary angiography to define coronary anatomy. Risks and benefits were explained to the patient. The patient understands and agrees. FAMILY HISTORY: Negative. SOCIAL HISTORY: As described above. No tobacco or alcohol use. No drug use. The patient has excessive caloric intake. He is overweight and has also osteoarthritis as well. REVIEW OF SYSTEMS: He denies any syncopal episodes. No melena, hematochezia. No bleeding diathesis. No hematemesis or hemoptysis. He denies any recent travel. No seizure disorder. No movement disorder. He denies any visual discrepancies. He has been diabetic for over 10 years and he has a manifestation of diabetic neuropathy, vasculopathy, and nephropathy. PHYSICAL EXAMINATION: VITAL SIGNS: Blood pressure is 134/80, pulse 70, O2 saturation 98% on room air. HEENT: Pupils are reactive. Funduscopic exam shows no AV nicking, no exudate, and no papilledema. No exudates noted. Extraocular muscles are intact. NECK: No JVD appreciated. PULMONARY: Clear to auscultation. CARDIOVASCULAR: Regular rate. PMI is slightly diffuse, laterally displaced. ABDOMEN: Obese, unable to appreciate organomegaly. Stool guaiac is negative. EXTREMITIES: 1+ edema and 1+ pulses. ASSESSMENT AND PLAN: The patient does have organic heart disease, history of paroxysmal atrial fibrillation, history of possible inferior wall FL in the past, now with abnormal stress test echocardiography. The patient is now to undergo left heart catheterization. Further recommendations after the angiogram. Tee Cloud MD SA/YOSELYN TID: [id number] RECEIPT: [id number]
--- NOTE | 2025-10-18 15:14 | DVHDS ---
DATE OF DISCHARGE: 10/18/2025 DISCHARGE DIAGNOSES: * Coronary artery disease, status post angioplasty, stent placement with thrombectomy of the obtuse marginal 2 with FFR performed with significant lesion of FFR reading 0.74. * The patient has occluded RCA distally with bridging collaterals from the left. It is less than 2 mm in size and with an acute/inferior take off of the coronary artery. HOSPITAL COURSE: The patient at this time is clinically doing well. He underwent successful reintervention of the obtuse marginal 2, is patent, less than 10% residual stenosis, may be discharged home on dual antiplatelet therapy. Eliquis will be held until I see him in the office. Follow up with me in 1 week. CONDITION AT DISCHARGE: Stable at the time discharge. DISPOSITION: Home. ACTIVITY: As instructed. DIET: A 2 gram sodium diet. Tee Cloud MD SA/[place] TID: [id number] RECEIPT: [id number]
--- NOTE | 2025-10-18 15:55 | DVHOP ---
DATE OF SURGERY: 10/18/2025 PROCEDURES PERFORMED: * Selective left and right coronary angiography. * Ventriculogram. * Right iliac angiography. * Thrombectomy of the second obtuse marginal branch of the circumflex artery. * Angioplasty with stent placement of the obtuse marginal 2 with a 3.0 x 12 mm [place] stent. * FFR of the obtuse marginal 2 with an FFR of 0.74, consistent with hemodynamically significant lesion in the branch. * Conscious sedation was given as well. Ventriculogram was done with an EF of around 45% with LVEDP of 10-15 mmHg with no gradient across the aortic valve. DESCRIPTION OF PROCEDURE: The patient was prepped and draped under sterile condition. 1% Xylocaine used to anesthetize the right groin. Using Cook needle, right femoral artery was engaged. Using Seldinger technique, a [place] sheath was placed in the right femoral artery. Using a [place] JL4 catheter and [place] JR4 catheter, selective left and right coronary angiography was performed. Using [place] pigtail catheter, a ventriculogram was done. Then, the 6[place] diagnostic system was exchanged for a [place] interventional system. Using a [place] XP 3.5 guide catheter, the left main was cannulated using a Runthrough wire. The obtuse marginal 3 was cannulated as additional support and a second Runthrough wire was placed into obtuse marginal 2, which had an acute takeoff. By reshaping the anatomy of the artery, we were able to gain access into the second marginal branch. It was then predilated using a 3.0 x 12 mm Shockwave thrombectomy catheter. It was deployed at 4 atmospheres. Following the treatment, a 3.0 x 12 mm [place] stent was then deployed across the lesion at 12 atmospheres. There were no complications. The patient tolerated the procedure well. RESULTS: * Left main patent. * Left anterior descending artery with mild intimal irregularity without any flow-restrictive lesion. * Circumflex proper had no significant narrowing. Distal to the trifurcation of the obtuse marginal branches, the patient had a 30% narrowing proximally and 80% narrowing of obtuse marginal 2. Right coronary artery was distally occluded, it is a nondominant vessel, acute takeoff with [id number] collaterals providing ____. Ejection fraction was around 45% on the ventriculogram with a left ventricular end-diastolic pressure of 10 -15 mmHg with no gradient across the aortic valve. Thus, the patient had mild disease in the coronary anatomy and about 80% narrowing of the obtuse marginal 2, status post thrombectomy with stent placement, less than 10% residual stenosis. CONCLUSIONS: * The patient needs to lose excessive weight. * Dual-antiplatelet therapy will be initiated. * FFR showed a hemodynamically significant lesion in the obtuse marginal 2 that we had dealt with and carotid Doppler following carotid CT also showed carotid angioplasty was patent with no residual stenosis. Tee Cloud MD SA/EKT/GOD TID: [id number] RECEIPT: [id number]
== END 2025-10-18 16:22 | disposition home or self-care (01) ==
LOC: CATH 07:57
PROVIDERS: ATTEND Internal Medicine Cardiovascular Disease
DX: R06.02 Shortness of breath (principal); I25.10 Atherosclerotic heart disease of native coronary artery without angina pectoris; I10 Essential (primary) hypertension; E78.5 Hyperlipidemia, unspecified; E11.40 Type 2 diabetes mellitus with diabetic neuropathy, unspecified; E66.01 Morbid (severe) obesity due to excess calories; G47.30 Sleep apnea, unspecified; F17.210 Nicotine dependence, cigarettes, uncomplicated; Z88.2 Allergy status to sulfonamides; Z82.49 Family history of ischemic heart disease and other diseases of the circulatory system; Z83.3 Family history of diabetes mellitus; Z79.899 Other long term (current) drug therapy
CPT/HCPCS: 0523T; 92972; 92973; 93458; C1760; C1761; C1769; C1874; C1887; C1894; C9600; J0583; J1644; J2250; J3010; J7030; Q9967; 99152; 99153

== ENCOUNTER 2025-11-17 07:14 | Inpatient (IN) | payer MEDICAID ==
[~2025-11-17] VITALS: Ht 182.9 cm; Wt 128.7 kg
[2025-11-17 07:24] VITALS: PULSE 119; RESP 16; O2SAT 97
--- NOTE | 2025-11-17 08:25 | ED.PDOC ---
Altered Mental Status HPI Comments 65 year old male with PMHx of liver disease, DVT, PE, HTN, schizophrenia, ETOH abuse, presents to the ED with a chief complaint of dizziness onset 3 days. Patient states he has been experiencing dizziness, confusion, headache for the past 3 days. Patient has been consuming 5 bottles of Vodka, 5 beers daily for th e past week, last drink was last night. He had cardiac stent placed 2 weeks ago, currently on Plavix. Patient states he is currently experiencing headache, 10/10 pain, confusion, unsteady gait, tremors. Upon ED arrival patient is tachycardiac with HR of 120. Denies fever, chills, nausea, vomiting, diarrhea, chest pain, head injury, LOC, dysuria, hematuria, numbness/tingling. No other symptoms or modifying factors present at this time. Chief Complaint: Confusion Time Seen by MD: 08:05 Primary Care Provider: UNKNOWN Reviewed Notes: Medications, Allergies Allergies: Coded Allergies: Sulfa Antibiotics (Verified Allergy, Unknown, 10/14/25) Home Meds Active Scripts Magnesium Oxide (MAGNESIUM OXIDE) 400 Mg Tab, 1 TAB PO DAILY for 30 Days, #30 TAB 5 Refills Prov:AUSTIN LEONARD RESIDENT 06/04/24 Reported Medications Quetiapine Fumarate (Quetiapine Fumarate ER) 200 Mg Tab, 200 MG PO QPM for PSYCHOSIS, TAB 10/14/25 Potassium Chloride (Potassium Chloride ER) 10 Meq Tab, 10 MEQ PO DAILY, TAB 10/14/25 Apixaban Base (ELIQUIS) 5 Mg Tab, MG PO BID for STOP ON 10/15/25, TAB 10/14/25 Furosemide (Lasix) 20 Mg Tb, 1 TAB PO DAILY for EDEMA, #90 TAB 1 Refill 10/14/25 Losartan Potassium (Losartan Potassium) 100 Mg Tab, 1 TAB PO DAILY for HTN, #30 TAB 5 Refills 10/14/25 Quetiapine Fumerate (Seroquel Xr) 200 Mg Tab, 200 MG PO HS for 30 Days, MG 12/17/24 Amlodipine Besylate (Amlodipine Besylate) 5 Mg Tab, 1 TAB PO DAILY for HTN 11/02/24 Fenofibrate (Fenofibrate) 160 Mg Tab, 1 TAB PO DAILY 12/22/23 Information Source: Patient Mode of Arrival: Ambulatory Severity: Moderate Timing: Days Duration: Since onset Prehospital treatment: None Quality: Confusion Recent: Other (ETOH ) History of: Other Associated Signs and Symptoms: Headache Past Medical History PAST MEDICAL HISTORY: High Lipids, HTN, Liver, PE, Schizophrenia Surgical History: PTCA Family History Family History: Family hx of heart paco Social History Smoker: Non-Smoker Alcohol: Heavy Drugs: Marijuana Lives In: Home Constitutional: denies: chills, diaphoresis, fatigue, fever, malaise, sweats, weakness, others EENTM: denies: blurred vision, double vision, ear bleeding, ear discharge, ear drainage, ear pain, ear ringing, eye pain, eye redness, hearing loss, mouth pain, mouth swelling, nasal discharge, nose bleeding, nose congestion, nose pain, photophobia, tearing, throat pain, throat swelling, voice changes, others Respiratory: denies: cough, hemoptysis, orthopnea, SOB at rest, shortness of breath, SOB with excertion, stridor, wheezing, others Cardiovascular: denies: chest pain, dizzy spells, diaphoresis, Dyspnea on exertion, edema, irregular heart beat, left arm pain, lightheadedness, palpitations, PND, syncope, others Gastrointestinal: denies: abdomen distended, abdominal pain, blood streaked bowels, constipated, diarrhea, dysphagia, difficulty swallowing, hematemesis, melena, nausea, poor appetite, poor fluid intake, rectal bleeding, rectal pain, vomiting, others Genitourinary: denies: burning, dysuria, flank pain, frequency, hematuria, incontinence, penile discharge, penile sore, pain, testicle pain, testicle swelling, urgency, others Neurological: reports: dizziness, headache, tremors, others (confusion); denies: fainting, left sided numbness, left sided weakness, numbness, paresthesia, pre-existing deficit, right sided numbness, right sided weakness, seizure, speech problems, tingling, weakness Musculoskeletal: denies: back pain, gout, joint pain, joint swelling, muscle pain, muscle stiffness, neck pain, others Integumetry: denies: bruises, change in color, change in hair/nails, dryness, laceration, lesions, lumps, rash, wounds, others Allergic/Immunocompromised: denies: Difficulty Healing, Frequent Infections, Hives, Itching, others Hematologic/Lymphatic: denies: anemia, blood clots, easy bleeding, easy bru ising, swollen glands, others Endocrine: denies: excessive hunger, excessive sweating, excessive thirst, e xcessive urination, flushing, intolerance to cold, intolerance to heat, unexplained weight gain, unexplained weight loss, others Psychiatric: reports: others (confusion); denies: anxiety, bipolar disorder, depression, hopeless, panic disorder, schizophrenia, sleepless, suicidal All Other Systems: Reviewed and Negative Physical Exam General Appearance: Moderate Distress, Normal, Other (tremulous ) HEENT: Normal ENT Inspection, Pharynx Normal, TMs Normal Neck: Full Range of Motion, Non-Tender, Normal, Normal Inspection Respiratory: Chest Non-Tender, Lungs Clear, No Accessory Muscle Use, No Respiratory Distress, Normal Breath Sounds Cardiovascular: No Edema, No JVD, No Murmur, No Gallop, Tachycardia Breast Exam: Deferred Gastrointestinal: No Organomegaly, Non Tender, No Pulsatile Mass, Normal Bowel Sounds, Soft Genitalia: Deferred Pelvic: Deferred Rectal: Deferred Extremities: No calf tenderness, Normal capillary refill, Normal inspection, Normal range of motion, Non-tender, No pedal edema Musculoskeletal : Apperance: Normal Neurologic: Alert, veterinary surgery technician II-XII nml as Tested, No Motor Deficits, Normal Affect, Normal Mood, No Sensory Deficits Cerebellar Function: Normal Reflexes: Normal Skin: Dry, Normal Color, Warm Lymphatic: No Adenopathy Was a procedure done? Was a procedure done?: No Differential Diagnosis (ALOC) Differential Diagnosis: Dehydration, ETOH Intoxication X-Ray, Labs, Meds, VS Vital Signs Date Time Temp Pulse Resp B/P (MAP) Pulse Ox O2 Delivery O2 Flow Rate FiO2 11/17/25 08:00 115 16 125/71 (89) 97 11/17/25 08:00 116 11/17/25 07:35 97.8 117 20 137/71 (93) 98 97.8 11/17/25 07:24 97.4 122 18 133/65 99 97.4 11/17/25 07:24 119 16 97 Nasal Cannula* 2 28 Lab Test 11/17/25 08:28 11/17/25 07:30 Range/Units White Blood Count 6.8 4.4-10.8 10^3/uL Red Blood Count 4.85 4.5-5.90 10^6/uL Hemoglobin 15.5 13.5-17.5 g/dL Hematocrit 44.8 41.0-53.0 % Mean Corpuscular Volume 92.3 80.0-100.0 fL Mean Corpuscular Hemoglobin 32.0 28.0-32.0 pg Mean Corpuscular Hemoglobin Concent 34.7 32.0-36.0 g/dL Red Cell Distribution Width 14.9 H 11.8-14.3 % Platelet Count 178 140-450 10^3/uL Mean Platelet Volume 7.7 6.9-10.8 fL Neutrophils (%) (Auto) 79.2 37.0-80.0 % Lymphocytes (%) (Auto) 10.7 10.0-50.0 % Monocytes (%) (Auto) 9.4 0.0-12.0 % Eosinophils (%) (Auto) 0.1 0.0-7.0 % Basophils (%) (Auto) 0.6 0.0-2.0 % Neutrophils # (Auto) 5.4 1.6-8.6 10 ^3/uL Lymphocytes # (Auto) 0.7 0.4-5.4 10 ^3/uL Monocytes # (Auto) 0.6 0-1.3 10 ^3/uL Eosinophils # (Auto) 0 0-0.8 10 ^3/uL Basophils # (Auto) 0 0-0.2 10 ^3/uL Nucleated Red Blood Cells 0.1 % Sodium Level 139 136-145 mmol/L Potassium Level 3.7 3.5-5.1 mmol/L Chloride Level 104 98-107 mmol/L Carbon Dioxide Level 18 L 20-31 mmol/L Anion Gap 17 H 5-15 Blood Urea Nitrogen 17 9-23 mg/dL Creatinine 1.11 0.700-1.30 mg/dL Glomerular Filtration Rate Calc 74 >90 mL/min BUN/Creatinine Ratio 15.3 10.0-20.0 Serum Glucose 122 H 74-106 mg/dL Lactic Acid Level 3.4 *H 0.4-2.0 mmol/L Calcium Level 9.1 8.7-10.4 mg/dL Troponin I High Sensitivity 21 </=54 ng/L Plasma/Serum Blood Alcohol 18.2 H <10 mg/dL POC Glucose 212 H 70-106 mg/dl Current Medications Medications (Trade) Dose Ordered Sig/Emmie Route Start Time Stop Time Status Last Admin Sodium Chloride 2,400 ml @ 2,400 mls/hr ONCE ONCE IV 11/17/25 08:15 11/17/25 09:14 DC 11/17/25 09:06 Pantoprazole Sodium (Protonix) 40 mg ONCE ONCE IV 11/17/25 08:15 11/17/25 08:17 DC 11/17/25 09:03 Ondansetron HCl (Zofran) 4 mg ONCE ONCE IV 11/17/25 08:15 11/17/25 08:17 DC 11/17/25 09:00 Ketorolac Tromethamine (Toradol Injection) 15 mg ONCE ONCE IV 11/17/25 08:15 11/17/25 08:17 DC 11/17/25 09:04 Midazolam HCl (Versed Injection) 5 mg ONCE ONCE IV 11/17/25 08:15 11/17/25 08:17 DC 11/17/25 09:06 Chlordiazepoxide HCl (Librium Capsule) 50 mg ONCE ONCE PO 11/17/25 08:15 11/17/25 08:17 DC 11/17/25 09:06 [place] [id number] Ph: [phone] DIAGNOSTIC IMAGING Diagnostic Imaging Report : [id number] Signed PATIENT: RAMÍREZ WYLIE ACCT: [id number] UNIT: [id number] : 1960 LOC: ER ROOM / BED: / AGE / SEX: 65 / M ADM STATUS: REG ER SERVICE 3 ORDERING PHYSICIAN: JÚNIOR NAVARRO MD PROCEDURE(s): CXRP - CHEST PORTABLE REASON: weakness ORDER NUMBER(s): [id number], ACCESSION NUMBER(s): [id number] INDICATION: weakness TECHNIQUE: Frontal view of the chest. COMPARISON: XY CHEST PORTABLE on DOS: 11/02/24, XY CHEST PORTABLE on DOS: 05/31/24, XY CHEST XRAY 1 VIEW on DOS: 12/22/23, XY CHEST PORTABLE on DOS: 04/15/23 FINDINGS: . The heart and mediastinal contours are grossly unremarkable. There is no evidence of pleural disease. The lungs are clear. The bony structures of the chest are intact without fracture. IMPRESSION: 1. No evidence of acute disease. ATED BY: DANIELA HASSAN MD DICTATED DATE/TIME: 11/17/25849 SIGNED BY: DANIELA HASSAN MD SIGNED DATE/TIME: 11/17/25849 CC: Time of 1ST Reevaluation: 08:35 Reevaluation 1ST: Unchanged Patient Education/Counseling: Diagnosis, Treatment, Prognosis Family Education/Counseling: No Family Present SEPSIS Sepsis Screen Date sepsis recognized/suspect: Nov 17, 2025 Time Sepsis recognized/suspect: 723 Recent Procedure: No On Antibiotic Therapy: No Respiratory Rate >20: No Heart Rate >90: Yes Temp<36 C (96.8 F) or >38.3 C: No SBP <90 or MAP <65 mmHG: No New Acute Mental Status Change: No Is the patient on CPAP, BIPAP,: No Physician Orders Urinalysis (11/17/25 08:14) Chest Portable (11/17/25 08:14) Electrocardigram (11/17/25 08:14) Blood Culture (11/17/25 08:14) Troponin-I Hs (11/17/25 09:14) Troponin-I Hs (11/17/25 11:14) Electrocardigram (11/17/25 09:14) Electrocardigram (11/17/25 11:14) Vital Signs Date Time Temp Pulse Resp B/P (MAP) Pulse Ox O2 Delivery O2 Flow Rate FiO2 11/17/25 08:00 115 16 125/71 (89) 97 11/17/25 08:00 116 11/17/25 07:35 97.8 117 20 137/71 (93) 98 97.8 11/17/25 07:24 97.4 122 18 133/65 99 97.4 11/17/25 07:24 119 16 97 Nasal Cannula* 2 28 Laboratory Tests Test 11/17/25 08:28 Lactic Acid Level 3.4 mmol/L (0.4-2.0) *H White Blood Count 6.8 10^3/uL (4.4-10.8) Medications Medications Dose Ordered Sig/Emmie Route Start Time Stop Time Status Last Admin Dose Admin Chlordiazepoxide HCl 50 mg ONCE ONCE PO 11/17/25 08:15 11/17/25 08:17 DC 11/17/25 09:06 Ketorolac Tromethamine 15 mg ONCE ONCE IV 11/17/25 08:15 11/17/25 08:17 DC 11/17/25 09:04 Midazolam HCl 5 mg ONCE ONCE IV 11/17/25 08:15 11/17/25 08:17 DC 11/17/25 09:06 Ondansetron HCl 4 mg ONCE ONCE IV 11/17/25 08:15 11/17/25 08:17 DC 11/17/25 09:00 Pantoprazole Sodium 40 mg ONCE ONCE IV 11/17/25 08:15 11/17/25 08:17 DC 11/17/25 09:03 Sodium Chloride 2,400 ml @ 2,400 mls/hr ONCE ONCE IV 11/17/25 08:15 11/17/25 09:14 DC 11/17/25 09:06 Departure 1 Departure Time of Disposition: 09:30 (Patient presenting with the acute alcohol withdrawal. Patient given fluids benzos and we will admit patient for further workup) Impression: Primary Impression: Acute hyperactive alcohol withdrawal delirium Disposition: ADMITTED INPATIENT Admit to: Tele Condition: Guarded Critical Care Note Critical Care Time?: Yes Critical care comment: Acute alcohol withdrawal Authorized and Performed by: Júnior Navarro MD Total critical care time: Approximately 38 minutes Due to a high probability of clinically significant, life threatening deterioration, the patient required my highest level of preparedness to intervene emergently and I personally spent this critical care time directly and personally managing the patient. This critical care time included obtaining a history; examining the patient; pulse oximetry; ordering and review of studies; arranging urgent treatment with development of a management plan; evaluation of patient's response to treatment; frequent reassessment; and, discussions with other providers. This critical care time was performed to assess and manage the high probability of imminent, life-threatening deterioration that could result in multi-organ failure. It was exclusive of separately billable procedures and treating other patients and teaching time. Please see my other sections and the rest of the note for further information on patient assessment and treatment. Stability Stability form required: No Heart Score Heart Score: Heart Score Response (Comments) Value History N/A 0 EKG N/A 0 Age N/A 0 Risk Factors N/A 0 Troponin N/A 0 Total 0 I personally scribed for JÚNIOR NAVARRO MD ([email or web address]) on 11/17/25 at 08:25. Electronically submitted by Rosa Zuluaga ([email or web address]). I personally scribed for JÚNIOR NAVARRO MD ([email or web address]) on 11/17/25 at 08:55. Electronically submitted by Rosa Zuluaga ([email or web address]). JÚNIOR NAVARRO MD Nov 17, 2025 08:25
--- NOTE | 2025-11-17 08:52 | DVH ---
INDICATION: weakness TECHNIQUE: Frontal view of the chest. COMPARISON: XY CHEST PORTABLE on DOS: 11/02/24, XY CHEST PORTABLE on DOS: 05/31/24, XY CHEST XRAY 1 VIEW on DOS: 12/22/23, XY CHEST PORTABLE on DOS: 04/15/23 FINDINGS: . The heart and mediastinal contours are grossly unremarkable. There is no evidence of pleural disease. The lungs are clear. The bony structures of the chest are intact without fracture. IMPRESSION: 1. No evidence of acute disease.
[2025-11-17 08:57] LABS: Hematocrit 44.8 % (41.0-53.0); Hemoglobin 15.5 g/dL (13.5-17.5); Mean Corpuscular Hemoglobin 32.0 pg (28.0-32.0); Mean Corpuscular Volume 92.3 fL (80.0-100.0); Nucleated Red Blood Cells % 0.1 %
[2025-11-17] MEDS: ONDANSETRON HCL 4 MG/2 ML VIAL IV ONE (09:00)
[2025-11-17] MEDS: PANTOPRAZOLE 40 MG/10 ML VIAL INJ IV ONE (09:03)
[2025-11-17] MEDS: KETOROLAC TROMETH 30 MG/ML 1ML VIAL IV ONE (09:04)
[2025-11-17 09:05] LABS: Chloride 104 mmol/L (98-107); Potassium 3.7 mmol/L (3.5-5.1); Sodium 139 mmol/L (136-145)
[2025-11-17 09:06] LABS: Anion Gap 17 (5-15); Calcium 9.1 mg/dL (8.7-10.4)
[2025-11-17] MEDS: SODIUM CHLORIDE 0.9% 2,400 ML IV ONE (09:06)
[2025-11-17] MEDS: MIDAZOLAM HCL 5 MG/ML-1ML VIAL IV ONE (09:06)
[2025-11-17 09:11] LABS: BUN/Creatinine Ratio 15.3 (10.0-20.0); Blood Urea Nitrogen 17 mg/dL (9-23)
[2025-11-17 09:12] LABS: Carbon Dioxide 18 mmol/L (20-31); Glucose 122 mg/dL (74-106)
[2025-11-17 09:21] LABS: Lactic Acid w/Reflex 3.4 mmol/L (0.4-2.0)
[2025-11-17] MEDS ORDERED: LORazepam 2MG/ML-1ML VIAL IV PRN (12:15)
[2025-11-17] MEDS ORDERED: DOCUSATE SOD 100 MG CAP PO PRN (12:15)
[2025-11-17] MEDS ORDERED: NITROGLYCERIN 0.4 MG SL TAB SL PRN (12:15)
[2025-11-17] MEDS ORDERED: ONDANSETRON HCL 4 MG/2 ML VIAL IV PRN (12:15)
--- NOTE | 2025-11-17 12:50 | DVHHP2 ---
History of Present Illness Reason for Visit: dizziness/headache History of Present Illness 65-year-old male with a significant past medical history of coronary artery disease status post cardiac stent placement three weeks ago by Dr. Oliveira, deep vein thrombosis, pulmonary embolism, hypertension, bipolar disorder, schizophrenia, and chronic alcohol use disorder, currently on Plavix, presents from home with confusion, dizziness, and heavy alcohol use. The patient lives alone and reports feeling increasingly depressed and confused over the past several days. He acknowledges a long-standing history of heavy alcohol use, stating that he drinks approximately 2 pints of vodka daily in addition to five 24-oz beers, and notes that over the past week his alcohol intake has increased beyond his usual baseline. His last alcohol intake was yesterday. He denies any current suicidal or homicidal ideation, and denies chest pain, shortness of breath, or palpitations. In the emergency department, the patient was treated with Librium, Toradol, Protonix, and IV normal saline. He was noted to have conf usion and dizziness, prompting further evaluation. Laboratory studies demonstrated mild metabolic acidosis with lactate 3.4, CO2 18, and anion gap 17. Blood glucose was 122, serum ethanol level was 18.2, and urine toxicology was negative. CBC was unremarkable. Chest X-ray was unremarkable. The patient denies marijuana or other illicit drug use. Given his acute alcohol intoxication, metabolic acidosis likely secondary to alcohol use, underlying psychiatric disease, and recent cardiac stent placement requiring antiplatelet therapy, admission is warranted for monitored detoxification, medical stabilization, and psychiatric evaluation. Past Medical History See HPI above Past Surgical History See HPI above Family History Reviewed, non-contributory to the management of this case. Past Social History Patient does drank daily he took two pt of vodka yesterday along with five beers he is just smoked marijuana denies any other drug or or tobacco use Review of Systems Constitutional: No: Fever, Chills, Sweats, Weakness, Malaise, Other Eyes: No: Pain, Vision change, Conjunctivae inflammation, Eyelid inflammation, Other, Redness ENT: No: Ear pain, Ear discharge, Nose pain, Nose discharge, Nose congestion, Mouth pain, Mouth swelling, Throat pain, Throat swelling, Other Respiratory: No: Cough, Dry, Shortness of breath, SOB with excertion, Wheezing, Hemoptysis, Pleuritic Pain, Sputum, Wheezing, Other Cardiovascular: No: Chest Pain, Palpitations, Orthopnea, Paroxysmal Noc. Dyspnea, Edema, Lt Headedness, Other Gastrointestinal: Other (Dizziness); No: Nausea, Vomiting, Abdominal Pain, Diarrhea, Constipation, Melena, Hematochezia Genitourinary: No Dysuria, No Frequency, No Incontinence, No Hematuria, No Retention, No Other Musculoskeletal: No: other, neck pain, shoulder pain, arm pain, back pain, hand pain, leg pain, foot pain Skin: No: Rash, Lesions, Jaundice, Bruising, Other Neurological: Weakness, Confusion; No: Numbness, Incoordination, Change in s peech, Seizures, Other Allergies: Coded Allergies: Sulfa Antibiotics (Verified Allergy, Unknown, 10/14/25) Medications Current Medications Medications Dose Ordered Sig/Emmie Route Start Time Stop Time Status Last Admin Dose Admin Chlordiazepoxide HCl 50 mg Q8H PO 11/17/25 12:15 11/18/25 04:16 UNV Chlordiazepoxide HCl 50 mg Q12HR PO 11/18/25 10:00 11/18/25 22:01 UNV Chlordiazepoxide HCl 25 mg Q12HR PO 11/19/25 10:00 11/19/25 22:01 UNV Chlordiazepoxide HCl 25 mg QAM PO 11/20/25 07:00 11/20/25 07:01 UNV Lorazepam 1 mg Q2HPRN PRN IV 11/17/25 12:15 UNV Folic Acid 1 mg/ Magnesium Sulfate 8 meq/ Multivitamins 10 ml/Thiamine HCl 100 mg/Sodium Chloride 1,013.2 ml @ 126.247 mls/hr DAILY@1800 INJ 11/17/25 18:00 UNV Sodium Chloride 1,000 ml @ 120 mls/hr Q8H20M IV 11/17/25 12:15 UNV Ondansetron HCl 4 mg Q4HP PRN IV 11/17/25 12:15 UNV Docusate Sodium 100 mg BIDPRN PRN PO 11/17/25 12:15 UNV Enoxaparin Sodium 40 mg DAILY SC 11/18/25 10:00 UNV Nitroglycerin 0.4 mg Q5MINP PRN SL 11/17/25 12:15 UNV Exam Vital Signs Vital Signs Date Time Temp Pulse Resp B/P (MAP) Pulse Ox O2 Delivery O2 Flow Rate FiO2 11/17/25 12:00 106 11/17/25 10:33 20 121/79 (93) 98 11/17/25 07:35 97.8 97.8 11/17/25 07:24 Nasal Cannula* 2 28 General Appearance: Alert, Oriented X3, Cooperative, No acute distress HEENT: Atraumatic, PERRLA, EOMI, Mucous membr. moist/pink Respiratory: Clear to auscultation, Normal air movement Cardiovascular: Regular rate, Normal S1, Normal S2, No murmurs Abdominal: Normal bowel sounds, Soft, No tenderness, No hepatospenomegaly Extremities: No clubbing, No cyanosis, No edema, Normal pulses, No tenderness/swelling Skin: No rashes, No breakdown, No significant lesion Neuro: Normal speech, Strength at 5/5 X4 ext, Normal tone, Sensation intact, Cranial nerves 3-12 NL, Other (Neuro nonfocal) Psych/Mental Status: Mental status NL, Mood NL Labs/Xrays Chest x-ray unremarkable I reviewed labs, imaging CT scan abdomen pelvis, EKG and all diagnostic studies on this patient from ED records and the medical chart Labs Test 11/17/25 12:00 11/17/25 08:28 11/17/25 07:30 Range/Units White Blood Count 6.8 4.4-10.8 10^3/uL Red Blood Count 4.85 4.5-5.90 10^6/uL Hemoglobin 15.5 13.5-17.5 g/dL Hematocrit 44.8 41.0-53.0 % Mean Corpuscular Volume 92.3 80.0-100.0 fL Mean Corpuscular Hemoglobin 32.0 28.0-32.0 pg Mean Corpuscular Hemoglobin Concent 34.7 32.0-36.0 g/dL Red Cell Distribution Width 14.9 H 11.8-14.3 % Platelet Count 178 140-450 10^3/uL Mean Platelet Volume 7.7 6.9-10.8 fL Neutrophils (%) (Auto) 79.2 37.0-80.0 % Lymphocytes (%) (Auto) 10.7 10.0-50.0 % Monocytes (%) (Auto) 9.4 0.0-12.0 % Eosinophils (%) (Auto) 0.1 0.0-7.0 % Basophils (%) (Auto) 0.6 0.0-2.0 % Neutrophils # (Auto) 5.4 1.6-8.6 10 ^3/uL Lymphocytes # (Auto) 0.7 0.4-5.4 10 ^3/uL Monocytes # (Auto) 0.6 0-1.3 10 ^3/uL Eosinophils # (Auto) 0 0-0.8 10 ^3/uL Basophils # (Auto) 0 0-0.2 10 ^3/uL Nucleated Red Blood Cells 0.1 % Sodium Level 139 136-145 mmol/L Potassium Level 3.7 3.5-5.1 mmol/L Chloride Level 104 98-107 mmol/L Carbon Dioxide Level 18 L 20-31 mmol/L Anion Gap 17 H 5-15 Blood Urea Nitrogen 17 9-23 mg/dL Creatinine 1.11 0.700-1.30 mg/dL Glomerular Filtration Rate Calc 74 >90 mL/min BUN/Creatinine Ratio 15.3 10.0-20.0 Serum Glucose 122 H 74-106 mg/dL Calcium Level 9.1 8.7-10.4 mg/dL Plasma/Serum Blood Alcohol 18.2 H <10 mg/dL POC Glucose 212 H 70-106 mg/dl SEPSIS Sepsis Screen Date sepsis recognized/suspect: Nov 17, 2025 Time Sepsis recognized/suspect: 723 Recent Procedure: No On Antibiotic Therapy: No Respiratory Rate >20: No Heart Rate >90: Yes Temp<36 C (96.8 F) or >38.3 C: No SBP <90 or MAP <65 mmHG: No New Acute Mental Status Change: No Is the patient on CPAP, BIPAP,: No Physician Orders Urinalysis (11/17/25 08:14) Chest Portable (11/17/25 08:14) Electrocardigram (11/17/25 08:14) Blood Culture (11/17/25 08:14) Troponin-I Hs (11/17/25 11:14) Electrocardigram (11/17/25 09:14) Electrocardigram (11/17/25 11:14) Chlordiazepoxide Hcl Capsule (Librium Ca (11/17/25 12:15) Chlordiazepoxide Hcl Capsule (Librium Ca (11/18/25 10:00) Chlordiazepoxide Hcl Capsule (Librium Ca (11/19/25 10:00) Chlordiazepoxide Hcl Capsule (Librium Ca (11/20/25 07:00) Blood Alcohol (11/17/25 12:13) Drug Screen (11/17/25 12:13) Hunter Skin Diver (11/17/25 12:13) Magnesium (11/17/25 12:13) Lorazepam 2mg/Ml Inj (Ativan Inj) (11/17/25 12:15) Etoh Withdrawal Assessment (11/17/25 12:13) Etoh Withdrawal Assessment NOW (11/17/25 12:13) Lactic Acid W/ Reflex Order (11/17/25 12:13) Folic Acid... (11/17/25 18:00) Etoh Withdrawal Assessment (11/17/25 12:13) Head Without Contrast (11/17/25 12:13) *Tele Psych Consult (11/17/25 12:13) Admit (11/17/25 12:13) Allergies (11/17/25 12:13) Code Status (11/17/25 12:13) Sodium Chloride 0.9% (11/17/25 12:15) Ondansetron Hcl (Zofran) (11/17/25 12:15) Docusate Sodium Capsule (Colace Capsule) (11/17/25 12:15) Enoxaparin Sodium (Lovenox) (11/18/25 10:00) Complete Blood Count (11/18/25 04:00) Comprehensive Metabolic Panel (11/18/25 04:00) Cardiac Diet-2gna,Lofat,Lochol (11/17/25 Lunch) Condition: Stable (11/17/25 12:13) BRP (11/17/25 12:13) Sequential Compression Device (11/17/25 ) Nitroglycerin Sublingual (Ntrostat Subli (11/17/25 12:15) Stat Ekg For Chest Pain (11/17/25 12:13) Notify Of Changes From Base (11/17/25 12:13) Billet Assembler For 24 Hours (11/17/25 12:13) Emergency Dysrhythmia Protocol (11/17/25 12:13) Rhythm Strips Once Every Shift (11/17/25 12:13) Oxygen By Nasal Cannula (11/17/25 12:13) Vital Signs Date Time Temp Pulse Resp B/P (MAP) Pulse Ox O2 Delivery O2 Flow Rate FiO2 11/17/25 12:00 106 11/17/25 10:33 107 20 121/79 (93) 98 11/17/25 08:00 115 16 125/71 (89) 97 11/17/25 08:00 116 11/17/25 07:35 97.8 117 20 137/71 (93) 98 97.8 11/17/25 07:24 97.4 122 18 133/65 99 97.4 11/17/25 07:24 119 16 97 Nasal Cannula* 2 28 Laboratory Tests Test 11/17/25 08:28 11/17/25 12:00 Lactic Acid Level 3.4 mmol/L (0.4-2.0) *H Pending White Blood Count 6.8 10^3/uL (4.4-10.8) Medications Medications Dose Ordered Sig/Emmie Route Start Time Stop Time Status Last Admin Dose Admin Chlordiazepoxide HCl 50 mg ONCE ONCE PO 11/17/25 08:15 11/17/25 08:17 DC 11/17/25 09:06 50 MG Ketorolac Tromethamine 15 mg ONCE ONCE IV 11/17/25 08:15 11/17/25 08:17 DC 11/17/25 09:04 15 MG Midazolam HCl 5 mg ONCE ONCE IV 11/17/25 08:15 11/17/25 08:17 DC 11/17/25 09:06 5 MG Ondansetron HCl 4 mg ONCE ONCE IV 11/17/25 08:15 11/17/25 08:17 DC 11/17/25 09:00 4 MG Pantoprazole Sodium 40 mg ONCE ONCE IV 11/17/25 08:15 11/17/25 08:17 DC 11/17/25 09:03 40 MG Sodium Chloride 2,400 ml @ 2,400 mls/hr ONCE ONCE IV 11/17/25 08:15 11/17/25 09:14 DC 11/17/25 09:06 2,400 MLS/HR Assessment/Plan Assessment/Plan 65-year-old male admitted for acute alcohol intoxication with withdrawal risk and metabolic acidosis, in the setting of heavy chronic alcohol use, psychiatric comorbidities, and recent coronary stent placement, requiring inpatient mo nitoring, detoxification, and multidisciplinary care. Acute alcohol intoxication with withdrawal risk Heavy daily alcohol intake with recent escalation last use yesterday CIWA protocol initiated Scheduled librium and PRN ativan Thiamine, folate, multivitamin supplementation Seizure and fall precautions acute Metabolic acidosis, likely alcohol-related Lactate 3.4 Anion gap 17, CO2 18 cont IV fluids for volume resuscitation Trend lactate and BMP Acute confusion and dizziness Likely multifactorial (alcohol intoxication vs withdrawal) CT head ordered to rule out intracranial pathology Neuro checks monitor for seizure precaution chronic Bipolar disorder and schizophrenia Denies SI/HI at this time Psychiatry consult requested Coronary artery disease status post recent stent no chest pain Stent placed approx [address] Oliveira Continue Plavix Monitor for bleeding risk during detox History of DVT and pulmonary embolism No signs of acute recurrence Monitor closely during hospitalization ppx lovenox for now Hypertension Monitor blood pressure Resume home antihypertensives as appropriate chronic problems Coronary artery disease status post stent History of DVT History of pulmonary embolism Bipolar disorder Schizophrenia Alcohol use disorder Hypertension FEN / PPx Fluids: IV normal saline Electrolytes: Monitor BMP daily Nutrition:cardiac diet as tolerated DVT Prophylaxis: SCDs (pharmacologic prophylaxis per bleeding risk) GI Prophylaxis: Protonix Disposition Admit to telemetry/medical floor for alcohol detoxification, monitoring for wit hdrawal complications, correction of metabolic acidosis, psychiatric evaluation, Plan discussed with: Patient My Orders Orders - GIOVANNA PEREZ DNP Procedure Category Date Status Time Chlordiazepoxide Hcl PHA 11/17/25 Logged Capsule (Librium Ca 12:15 Chlordiazepoxide Hcl PHA 11/18/25 Logged Capsule (Librium Ca 10:00 Chlordiazepoxide Hcl PHA 11/19/25 Logged Capsule (Librium Ca 10:00 Chlordiazepoxide Hcl PHA 11/20/25 Logged Capsule (Librium Ca 07:00 Blood Alcohol LAB 11/17/25 Logged 12:13 Drug Screen LAB 11/17/25 Logged 12:13 Hunter Skin Diver ED NURSING 11/17/25 Transmitted 12:13 Magnesium LAB 11/17/25 Logged 12:13 Lorazepam 2mg/Ml Inj PHA 11/17/25 Logged (Ativan Inj) 12:15 Etoh Withdrawal GILBERTO 11/17/25 In Process Assessment 12:13 Etoh Withdrawal GILBERTO 11/17/25 In Process Assessment 12:13 Lactic Acid W/ Reflex LAB 11/17/25 Logged Order 12:13 Folic Acid... PHA 11/17/25 Logged 18:00 Etoh Withdrawal GILBERTO 11/17/25 In Process Assessment 12:[address] 11/17/25 Logged 12:13 *Tele Psych Consult CONS 11/17/25 Transmitted 12:13 Admit ADMIT 11/17/25 Transmitted 12:13 Allergies GILBERTO 11/17/25 In Process 12:13 Code Status CODE 11/17/25 Transmitted 12:13 Sodium Chloride 0.9% PHA 11/17/25 Logged 12:15 Ondansetron Hcl PHA 11/17/25 Logged (Zofran) 12:15 Docusate Sodium PHA 11/17/25 Logged Capsule (Colace 12:15 Enoxaparin Sodium PHA 11/18/25 Logged (Lovenox) 10:00 Complete Blood Count LAB 11/18/25 Verified 04:00 Comprehensive LAB 11/18/25 Verified Metabolic Panel 04:00 Cardiac DIET 11/17/25 Transmitted Diet-2gna,Lofat,Lochol Lunch Condition: Stable GILBERTO 11/17/25 In Process 12:13 BRP GILBERTO 11/17/25 In Process 12:13 Sequential GILBERTO 11/17/25 In Process Compression Device Nitroglycerin PHA 11/17/25 Logged Sublingual (Ntrostat 12:15 Stat Ekg For Chest GILBERTO 11/17/25 In Process Pain 12:13 Notify Md Of Changes GILBERTO 11/17/25 In Process From Base 12:13 Billet Assembler For GILBERTO 11/17/25 In Process 24 Hours 12:13 Emergency Dysrhythmia GILBERTO 11/17/25 In Process Protocol 12:13 Rhythm Strips Once GILBERTO 11/17/25 In Process Every Shift 12:13 Oxygen By Nasal RT 11/17/25 Transmitted Cannula 12:13 Date of Service: Nov 17, 2025 Billing Provider: GIOVANNA PEREZ DNP Common Visit Codes: [id number] INP/OBS CARE (HIGH) GIOVANNA PEREZ DNP Nov 17, 2025 12:50
[2025-11-17 13:11] LABS: Magnesium 1.9 mg/dL (1.6-2.6)
--- NOTE | 2025-11-17 13:20 | DVH ---
EXAM DESCRIPTION: CT HEAD WITHOUT CONTRAST CLINICAL HISTORY: eval for acute headache and dizziness COMPARISON: CT HEAD WITHOUT CONTRAST on DOS: 03/30/24, HEAD WITHOUT CONTRAST on DOS: 02/14/22 TECHNIQUE: Noncontrast CT head was performed. Coronal MPR images were generated. CTDI/ DLP = 69.16 / 1362.63. Dose reduction technique with one or more of the following methods was performed: Automated exposure control, adjustment of the mA and/or kV according to patient size, use of iterative reconstruction technique. FINDINGS: No evidence of acute intracranial hemorrhage. No mass effect. No extra-axial collections of fluid or blood. The brain is normal in attenuation. The ventricles and sulci are normal in size for age. Clear basal cisterns. The calvarium is intact. Mild soft tissue swelling at the right parieto-occipital scalp. The paranasal sinuses and mastoid air cells are clear. IMPRESSION: 1. No acute intracranial findings.
[2025-11-17] MEDS: SODIUM CHLORIDE 0.9% 1,000 ML IV SCH (14:05)
[2025-11-17 14:45] VITALS: BP 169/87; PULSE 106; RESP 22; TEMP 98.4; O2SAT 95
[2025-11-17] MEDS ORDERED: CLOP75TA28 PO (15:11)
[2025-11-17 16:38] VITALS: BP 181/100; PULSE 98; RESP 20; TEMP 96.9; O2SAT 98
[2025-11-17] MEDS: HYDROcodone-ACET 5/325MG TAB PO PRN (16:59)
[2025-11-17] MEDS: FOLIC ACID 1 MG, MAGNESIUM SULF SDV 50% 8 MEQ, MULTIPLE VITAMIN 10 ML, THIAMINE INJ 100... INJ SCH (18:05)
[2025-11-17 20:00] VITALS: PULSE 94; PULSE 95; RESP 18; O2SAT 96
[2025-11-17 21:00] VITALS: BP 141/78; PULSE 95; RESP 20; TEMP 98.2; O2SAT 96
--- NOTE | 2025-11-17 22:05 | DVHINCON2 ---
Date of Service if different f: Nov 17, 2025 Consultation ([facility]) Labs Laboratory Tests Test 11/17/25 07:30 11/17/25 08:28 11/17/25 12:00 Bedside Glucose 212 mg/dl (70-106) White Blood Count 6.8 10^3/uL (4.4-10.8) Red Blood Count 4.85 10^6/uL (4.5-5.90) Hemoglobin 15.5 g/dL (13.5-17.5) Hematocrit 44.8 % (41.0-53.0) Mean Corpuscular Volume 92.3 fL (80.0-100.0) Mean Corpuscular Hemoglobin 32.0 pg (28.0-32.0) Mean Corpuscular Hemoglobin Concent 34.7 g/dL (32.0-36.0) Red Cell Distribution Width 14.9 % (11.8-14.3) Platelet Count 178 10^3/uL (140-450) Mean Platelet Volume 7.7 fL (6.9-10.8) Neutrophils (%) (Auto) 79.2 % (37.0-80.0) Lymphocytes (%) (Auto) 10.7 % (10.0-50.0) Monocytes (%) (Auto) 9.4 % (0.0-12.0) Eosinophils (%) (Auto) 0.1 % (0.0-7.0) Basophils (%) (Auto) 0.6 % (0.0-2.0) Neutrophils # (Auto) 5.4 10 ^3/uL (1.6-8.6) Lymphocytes # (Auto) 0.7 10 ^3/uL (0.4-5.4) Monocytes # (Auto) 0.6 10 ^3/uL (0-1.3) Eosinophils # (Auto) 0 10 ^3/uL (0-0.8) Basophils # (Auto) 0 10 ^3/uL (0-0.2) Nucleated Red Blood Cells 0.1 % Sodium Level 139 mmol/L (136-145) Potassium Level 3.7 mmol/L (3.5-5.1) Chloride Level 104 mmol/L (98-107) Carbon Dioxide Level 18 mmol/L (20-31) Anion Gap 17 (5-15) Blood Urea Nitrogen 17 mg/dL (9-23) Creatinine 1.11 mg/dL (0.700-1.30) Glomerular Filtration Rate Calc 74 mL/min (>90) BUN/Creatinine Ratio 15.3 (10.0-20.0) Serum Glucose 122 mg/dL (74-106) Calcium Level 9.1 mg/dL (8.7-10.4) Lactic Acid Level 1.3 mmol/L (0.4-2.0) Magnesium Level 1.9 mg/dL (1.6-2.6) Troponin I High Sensitivity 30 ng/L (</=54) Plasma/Serum Blood Alcohol < 3.0 mg/dL (<10) Appetite: Fair Appearance: Stated age, Clean Psychomotor activity: WNL Behavioral: Cooperative Eye contact: Appropriate Speech: WNL Affect: Appropriate Mood: Anxious Thought processes: Linear/Goal-directed Thought content: WNL Suicidal ideations: Absent Homicidal ideations: Absent Orientation: Person, Place, Time, Situation Memory intact: Recent Intellect: Average Abstractability: WNL Concentration: Adequate Attention: Adequate Judgement: WNL Insight: Fair Vitals Vital Signs Date Time Temp Pulse Resp B/P (MAP) Pulse Ox O2 Delivery O2 Flow Rate FiO2 11/17/25 16:38 96.9 98 20 181/100 (127) 98 96.9 11/17/25 14:45 Room Air* 0 21 Current medications Current Medications Medications Dose Ordered Sig/Emmie Route Start Time Stop Time Status Last Admin Dose Admin Chlordiazepoxide HCl 50 mg Q8H PO 11/17/25 17:00 11/18/25 09:01 11/17/25 16:59 50 MG Chlordiazepoxide HCl 50 mg Q12HR PO 11/18/25 10:00 11/18/25 22:01 Chlordiazepoxide HCl 25 mg Q12HR PO 11/19/25 10:00 11/19/25 22:01 Chlordiazepoxide HCl 25 mg QAM PO 11/20/25 07:00 11/20/25 07:01 Lorazepam 1 mg Q2HPRN PRN IV 11/17/25 12:15 Folic Acid 1 mg/ Magnesium Sulfate 8 meq/ Multivitamins 10 ml/Thiamine HCl 100 mg/Sodium Chloride 1,013.2 ml @ 126.247 mls/hr DAILY@1800 INJ 11/17/25 18:00 11/17/25 18:05 126.247 MLS/HR Sodium Chloride 1,000 ml @ 120 mls/hr Q8H20M IV 11/17/25 12:15 11/17/25 20:40 120 MLS/HR Ondansetron HCl 4 mg Q4HP PRN IV 11/17/25 12:15 Docusate Sodium 100 mg BIDPRN PRN PO 11/17/25 12:15 Enoxaparin Sodium 40 mg DAILY SC 11/18/25 10:00 Nitroglycerin 0.4 mg Q5MINP PRN SL 11/17/25 12:15 Acetaminophen/ Hydrocodone Bitart 1 tab Q6HPRN PRN PO 11/17/25 15:30 11/17/25 16:59 1 TAB Quetiapine Fumarate 200 mg HS PO 11/17/25 22:00 11/17/25 21:11 200 MG Medication adjusted: No Psychotherapy provided: Yes History of Present Illness Reason for Consult : evaluation HPI : This is a 65-year-old male with prior history of mood disorder and alcohol abuse presents here for ALOC after several days of heavy alcohol use. Patient is evaluated via telepsychiatry. He reports mood as not doing so well. he is concerned with his alcohol intake and wants to stay sober. He reports using alcohol since high school and over the last several decades has abused alcohol. He reports in the last 2-3 days, drinking several pints of vodka and beers daily. He often feels depressed. He denies anhedonia or feeling hopeless. She reports being motivated to stop drinking. He denies suicidal/homicidal ideation. He reports years ago, had visual hallucinations of people with alcohol withdrawal only, but denies any recent auditory or visual hallucinations or paranoid thoughts. He reports poor without Seroquel use. Appetite is normal. He is often craving and experiencing withdrawal when he tries to get sober. He has tried AA which has not worked for him. No prior rehab programs and he declines at this time. Past Psychiatric History : He denies prior psych admissions, holds, or suicide attempts. He reports use of Seroquel 200mg for many years. This helps to relax before bed and sleep. He is unable to sleep without Seroquel and wishes to continue. He is connected and seeing a psychiatrist. She denies use of therapist. He reports prior diagnosis of " Bipolar and schizophrenia" he does not recall any prior ronny symptoms. He had visual hallucinations only with alcohol withdrawal. Past Medical History : Hx of DVT, liver disease, HTN Social History : Patient has his own housing, lives alone. He reports 3 prior marriages and now has long term care pharmacist gf and his support system. He reports use of alcohol since high school. He uses marijuana occasionally and denies other substances or IVD. He reports sister with hx of bipolar disorder. Diagnosis: Unspecified mood disorder, alcohol abuse : Plan Patient presently denies suicidal/homicidal ideation, future-oriented and motivated to stop alcohol abuse. Patient may discharge after medical clearance and continue outpatient mental health services. continue Seroquel 200mg po qhs YUNG MARKS DNP Nov 17, 2025 22:05
[2025-11-18] VITALS (8 sets, daily range): BP systolic 127–149; BP diastolic 70–91; PULSE 69–84; RESP 18–20; TEMP 98–99.5; O2SAT 93–97
[2025-11-18 07:13] LABS: Hematocrit 41.9 % (41.0-53.0); Hemoglobin 14.3 g/dL (13.5-17.5); Mean Corpuscular Hemoglobin 32.4 pg (28.0-32.0); Mean Corpuscular Volume 94.7 fL (80.0-100.0); Nucleated Red Blood Cells % 0.3 %
[2025-11-18 07:26] LABS: Alanine Aminotransferase 20 U/L (7-40); Albumin 3.4 g/dL (3.2-4.8); Alkaline Phosphatase 73 U/L (46-116); Anion Gap 9 (5-15); BUN/Creatinine Ratio 25.0 (10.0-20.0); Carbon Dioxide 23 mmol/L (20-31); Glucose 88 mg/dL (74-106); Potassium 3.6 mmol/L (3.5-5.1); Sodium 140 mmol/L (136-145); Total Protein 5.9 g/dL (5.7-8.2)
[2025-11-18 07:27] LABS: Bilirubin, Total 1.0 mg/dL (0.2-1.0); Blood Urea Nitrogen 23 mg/dL (9-23); Calcium 8.2 mg/dL (8.7-10.4); Chloride 108 mmol/L (98-107)
[2025-11-18] MEDS: ENOXAPARIN SOD 40 MG/0.4 ML SYRINGE SC SCH (09:21)
[2025-11-18] MEDS: SODIUM CHLORIDE 0.9% 1,000 ML IV SCH (14:20)
[2025-11-18] MEDS: THIAMINE HCL 100 MG TAB PO ONE (17:54)
[2025-11-18] MEDS: MULTIPLE VITAMIN TAB PO ONE (17:54)
[2025-11-18] MEDS: MAGNESIUM OXIDE 400 MG TAB PO ONE (17:55)
[2025-11-18] MEDS: FOLIC ACID 1 MG TAB PO ONE (17:55)
[2025-11-18] MEDS: CALCIUM CARB 500 MG CHEW TAB PO ONE (22:30)
[2025-11-19 01:00] VITALS: BP 151/76; PULSE 90; RESP 18; TEMP 97.6; O2SAT 97
[2025-11-19 05:08] VITALS: BP 156/79; PULSE 92; RESP 14; TEMP 98.6; O2SAT 97
[2025-11-19 08:00] VITALS: PULSE 77; PULSE 83; RESP 20; O2SAT 96
[2025-11-19 09:00] VITALS: BP 156/93; PULSE 86; RESP 20; TEMP 97.4; O2SAT 96
[2025-11-19] MEDS: MAGNESIUM OXIDE 400 MG TAB PO SCH (09:48)
[2025-11-19] MEDS: FOLIC ACID 1 MG TAB PO SCH (09:48)
[2025-11-19] MEDS: THIAMINE HCL 100 MG TAB PO SCH (09:49)
[2025-11-19] MEDS: CALCIUM CARB 500 MG CHEW TAB PO SCH (09:50)
[2025-11-19] MEDS: MULTIPLE VITAMIN TAB PO SCH (09:50)
--- NOTE | 2025-11-19 10:34 | DVHPN2 ---
Reviewed: Care Plan, H&P, Labs, Medications, Previous Orders, Radiology Changes from previous H/P or p: No Changes General: Per HPI Eyes: No Pain, No Vision change, No Conjunctivae inflammation, No Eyelid inflammation, No Other, No Redness ENT: No Ear pain, No Ear discharge, No Nose pain, No Nose discharge, No Nose congestion, No Mouth pain, No Mouth swelling, No Throat pain, No Throat swelling, No Other Cardiovascular: No Chest Pain, No Palpitations, No Orthopnea, No Paroxysmal Noc. Dyspnea, No Edema, No Lt Headedness, No Other Respiratory: No Cough, No Dry, No Shortness of breath, No SOB with excertion, No Wheezing, No Hemoptysis, No Pleuritic Pain, No Sputum, No Other Gastrointestinal: No Nausea, No Vomiting, No Abdominal Pain, No Diarrhea, No Constipation, No Melena, No Hematochezia; Other (Dizziness) Genitourinary: No Dysuria, No Frequency, No Incontinence, No Hematuria, No Retention, No Other Musculoskeletal: No other, No neck pain, No shoulder pain, No arm pain, No back pain, No hand pain, No leg pain, No foot pain Skin: No Rash, No Lesions, No Jaundice, No Bruising, No Other Objective Vitals Vital Signs Date Time Temp Pulse Resp B/P (MAP) Pulse Ox O2 Delivery O2 Flow Rate FiO2 11/19/25 09:00 97.4 86 20 156/93 (114) 96 97.4 11/18/25 20:00 Room Air* 0 21 Intake/Output Intake and Output 11/19/25 07:00 Intake Total 4353.2 ml Balance 4353.2 ml Intake Oral 930 ml IV Total 3423.2 ml # Voids 9 General Appearance: Alert, Oriented X3, Cooperative Cardiovascular: Regular rate, Normal S2 Neuro: Normal gait Medications Current Medications Medications Dose Ordered Sig/Emmie Route Start Time Stop Time Status Last Admin Dose Admin Chlordiazepoxide HCl 25 mg Q12HR PO 11/19/25 10:00 11/19/25 22:01 11/19/25 09:51 25 MG Chlordiazepoxide HCl 25 mg QAM PO 11/20/25 07:00 11/20/25 07:01 Lorazepam 1 mg Q2HPRN PRN IV 11/17/25 12:15 Ondansetron HCl 4 mg Q4HP PRN IV 11/17/25 12:15 Docusate Sodium 100 mg BIDPRN PRN PO 11/17/25 12:15 Enoxaparin Sodium 40 mg DAILY SC 11/18/25 10:00 11/19/25 09:54 40 MG Nitroglycerin 0.4 mg Q5MINP PRN SL 11/17/25 12:15 Acetaminophen/ Hydrocodone Bitart 1 tab Q6HPRN PRN PO 11/17/25 15:30 11/19/25 09:52 1 TAB Quetiapine Fumarate 200 mg HS PO 11/17/25 22:00 11/18/25 21:05 200 MG Sodium Chloride 1,000 ml @ 120 mls/hr Q8H20M IV 11/18/25 13:45 11/19/25 06:09 120 MLS/HR Folic Acid 1 mg DAILY PO 11/19/25 10:00 11/19/25 09:48 1 MG Multivitamins 1 tab DAILY PO 11/19/25 10:00 11/19/25 09:50 1 TAB Magnesium Oxide 400 mg DAILY PO 11/19/25 10:00 11/19/25 09:48 400 MG Thiamine HCl 100 mg DAILY PO 11/19/25 10:00 11/19/25 09:49 100 MG Calcium Carbonate 500 mg TIDWM PO 11/19/25 08:00 11/19/25 09:50 500 MG Laboratory Results Laboratory Tests 11/18/25 05:55 Microbiology Microbiology Date/Time Source Procedure Growth Status 11/17/25 08:40 Blood Blood Culture - Preliminary NO GROWTH AFTER 48 HOURS OF INCUBATION. Resulted Labs and/or images reviewed: Labs reviewed by me, Image(s) reviewed by me Assessment/Plan Assessment/Plan 65-year-old male with a significant past medical history of coronary artery disease status post cardiac stent placement three weeks ago by Dr. Oliveira, deep vein thrombosis, pulmonary embolism, hypertension, bipolar disorder, schizophrenia, and chronic alcohol use disorder, currently on Plavix, presents from home with confusion, dizziness, and heavy alcohol use. The patient lives alone and reports feeling increasingly depressed and confused over the past several days. He acknowledges a long-standing history of heavy alcohol use, stating that he drinks approximately 2 pints of vodka daily in addition to five 24-oz beers, and notes that over the past week his alcohol intake has increased beyond his usual baseline. His last alcohol intake was yesterday. He denies any current suicidal or homicidal ideation, and denies chest pain, shortness of breath, or palpitations. In the emergency department, the patient was treated with Librium, Toradol, Protonix, and IV normal saline. He was noted to have confusion and dizziness, prompting further evaluation. Laboratory studies demonstrated mild metabolic acidosis with lactate 3.4, CO2 18, and anion gap 17. Blood glucose was 122, serum ethanol level was 18.2, and urine toxicology was negative. CBC was unremarkable. Chest X-ray was unremarkable. The patient denies marijuana or other illicit drug use. Given his acute alcohol intoxication, metabolic acidosis likely secondary to alcohol use, underlying psychiatric disease, and recent cardiac stent placement requiring antiplatelet therapy, admission is warranted for monitored detoxification, medical stabilization, and psychiatric evaluation. 65-year-old male admitted for acute alcohol intoxication with withdrawal risk and metabolic acidosis, in the setting of heavy chronic alcohol use, psychiatric comorbidities, and recent coronary stent placement, requiring inpatient monitoring, detoxification, and multidisciplinary care. Acute alcohol intoxication with withdrawal risk Heavy daily alcohol intake with recent escalation last use yesterday CIWA protocol initiated Scheduled librium and PRN ativan Thiamine, folate, multivitamin supplementation Seizure and fall precautions acute Metabolic acidosis, likely alcohol-related Lactate 3.4 Anion gap 17, CO2 18 cont IV fluids for volume resuscitation Trend lactate and BMP Acute confusion and dizziness Likely multifactorial (alcohol intoxication vs withdrawal) CT head ordered to rule out intracranial pathology Neuro checks monitor for seizure precaution chronic Bipolar disorder and schizophrenia Denies SI/HI at this time Psychiatry consult requested Coronary artery disease status post recent stent no chest pain Stent placed approx [address] Oliveira Continue Plavix Monitor for bleeding risk during detox History of DVT and pulmonary embolism No signs of acute recurrence Monitor closely during hospitalization ppx lovenox for now Hypertension Monitor blood pressure Resume home antihypertensives as appropriate chronic problems Coronary artery disease status post stent History of DVT History of pulmonary embolism Bipolar disorder Schizophrenia Alcohol use disorder Hypertension FEN / PPx Fluids: IV normal saline Electrolytes: Monitor BMP daily Nutrition:cardiac diet as tolerated DVT Prophylaxis: SCDs (pharmacologic prophylaxis per bleeding risk) GI Prophylaxis: Protonix Plan discussed with: Patient My Orders Orders - SAM JUNG DO Procedure Category Date Status Time Calcium Carbonate PHA 11/19/25 In Process (Tums) 08:00 Date of Service: Nov 18, 2025 Billing Provider: SAM JUNG DO Common Visit Codes: [id number] INP/OBS CARE(HIGH) SAM JUNG DO Nov 19, 2025 10:34
[2025-11-19] MEDS ORDERED: QUET100T47 PO (11:23)
--- NOTE | 2025-11-20 22:15 | ECG ---
[facility] Test Date: 2025-11-17 Test Time: 07:24:26 Pat Name: RAMÍREZ WYLIE Department: Room: 0212T A Gender: M Cloud Developer: JR : [id number] Requested By: JÚNIOR NAVARRO Order Number: [id number] Reading MD: Jesús Lema Measurements Intervals [place] Rate: 121 P: -24 WA: 154 QRS: -32 QRSD: 93 T: 47 QT: 321 QTc: 456 Interpretive Statements Sinus tachycardia Left axis deviation Low voltage, precordial leads Minimal ST depression, lateral leads Electronically Signed On 11-21-2025 15:20:53 PST by Jesús Lema Please click the below link to view image of tracing.
== END 2025-11-19 15:00 | disposition home or self-care (01) | DRG 917 ==
LOC: ER 07:14 → OVERFLOW 12:13 → TELE-CENTR 14:35
PROVIDERS: ADMIT Internal Medicine; ATTEND Internal Medicine
DX: T51.91XA Toxic effect of unspecified alcohol, accidental (unintentional), initial encounter (principal); G92.8 Other toxic encephalopathy; E87.21 Acute metabolic acidosis; Z79.02 Long term (current) use of antithrombotics/antiplatelets; F10.129 Alcohol abuse with intoxication, unspecified; F31.9 Bipolar disorder, unspecified; I10 Essential (primary) hypertension; F20.9 Schizophrenia, unspecified; I25.10 Atherosclerotic heart disease of native coronary artery without angina pectoris; Z95.5 Presence of coronary angioplasty implant and graft; Z86.718 Personal history of other venous thrombosis and embolism; Z86.711 Personal history of pulmonary embolism; Z88.2 Allergy status to sulfonamides; Z82.49 Family history of ischemic heart disease and other diseases of the circulatory system; Y90.0 Blood alcohol level of less than 20 mg/100 ml; Y92.89 Other specified places as the place of occurrence of the external cause
CPT/HCPCS: 36415; 70450; 71045; 80048; 80053; 80320; 82962; 83605; 83735; 84484; 85025; 87040; 93005; 96365; 96375; 99291; G0378; J1885; J2250; J2405; J2470